=== PATIENT | female | born 1960 | race Caucasian/White ===

== ENCOUNTER 2023-11-12 15:56 | Inpatient (IN) ==
[2023-11-12 16:29] LABS: Basophils # (auto) 0.02 K/uL (0.00-0.20); Basophils % (auto) 0.3 %; Eosinophils # (auto) 0.13 K/uL (0.00-0.50); Eosinophils % (auto) 2.2 %; Hematocrit (blood only) 35.7 % (37.0-47.0); Hemoglobin 11.8 g/dl (12.0-16.0); Immature Granulocytes # (auto) 0.02 K/uL (0.01-0.20); Immature Granulocytes % (auto) 0.3 %; Lymphocytes # (auto) 1.93 K/uL (1.20-3.40); Lymphocytes % (auto) 33.3 %; Mean Corpuscular Hemoglobin 33.2 pg (25.0-34.0); Mean Corpuscular Hgb Conc 33.1 g/dL (32.0-36.0); Mean Corpuscular Volume 100.6 fL (80.0-100.0); Mean Platelet Volume 11.1 fL (9.4-12.4); Monocytes # (auto) 0.89 K/uL (0.11-0.59); Monocytes % (auto) 15.4 %; Neutrophils % (auto) 48.5 %; Platelet Count 122 K/uL (130-400); RDW Coefficient of Variation 13.3 % (11.5-14.5); RDW Standard Deviation 48.6 fL (36.4-46.3); Red Blood Count 3.55 M/uL (4.20-5.40); White Blood Count 5.79 K/ul (4.8-10.8)
[2023-11-12 16:45] LABS: Albumin Globulin Ratio 1.2 (0.9-2); Albumin Level 4.5 gm/dl (3.4-5.0); BUN Creatinine Ratio 22.4 (10-20); Bilirubin,Total 0.6 mg/dl (0.2-1.0); Calcium 9.4 mg/dl (8.6-10.3); Creatinine Clr Calc Pharmacy 31.9 ml/min; Est GFR (African American) 22.3 ml/min; Est GFR (Non-African American) 19.2 ml/min; Globulin 3.9 gm/dl (2.5-4.0); Total Protein 8.4 gm/dl (6.0-8.3)
[2023-11-12] MEDS: SODIUM CHLORIDE 0.9% 1,000 ML IV ONE (16:48)
[2023-11-12 16:59] LABS: Appearance Urine Clear (Clear); Bacteria Urine Automated Negative (Negative); Bilirubin Urine Negative (Negative); Blood Urine 3+ (Negative); Color Urine Yellow; Glucose Urine UA Negative (Negative); Ketones Urine Negative (Negative); Leukocyte Esterase Urine Negative (Negative); Nitrite Urine Negative (Negative); Protein Urine 2+ (Negative); RBC Urine Automated >30 /hpf (0-4); Urobilinogen Urine Negative (Negative); pH Urine 5.5 (4.5-7.5)
--- NOTE | 2023-11-12 17:02 | Emergency Department Note ---
Impression & Plan ELVI (acute kidney injury), Hematuria ED Provider Note NAME: ABDOULAYE PRICE AGE: 63 SEX: F : 1960 ARRIVES VIA: Walk-In INFORMANT: Patient, ED PROVIDER(S): Torres Verdugo DO CHIEF COMPLAINT: Elevated creatinine HPI: The patient is a 63-year-old female who has a history of ulcerative colitis who receives immunotherapy. She was sent to the emergency department because her labs prior to receiving her immunotherapy showed an elevated creatinine. She was sent to the emergency department for further evaluation. The patient denies having any nausea or vomiting. She denies having any chest pain. She has noticed some shortness of breath with exertion. ROS: See above HPI for pertinent positives & negatives. A total of 10 systems reviewed and were otherwise negative. PAST MEDICAL HISTORY: See Below PAST SURGICAL HISTORY: See Below FAMILY HISTORY: See Below SOCIAL HISTORY: See Below HOME MEDICATIONS: See Below ALLERGIES: See Below VITALS: See Below PHYSICAL EXAMINATION: GENERAL: Patient is awake alert in no acute distress patient is resting comfortably and showing no signs of anxiety EYES: The conjunctivae are clear. The pupils are round and reactive. EARS, NOSE, MOUTH AND THROAT: The nose is without any evidence of any deformity. NECK: The neck is nontender and supple. RESPIRATORY: Normal respiratory effort is noted there is no evidence of wheezing rhonchi or rales CARDIOVASCULAR: Regular rate and rhythm noted there no murmurs rubs or gallops normal S1 normal S2. GASTROINTESTINAL: The abdomen was mildly distended. There is no tenderness guarding rigidity MUSCULOSKELETAL/EXTREMITIES: There is no evidence of gross deformity full range of motion is noted in the hips and shoulders. SKIN: There is no obvious evidence of any rash. There are no petechiae, pallor or cyanosis noted. NEUROLOGIC: Patient is awake alert and oriented x3 strength is symmetric patellar reflexes are 2+ bilaterally MEDICAL DECISION MAKING: The patient is a 63-year-old female who presented to the emergency department for an evaluation of elevated creatinine. The patient followed up for her medication shot today. She had labs done prior to receiving her injection and was told that her creatinine was elevated. She was referred to the emergency department for "repeat labs". The patient was treated with IV fluids the emergency department. She was found to have an elevated blood pressure while in the emergency department. I am unsure if this is secondary to the elevation in her creatinine and some sort of acute kidney injury. I discussed her condition with the on-call [facility] hospitalist. They have agreed to evaluate the patient in the emergency department for further management and disposition Triage Nursing notes reviewed. Prior medical records reviewed Vital Signs: reviewed and remarkable for elevated blood pressure. Differential diagnosis: Infection, dehydration, metabolic abnormality, hypo/hyperglycemia, electrolyte disturbance, anemia, hypoxia, cardiac sources, intracerebral event, toxicologic, neurologic, as well as other pathologies. ER treatment provided: See below Diagnostics interpreted by me: ECG: EKG was obtained in the emergency department. My interpretation is normal sinus rhythm at [address] segment abnormalities were noted. There is no ectopy. No previous tracing was available Cardiac Monitoring: An order was placed for continuous cardiac monitoring. The monitor shows a rate of 89 bpm with sinus rhythm. Laboratory studies: As stated above and show below. Imaging studies: See below. Radiographic imaging was reviewed by myself Consultation(s): I discussed this case with Dr. Figueroa who is on-call for the [facility]ist group. Past Med/Surg History Medical History (Updated 11/12/23 @ 21:18 by Torres Verdugo DO) Arthritis "IBD ARTHRITIS" Ulcerative colitis Hypothyroidism Post traumatic stress disorder Anxiety History of COVID-19 05/26/22 VIA HOME TEST Sleep apnea CPAP Surgical History History of colonoscopy History of laparoscopy [place] teeth removed Family History Other No family history of adverse response to anesthesia Social History Smoking Status: Never smoker Second Hand Exposure: Yes ( A CHILD); Hx Alcohol Use: Yes Alcohol type: hard liquor Preferred Language: Latvian [employer] Required: No Beliefs That Will Affect Care: None Current Living Situation: Spouse Feels Safe at Home: Yes Assistive Devices: Contacts and CPAP Allergies Allergies Allergy/AdvReac Type Severity Reaction Status Date / Time poison gil extract Allergy Severe weeping Verified 11/12/23 19:54 sores ragweed pollen Allergy Mild ITCHY EYES Verified 11/12/23 19:54 Home Meds Home Medications Medication Instructions Recorded Confirmed ascorbic acid (vitamin C) 1,000 mg 1 g PO QAM 03/21/22 11/12/23 tablet (Vitamin C) cholecalciferol (vitamin D3) 50 50 mcg PO QAM 03/21/22 11/12/23 mcg (2,000 unit) capsule (Vitamin D3) cyanocobalamin (vitamin B-12) 1,000 mcg PO QAM 03/21/22 11/12/23 1,000 mcg tablet (Vitamin B-12) mirtazapine 15 mg tablet 15 mg PO HS 03/21/22 11/12/23 montelukast 10 mg tablet 10 mg PO HS 03/21/22 11/12/23 albuterol sulfate 90 mcg/actuation 2 puff inhalation Q6 PRN Shortness 11/12/23 11/12/23 aerosol inhaler Of Breath Or Wheezing alprazolam 0.5 mg disintegrating 0.5 mg PO DAILY PRN Anxiety 11/12/23 11/12/23 tablet baclofen 10 mg tablet 10 mg PO BID PRN Muscle Pain 11/12/23 11/12/23 citalopram 20 mg tablet 20 mg PO QAM 11/12/23 11/12/23 levothyroxine 137 mcg capsule 137 mcg PO DAILYBB 11/12/23 11/12/23 tramadol 50 mg tablet 50 mg PO Q6 PRN Pain 11/12/23 11/12/23 Previous Rx's Medication Instructions Recorded adalimumab 40 mg/0.4 mL See Rx Instructions subcut 05/23/21 subcutaneous pen kit (Humira(CF) .COMPLEX #2 ea Pen) vedolizumab 300 mg intravenous 300 mg IV Q8WK #1 ea 05/23/21 solution (Entyvio) Results & Data (ED) Vital Signs Vital Signs - 24 hr 11/12/23 15:58 11/12/23 16:01 11/12/23 16:52 Temperature 36.6 C Temperature Source Temporal Artery Scan Pulse Rate 101 H Pulse Rate [Apical] 88 Respiratory Rate 20 20 Respiratory Effort / Characteristics Non-Labored Respiratory Depth Normal Blood Pressure [Left Arm] Blood Pressure Mean [Left Arm] Pulse Oximetry 97 97 97 Oxygen Delivery Method Room Air Room Air Room Air Sepsis Recent Fever Within 48 Hours No Sepsis New/Unexplained Change in Mental Status No Sepsis Action Taken by Nursing No Action Required 11/12/23 17:17 11/12/23 19:48 Temperature Temperature Source Pulse Rate 89 Pulse Rate [Apical] 91 H Respiratory Rate 18 Respiratory Effort / Characteristics Non-Labored Respiratory Depth Normal Blood Pressure [Left Arm] 189/106 H Blood Pressure Mean [Left Arm] 133 Pulse Oximetry 96 Oxygen Delivery Method Room Air Sepsis Recent Fever Within 48 Hours Sepsis New/Unexplained Change in Mental Status Sepsis Action Taken by Assisted Medications Current Medication List: was personally reviewed by me Laboratory Data Attestation: I reviewed the patient's lab results. 11/12/23 16:04 11/12/23 16:04 Lab Results 11/12/23 11/12/23 Range/Units 16:04 17:05 WBC 5.79 (4.8-10.8) K/ul RBC 3.55 L (4.20-5.40) M/uL Hgb 11.8 L (12.0-16.0) g/dl Hct 35.7 L (37.0-47.0) % MCV 100.6 H (80.0-100.0) fL MCH 33.2 (25.0-34.0) pg MCHC 33.1 (32.0-36.0) g/dL RDW Std Deviation 48.6 H (36.4-46.3) fL RDW Coeff of Yobany 13.3 (11.5-14.5) % Plt Count 122 L (130-400) K/uL MPV 11.1 (9.4-12.4) fL Immature Gran % (Auto) 0.3 % Neut % (Auto) 48.5 % Lymph % (Auto) 33.3 % [place] % (Auto) 15.4 % Eos % (Auto) 2.2 % Baso % (Auto) 0.3 % Neut # (Auto) 2.80 (1.40-6.50) K/uL Lymph # (Auto) 1.93 (1.20-3.40) K/uL [place] # (Auto) 0.89 H (0.11-0.59) K/uL Eos # (Auto) 0.13 (0.00-0.50) K/uL Baso # (Auto) 0.02 (0.00-0.20) K/uL Immature Gran # (Auto) 0.02 (0.01-0.20) K/uL PT 11.6 (9.0-12.0) Seconds INR 1.1 (0.9-1.1) APTT 28 (21-31) Seconds PTT Ratio 1.0 Sodium 138 (136-145) mmol/L Potassium 4.0 (3.5-5.1) mmol/L Chloride 105 (98-107) mmol/L Carbon Dioxide 25 (21-32) mmol/L Anion Gap 8 (3-11) BUN 58 H (6-23) mg/dl Creatinine 2.59 H (0.6-1.2) mg/dl Est Cr Clr Drug Dosing 31.9 ml/min Est GFR ( Amer) 22.3 ml/min Est GFR (Non-Af Amer) 19.2 ml/min BUN/Creatinine Ratio 22.4 H (10-20) Glucose 93 (70-99(Fasting)) mg/dl Calcium 9.4 (8.6-10.3) mg/dl Total Bilirubin 0.6 (0.2-1.0) mg/dl AST 60 H (13-39) U/L ALT 53 H (7-52) U/L Alkaline Phosphatase 71 (34-104) U/L Troponin I High Sens 42.0 H 40.2 H (0-14) pg/ml Total Protein 8.4 H (6.0-8.3) gm/dl Albumin 4.5 (3.4-5.0) gm/dl Globulin 3.9 (2.5-4.0) gm/dl Albumin/Globulin Ratio 1.2 (0.9-2) Lipase 33 (11-82) U/L Folate 6.23 (>5.38) ng/ml Urine Color Yellow Urine Appearance Clear (Clear) Urine pH 5.5 (4.5-7.5) Ur Specific [place] 1.010 (1.000-1.030) Urine Protein 2+ H (Negative) Urine Glucose (UA) Negative (Negative) Urine Ketones Negative (Negative) Urine Blood 3+ H (Negative) Urine Nitrite Negative (Negative) Urine Bilirubin Negative (Negative) Urine Urobilinogen Negative (Negative) Ur Leukocyte Esterase Negative (Negative) Urine WBC (Auto) 1-5 (0-5) /hpf Urine RBC (Auto) >30 H (0-4) /hpf U Hyaline Cast (Auto) 1-5 (0-5) /lpf U Epithel Cells (Auto) 5-10 H (0-5) /lpf Urine Bacteria (Auto) Negative (Negative) Ur Random Creatinine 36.3 mg/dl U Random Total Protein 109.8 H (0-11.9) mg/dl Protein/Creatinin Ratio 3.0 H (0-0.2) Administered Medications Discontinued Medications Alprazolam (Alprazolam 0.5 Mg Tablet) 0.5 mg PO NOW STA Stop: 11/12/23 19:10 Last Admin: 11/12/23 19:17 Dose: 0.5 mg Documented By: KAREN Sodium Chloride (Nss) 1,000 mls @ 999 mls/hr IV .Q1H1M ONE Stop: 11/12/23 17:36 Last Infusion: 11/12/23 18:13 Dose: Infused Documented By: Admin: 11/12/23 16:48 Dose: 999 mls/hr Documented By: STERLING Ceftriaxone Sodium (Rocephin) 2,000 mg in 50 mls @ 100 mls/hr IV NOW STA Stop: 11/12/23 19:02 Last Infusion: 11/12/23 19:37 Dose: Infused Documented By: Admin: 11/12/23 18:42 Dose: 100 mls/hr Documented By: STERLING Imaging Data Attestation: I personally reviewed and interpreted this imaging study as follows: My Impression: 1 view chest x-ray was obtained in the emergency department. My interpretation is no free air or definite infiltrate, final report below CT of the abdomen and pelvis was obtained in the emergency department. My interpretation is no free air or signs of bowel obstruction, final report below Radiologist's Impression: Chest X-Ray 11/12/23 16:36 SINGLE VIEW CHEST CLINICAL HISTORY: Atypical chest pain. FINDINGS: An AP, portable, upright chest radiograph is obtained. No prior studies are available for comparison at the time of dictation. The cardiomediastinal silhouette is unremarkable. There is mild elevation of the right hemidiaphragm. The lungs and pleural spaces are clear noting mild bibasilar atelectasis. No pneumothorax is seen. The skeletal structures are osteopenic. The bony thorax is grossly intact. Arthritic change is noted in the shoulders. IMPRESSION: No active disease in the chest. ACT 112: Negative or not required by law. Electronically signed by: German Granado M.D. 11/12/2023 5:17 PM Abdomen/Pelvis CT 11/12/23 17:18 CT SCAN OF THE ABDOMEN AND PELVIS WITHOUT IV CONTRAST CLINICAL HISTORY: Left flank pain. COMPARISON STUDY: Abdominal CT dated 03/21/2022. TECHNIQUE: CT scan of the abdomen and pelvis is performed from the lung bases to the proximal femora. Images are reviewed in the axial, sagittal, and coronal planes. IV contrast was not administered for this examination. A dose lowering technique was utilized adhering to the principles of ALARA. CT DOSE: 1779.56 mGy.cm FINDINGS: Lung bases: The heart is normal in size and without pericardial effusion. The lung bases are clear noting dependent atelectasis. Liver: The unenhanced liver is enlarged, measuring 24 cm in length. The liver is heterogeneous and cirrhotic in morphology. There is hypertrophy of the left lobe and nodularity of the surface contour. There is no intrahepatic biliary ductal dilatation. Gallbladder: Unremarkable. Spleen: The spleen is enlarged measuring 14.8 cm in length. Pancreas: The unenhanced pancreas is moderately atrophic and grossly unremarkable. Adrenal glands: Unremarkable. Kidneys: The unenhanced kidneys demonstrate mild cortical atrophy and are without hydronephrosis. No renal calculi are identified and there is no ureteral stone. There is no evidence of contour deforming renal mass lesion. Abdominal vasculature: The abdominal aorta is normal in course and caliber noting moderate to advanced atherosclerotic calcification. Bowel: There is mild colonic fecal retention. No bowel obstruction is seen. The appendix is well-visualized and normal. Peritoneum: There is no intraperitoneal free air or abdominal ascites. There is a fat-containing umbilical hernia. Lymphadenopathy: None. Pelvic viscera: The bladder, uterus, and adnexa are normal as visualized. Skeletal structures: The skeletal structures are osteopenic. There is mild lumbosacral spondylosis. No lytic or blastic lesions are seen. 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 IMPRESSION: 1. No acute infectious or inflammatory findings are identified in the abdomen or pelvis. 2. The liver is enlarged, heterogeneous, and cirrhotic in morphology. 3. Splenomegaly. 4. 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 5. Additional findings as above. ACT 112: Negative or not required by law. Electronically signed by: German Granado M.D. 11/12/2023 5:51 PM Discharge Plan Visit Data Chief Complaint: Abnormal Labs/Diagnostic Testing Stated Complaint: ABNORMAL LABS, ACUTE KIDNEY INJURY ED Provider: Torres Verdugo Discharge Problem: ELVI (acute kidney injury), Hematuria Patient Disposition: Being Evaluated by Hospitalist Forms Stand Alone Forms: My [facility] Prescriptions Prescriptions: No Action Entyvio 300 mg recon soln 300 mg IV Q8WK Qty: 1 6RF Humira(CF) Pen 40 mg/0.4 mL pen injector kit See Rx Instructions subcut .COMPLEX Qty: 2 2RF Rx Instructions: inject one - 40 mg/0.4 mL pen every 2 weeks subcut ascorbic acid (vitamin C) [Vitamin C] 1,000 mg Tablet 1 g PO QAM cyanocobalamin (vitamin B-12) [Vitamin B-12] 1,000 mcg Tablet 1,000 mcg PO QAM cholecalciferol (vitamin D3) [Vitamin D3] 50 mcg (2,000 unit) Capsule 50 mcg PO QAM montelukast 10 mg tablet 10 mg PO HS mirtazapine 15 mg tablet 15 mg PO HS alprazolam 0.5 mg tablet,disintegrating 0.5 mg PO DAILY PRN (Reason: Anxiety) albuterol sulfate 90 mcg/actuation HFA aerosol inhaler 2 puff INHALATION Q6 PRN (Reason: Shortness Of Breath Or Wheezing) citalopram 20 mg tablet 20 mg PO QAM levothyroxine 137 mcg capsule 137 mcg PO DAILYBB tramadol 50 mg tablet 50 mg PO Q6 PRN (Reason: Pain) baclofen 10 mg Tablet 10 mg PO BID PRN (Reason: Muscle Pain) Referrals Referrals: Denia Calderon MD [Primary Care Provider] - Discharge Problem: Hematuria Qualifiers: Hematuria type: unspecified type Qualified Code(s): R31.9 - Hematuria, unspecified
[2023-11-12 17:09] LABS: INR 1.1 (0.9-1.1); Partial Thromboplastin Time 28 Seconds (21-31); Prothrombin Time 11.6 Seconds (9.0-12.0)
--- NOTE | 2023-11-12 17:19 | XRay Report ---
SINGLE VIEW CHEST CLINICAL HISTORY: Atypical chest pain. FINDINGS: An AP, portable, upright chest radiograph is obtained. No prior studies are available for c omparison at the time of dictation. The cardiomediastinal silhouette is unremarkable. There is mild e levation of the right hemidiaphragm. The lungs and pleural spaces are clear noting mild bibasilar ate lectasis. No pneumothorax is seen. The skeletal structures are osteopenic. The bony thorax is grossly intact. Arthritic change is noted in the shoulders. IMPRESSION: No active disease in the chest. ACT 112: Negative or not required by law. Electronically signed by: German Granado M.D. 11/12/2023 5:17 PM
--- NOTE | 2023-11-12 17:53 | CT Scan Report ---
CT SCAN OF THE ABDOMEN AND PELVIS WITHOUT IV CONTRAST CLINICAL HISTORY: Left flank pain. COMPARISON STUDY: Abdominal CT dated 03/21/2022. TECHNIQUE: CT scan of the abdomen and pelvis is performed from the lung bases to the proximal femora. Images are reviewed in the axial, sagittal, and coronal planes. IV contrast was not administered for this examination. A dose lowering technique was utilized adhering to the principles of ALARA. CT DOSE: 1779.56 mGy.cm FINDINGS: Lung bases: The heart is normal in size and without pericardial effusion. The lung bases are clear no ting dependent atelectasis. Liver: The unenhanced liver is enlarged, measuring 24 cm in length. The liver is heterogeneous and ci rrhotic in morphology. There is hypertrophy of the left lobe and nodularity of the surface contour. T here is no intrahepatic biliary ductal dilatation. Gallbladder: Unremarkable. Spleen: The spleen is enlarged measuring 14.8 cm in length. Pancreas: The unenhanced pancreas is moderately atrophic and grossly unremarkable. Adrenal glands: Unremarkable. Kidneys: The unenhanced kidneys demonstrate mild cortical atrophy and are without hydronephrosis. No renal calculi are identified and there is no ureteral stone. There is no evidence of contour deformin g renal mass lesion. Abdominal vasculature: The abdominal aorta is normal in course and caliber noting moderate to advance d atherosclerotic calcification. Bowel: There is mild colonic fecal retention. No bowel obstruction is seen. The appendix is well-vis ualized and normal. Peritoneum: There is no intraperitoneal free air or abdominal ascites. There is a fat-containing umbi lical hernia. Lymphadenopathy: None. Pelvic viscera: The bladder, uterus, and adnexa are normal as visualized. Skeletal structures: The skeletal structures are osteopenic. There is mild lumbosacral spondylosis. N o lytic or blastic lesions are seen. 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 IMPRESSION: 1. No acute infectious or inflammatory findings are identified in the abdomen or pelvis. 2. The liver is enlarged, heterogeneous, and cirrhotic in morphology. 3. Splenomegaly. 4. 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 5. Additional findings as above. ACT 112: Negative or not required by law. Electronically signed by: German Granado M.D. 11/12/2023 5:51 PM
--- NOTE | 2023-11-12 18:35 | History & Physical Report ---
Date of Service November 12, 2023 Assessment & Plan (1) ELVI (acute kidney injury): Plan: -Admit to med/tele -Currently Hypertensive with systolics in the 160's but otherwise stable -Presented to the ED today after being told by the infusion center that routine labs were abnormal -Cr is 2.58 today, baseline appears near 0.8 -No signs of obstruction on CT of the abd/pelvis, has not been taking NSAID's, does not have a UTI as her UA is without signs of infection and she is asymptomatic -She has been hypertensive since arrival, states she has severe white coat syndrome, home systolic BP normally runs in the 130's but unsure how often she is checking it at home -Protein:Cr ordered on admission is 3.0, this could be indicative of Nephrotic syndrome or another intra-renal issue, will consult Nephrology -S/P 1L NSS in the ED, we will give 1L NSS at 80 mL/hr overnight for light hydration -Avoid nephrotoxic agents -Monitor intake/output q6h -BL DANISHA's for DVT PPX for now -HH/renal dialysis diet with 2gm sodium restriction for now -AM CBC, CMP, mag, PT/INR (2) HTN (hypertension): Plan: -Has been hypertensive with systolics in the 160-180's since arrival -Is otherwise asymptomatic -Was very anxious at the start of my exam, has a hx of severe anxiety and white coat syndrome -Not currently on outpatient antihypertensives -We will give her a dose of her home xanax now and recheck her BP in both arms after -If still hypertensive will add prn hydralazine for now -Continue to monitor on tele -Will obtain TTE tomorrow (3) Cirrhosis: Plan: -Noted on CT of the abd/pelvis along with splenomegaly -Portal vein and CBD are WNL -INR is WNL -Mild AST and ALT elevations today, have been higher in the past -Likely due to progression of her fatty liver disease, although she was a daily alcohol user until last month and Humira can cause hepatotoxicity -Monitor daily LFT's and platelets -If LFT's are stable could likely FU with [facility] outpatient (4) Thrombocytopenia: Plan: -Platelets of 122 today -No signs of jena bleeding -Likely due to her Cirrhosis -Monitor daily CBC -Monitor for signs of bleeding (5) Elevated troponin: Plan: -Initial high sen trop elevated at 42-->40 on 2 hour repeat -Patient denies chest pain -No acute ST segment or T-wave changes -Likely falsely elevated due to ELVI -Continue to monitor on tele -Monitor TTE tomorrow (6) Microscopic hematuria: Plan: -3+ blood and >30 RBC's on UA today -No gross hematuria noted -No acute bladder abnormalities on CT of the abd/pelvis -No signs of UTI, was given a dose of Ceftriaxone in the ED -Follow Nephrology consult -May need Urology consult for cystoscopy (7) Avascular necrosis of bones of both hips: Plan: -Noted on CT of the abd/pelvis today -Had known arthritis of the BL hips on previous CT's -Pain has been slightly worse recently but denies significant ambulatory dysfunction or recent trauma -Patient is on prn tramadol and baclofen at home for pain >Will half the doses of both for now with her hepatic and renal dysfunction at this time but will not hold completely to avoid withdrawals (8) Anxiety: Plan: -Continue xanax, citalopram -Will hold HS Remeron at this time as it can be both hepatotoxic and nephrotoxic (9) Hypothyroidism: Plan: -Conitnue levothyroxine (10) Sleep apnea: Plan: -HS CPAP ordered Plan The patient was discussed with Dr. Figueroa at the time of the admission History of Present Illness Chief Complaint: Abnormal outpatient labs Primary Care Provider: Denia Calderon MD Laura is a 63 year old female with a PMH significant for Ulcerative Colitis (On Entyvio and Cosentyx), uncontrolled HTN, anxiety who was sent to the [facility] ED from the Infusion Center this afternoon after routine outpatient labs were noted to be abnormal. On arrival to the ED she was noted to be Hypertensive at 189/106, tachycardic at 101, but otherwise stable. Labs were significant for a hgb of 11.8 (down from 13 as of 04/24/23), platelets of 122 (down from 147 as of 04/24), Cr of 2.59 (baseline is near 0.8), BUN of 58, AST of 60, ALT of 53, initial high sen trop of 42, and UA with 2+ protein, 3+ blood, >30 RBC, and 5-10 epithelial cells. Chest xray was negative for acute findings. CT of the abd/pelvis wo IV con was read as "1. No acute infectious or inflammatory findings are identified in the abdomen or pelvis. 2. The liver is enlarged, heterogeneous, and cirrhotic in morphology. 3. Splenomegaly. 4. 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 5. Additional findings as above.". Prior to admission the patient was given 1L NSS and one dose of Ceftriaxone. At the time of the exam the patient was sitting in bed in no acute distress with her sitting bedside, history was obtained from both. She states that she receives Q8W Entyvio infusions and Q2W Humira infusions with her last Humira infusion being on 11/04. She had her infusion of Entyvio this am where her routine labs were drawn. When asked, she denies recent fever, chills, chest pain, SOB, cough, abd pain, nausea, vomiting, diarrhea, dysuria, hematuria, melena, LE swelling, and recent trauma. She confirms her previous diagnosis of fatty liver disease but did not know that it progressed to cirrhosis. When asked about HTN, she states that she is always hypertensive when her BP is checked at medical facilities but her systolic BP normally runs in the 130's when it's checked at home. She denies recent NSAID use or frequent Acetaminophen use. She has never used tobacco. When asked about alcohol use, she states that she was drinking 2, double shots of vodka nightly for "years". She recently quit drinking last month and denies any withdrawal symptoms. Regarding the avascular necrosis of the BL hips, she states that she has had arthritis in her hips for years. Her pain has been worse recently but she denies ambulatory dysfunction. She is a full code and wishes for her to make medical decisions for her if she cannot make them herself. Please refer to Dr. Figueroa' attestation for any changes to the treatment plan Allergies Allergy/AdvReac Type Severity Reaction Status Date / Time poison gil extract Allergy Severe weeping Verified 11/12/23 19:54 sores ragweed pollen Allergy Mild ITCHY EYES Verified 11/12/23 19:54 Home Medications Medication Instructions Recorded Confirmed Type adalimumab 40 mg/0.4 mL See Rx Instructions subcut 05/23/21 11/12/23 Rx subcutaneous pen kit (Humira(CF) .COMPLEX #2 ea Pen) vedolizumab 300 mg intravenous 300 mg IV Q8WK #1 ea 05/23/21 11/12/23 Rx solution (Entyvio) ascorbic acid (vitamin C) 1,000 mg 1 g PO QAM 03/21/22 11/12/23 History tablet (Vitamin C) cholecalciferol (vitamin D3) 50 50 mcg PO QAM 03/21/22 11/12/23 History mcg (2,000 unit) capsule (Vitamin D3) cyanocobalamin (vitamin B-12) 1,000 mcg PO QAM 03/21/22 11/12/23 History 1,000 mcg tablet (Vitamin B-12) mirtazapine 15 mg tablet 15 mg PO HS 03/21/22 11/12/23 History montelukast 10 mg tablet 10 mg PO HS 03/21/22 11/12/23 History albuterol sulfate 90 mcg/actuation 2 puff inhalation Q6 PRN Shortness 11/12/23 11/12/23 History aerosol inhaler Of Breath Or Wheezing alprazolam 0.5 mg disintegrating 0.5 mg PO DAILY PRN Anxiety 11/12/23 11/12/23 History tablet baclofen 10 mg tablet 10 mg PO BID PRN Muscle Pain 11/12/23 11/12/23 History citalopram 20 mg tablet 20 mg PO QAM 11/12/23 11/12/23 History levothyroxine 137 mcg capsule 137 mcg PO DAILYBB 11/12/23 11/12/23 History tramadol 50 mg tablet 50 mg PO Q6 PRN Pain 11/12/23 11/12/23 History Past Med/Surg History Medical History (Updated 11/12/23 @ 20:03 by Erickson Henriquez PA-C) Arthritis "IBD ARTHRITIS" Ulcerative colitis Hypothyroidism Post traumatic stress disorder Anxiety History of COVID-19 05/26/22 VIA HOME TEST Sleep apnea CPAP Surgical History History of colonoscopy History of laparoscopy [place] teeth removed Family History Other No family history of adverse response to anesthesia Social History Smoking Status: Never smoker Second Hand Exposure: Yes ( A CHILD); Hx Alcohol Use: Yes Alcohol type: hard liquor Preferred Language: Japanese [employer] Required: No Beliefs That Will Affect Care: None Current Living Situation: Spouse Feels Safe at Home: Yes Assistive Devices: Contacts and CPAP Physical Exam Physical Exam: Physical Exam: General: In no acute distress, stated age, morbidly obese, non-toxic appearing HEENT: Normocephalic, atraumatic, no scleral icterus, pupils around round, symmetrical, and reactive to light, moist mucus membranes, trachea midline, no thyromegaly Chest/Pulm: No respiratory distress, symmetrical chest expansion, clear breath sounds throughout Cardiac: RRR, no murmurs noted Abdomen: Negative for ascites and bruising, normoactive bowel sounds, soft, non-tender to palpation throughout Musculoskeletal: Symmetrical and without signs of acute trauma, upper and lower extremities with full ROM, no atrophy, spasticity, or flaccidity Extremities: Radial, dorsalis pedis, and posterior tibial pulses are intact and symmetrical, no edema noted in the BL LE's Skin: Warm, dry, no rashes , lesions, or scars noted Neuro: Alert and oriented to person, place, month, year, and president, no focal defects, no tremors noted Psych: Anxious but polite and cooperative during the exam Results & Data Results & Data Vital Signs (Past 12 Hours) Vital Signs Temp Pulse Pulse Resp BP Pulse Ox O2 Del Method 11/12/23 17:17 91 H 18 189/106 H 96 Room Air 11/12/23 16:52 97 Room Air 11/12/23 16:01 88 20 97 Room Air 11/12/23 15:58 36.6 C 101 H 20 97 Room Air Laboratory Results Abnormal lab results 11/12/23 11/12/23 Range/Units 16:04 17:05 RBC 3.55 L (4.20-5.40) M/uL Hgb 11.8 L (12.0-16.0) g/dl Hct 35.7 L (37.0-47.0) % MCV 100.6 H (80.0-100.0) fL RDW Std Deviation 48.6 H (36.4-46.3) fL Plt Count 122 L (130-400) K/uL [place] # (Auto) 0.89 H (0.11-0.59) K/uL BUN 58 H (6-23) mg/dl Creatinine 2.59 H (0.6-1.2) mg/dl BUN/Creatinine Ratio 22.4 H (10-20) AST 60 H (13-39) U/L ALT 53 H (7-52) U/L Troponin I High Sens 42.0 H 40.2 H (0-14) pg/ml Total Protein 8.4 H (6.0-8.3) gm/dl Urine Protein 2+ H (Negative) Urine Blood 3+ H (Negative) Urine RBC (Auto) >30 H (0-4) /hpf U Epithel Cells (Auto) 5-10 H (0-5) /lpf U Random Total Protein 109.8 H (0-11.9) mg/dl Protein/Creatinin Ratio 3.0 H (0-0.2) Diagnostic Findings Chest X-Ray 11/12/23 16:36 SINGLE VIEW CHEST CLINICAL HISTORY: Atypical chest pain. FINDINGS: An AP, portable, upright chest radiograph is obtained. No prior studies are available for comparison at the time of dictation. The cardiomediastinal silhouette is unremarkable. There is mild elevation of the right hemidiaphragm. The lungs and pleural spaces are clear noting mild bibasilar atelectasis. No pneumothorax is seen. The skeletal structures are osteopenic. The bony thorax is grossly intact. Arthritic change is noted in the shoulders. IMPRESSION: No active disease in the chest. ACT 112: Negative or not required by law. Electronically signed by: German Granado M.D. 11/12/2023 5:17 PM Abdomen/Pelvis CT 11/12/23 17:18 CT SCAN OF THE ABDOMEN AND PELVIS WITHOUT IV CONTRAST CLINICAL HISTORY: Left flank pain. COMPARISON STUDY: Abdominal CT dated 03/21/2022. TECHNIQUE: CT scan of the abdomen and pelvis is performed from the lung bases to the proximal femora. Images are reviewed in the axial, sagittal, and coronal planes. IV contrast was not administered for this examination. A dose lowering technique was utilized adhering to the principles of ALARA. CT DOSE: 1779.56 mGy.cm FINDINGS: Lung bases: The heart is normal in size and without pericardial effusion. The lung bases are clear noting dependent atelectasis. Liver: The unenhanced liver is enlarged, measuring 24 cm in length. The liver is heterogeneous and cirrhotic in morphology. There is hypertrophy of the left lobe and nodularity of the surface contour. There is no intrahepatic biliary ductal dilatation. Gallbladder: Unremarkable. Spleen: The spleen is enlarged measuring 14.8 cm in length. Pancreas: The unenhanced pancreas is moderately atrophic and grossly unremarkable. Adrenal glands: Unremarkable. Kidneys: The unenhanced kidneys demonstrate mild cortical atrophy and are without hydronephrosis. No renal calculi are identified and there is no ureteral stone. There is no evidence of contour deforming renal mass lesion. Abdominal vasculature: The abdominal aorta is normal in course and caliber noting moderate to advanced atherosclerotic calcification. Bowel: There is mild colonic fecal retention. No bowel obstruction is seen. The appendix is well-visualized and normal. Peritoneum: There is no intraperitoneal free air or abdominal ascites. There is a fat-containing umbilical hernia. Lymphadenopathy: None. Pelvic viscera: The bladder, uterus, and adnexa are normal as visualized. Skeletal structures: The skeletal structures are osteopenic. There is mild lumbosacral spondylosis. No lytic or blastic lesions are seen. There is avasc ular necrosis of the femoral heads, left greater than right. IMPRESSION: 1. No acute infectious or inflammatory findings are identified in the abdomen or pelvis. 2. The liver is enlarged, heterogeneous, and cirrhotic in morphology. 3. Splenomegaly. 4. 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 5. Additional findings as above. ACT 112: Negative or not required by law. Electronically signed by: German Granado M.D. 11/12/2023 5:51 PM ECG Additional Comments: Normal sinus rhythm Nonspecific ST and T wave abnormality Abnormal ECG No previous ECGs available Code Status & VTE Plan Code Status Full code VTE Prophylaxis Plan VTE Prophylaxis will be ordered: Yes Supervising Physician Co-Signing Physician Notes I have personally seen, evaluated and examined the patient. I have also personally discussed the management of the patient with the resident physician/DIEGO and I agree with the exam findings documented in the history and physical examination and the documented assessment and plan unless otherwise stated below. Brief Exam: In general is a pleasant 63-year-old female who is alert and oriented x 3 at time my exam she is accompanied by her at the time my examination. HEENT is normocephalic atraumatic. Heart is regular rate and rhythm with no murmur. Lungs: Are diminished but clear. Abdomen is obese soft and nontender remaining abdominal exam is somewhat equivocal given her body habitus. Extremities: Are intact with no significant edema Neurologically she is alert and oriented x 3. Assessment/plan: As described above. Please refer to orders for further planning. PG Care Time/CCT Total # of Minutes Spent Total Time Spent with Patient: Total time spent is greater than 50% in coordination of care (as documented) at patient's floor/unit and/or counseling patient: C[place] [address] INT INP/OBS CARE 3/75MIN Patient Type Established History Comprehensive Exam Comprehensive Medical Decision Making High Complexity Diagnoses ELVI (acute kidney injury) N17.9 HTN (hypertension) I10 Cirrhosis K74.60 Thrombocytopenia D69.6 Elevated troponin R79.89 Microscopic hematuria R31.29 Avascular necrosis of bones of both hips M87.051; M87.052 Anxiety F41.9 Hypothyroidism E03.9 Sleep apnea G47.30
[2023-11-12] MEDS: cefTRIAXone SODIUM 2,000 MG/50 ML BAG IV STA (18:42)
[2023-11-12] MEDS: ALPRAZolam 0.5 MG TABLET PO STA (19:17)
[2023-11-12 19:32] LABS: Total Protein Urine Random 109.8 mg/dl (0-11.9)
[2023-11-12 19:38] LABS: Creatinine Urine Random 36.3 mg/dl
[2023-11-12] MEDS: SODIUM CHLORIDE 0.9% 1,000 ML IV SCH (21:58)
[2023-11-12] MEDS ORDERED: BACLOFEN 10 MG TAB PO PRN (23:45)
[2023-11-12] MEDS ORDERED: METOPROLOL TARTRATE 1 MG/ML VIAL IV PRN (23:57)
[2023-11-13] MEDS: ALBUTEROL HFA 8 GM INHALER INH PRN
[2023-11-13] MEDS: METOPROLOL TARTRATE 1 MG/ML VIAL IV STA (00:07)
[2023-11-13 05:04] LABS: Albumin Globulin Ratio 1.1 (0.9-2); Albumin Level 3.9 gm/dl (3.4-5.0); BUN Creatinine Ratio 20.9 (10-20); Bilirubin,Total 0.5 mg/dl (0.2-1.0); Calcium 8.7 mg/dl (8.6-10.3); Creatinine Clr Calc Pharmacy 32.7 ml/min; Est GFR (African American) 22.9 ml/min; Est GFR (Non-African American) 19.8 ml/min; Globulin 3.5 gm/dl (2.5-4.0); Magnesium 1.9 mg/dl (1.7-2.4); Potassium 4.4 mmol/L (3.5-5.1); Total Protein 7.4 gm/dl (6.0-8.3)
[2023-11-13 05:24] LABS: INR 1.1 (0.9-1.1); Prothrombin Time 12.1 Seconds (9.0-12.0)
[2023-11-13] MEDS: LEVOTHYROXINE SODIUM 137 MCG TABLET PO SCH (06:37)
[2023-11-13 07:33] LABS: Basophils # (auto) 0.03 K/uL (0.00-0.20); Basophils % (auto) 0.5 %; Eosinophils # (auto) 0.06 K/uL (0.00-0.50); Hematocrit (blood only) 31.6 % (37.0-47.0); Hemoglobin 10.6 g/dl (12.0-16.0); Immature Granulocytes # (auto) 0.03 K/uL (0.01-0.20); Immature Granulocytes % (auto) 0.5 %; Lymphocytes # (auto) 1.07 K/uL (1.20-3.40); Mean Corpuscular Hemoglobin 33.2 pg (25.0-34.0); Mean Corpuscular Hgb Conc 33.5 g/dL (32.0-36.0); Mean Corpuscular Volume 99.1 fL (80.0-100.0); Mean Platelet Volume 11.2 fL (9.4-12.4); Monocytes # (auto) 0.83 K/uL (0.11-0.59); Monocytes % (auto) 13.9 %; Neutrophils # (auto) 3.94 K/uL (1.40-6.50); Neutrophils % (auto) 66.1 %; Platelet Count 101 K/uL (130-400); RDW Coefficient of Variation 13.3 % (11.5-14.5); Red Blood Count 3.19 M/uL (4.20-5.40); White Blood Count 5.96 K/ul (4.8-10.8)
[2023-11-13] MEDS: hydrALAZINE HCL 20 MG/ML VIAL IV PRN ×2 (08:24→11:05)
[2023-11-13] MEDS: CITALOPRAM 20 MG TAB PO SCH (08:25)
[2023-11-13] MEDS: ALPRAZolam 0.25 MG TABLET PO PRN (08:25)
--- NOTE | 2023-11-13 09:03 | Nephrology Consultation ---
Date of Consultation November 13, 2023 Assessment & Plan (1) ELVI (acute kidney injury): Non-oliguric. Volume status acceptable. Electrolytes normal. There is no emergent indication for renal replacement therapy. Baseline creatinine <1 mg/dL. Etiology of ELVI unclear. Clinical history is atypical for ATN. Patient is not clinically volume depleted. CT did not demonstrate obstruction. Urine studies and clinical history suggestive of acute GN. Thankfully, findings have not suggested RPGN. Serologic evaluation, including ESR, BRICE, ANCA, C3/C4, anti-BM, screening for viral hepatitis B and C, and PLA2r has been requested. I advised Laura that kidney biopsy may ultimately be required for definitive diagnosis. Urine protein excretion will be quantified with a 24 hour collection. PCR suggests possible nephrotic range proteinuria. Serum albumin normal. Please document strict I/Os. Repeat metabolic profile sent with additional laboratory studies. Medications are appropriate for kidney function. Baclofen stopped. (2) Microscopic hematuria: Non-smoker. No history of gross hematuria. CT without lesions. No casts reported on microscopy. Prospective monitoring will be provided. High suspicion for glomerular hematuria. (3) HTN (hypertension): Accelerated but Laura denies symptoms. Chronic history noted but not on medical therapy at home. Known history of significant white coat hypertension reported. Amlodipine was provided this morning. Defer RAASi pending additional monitoring of kidney function. Volume status is replete. IV saline discontinued. PRN labetalol and hydralazine ordered. I would favor labetalol. Additional 5 mg of Amlodipine can be provided if BP does not start to improve in the next hour. Renal duplex requested to r/o TOÑO and to assure there is no RVT. (4) Cirrhosis: Urine sodium pending. Presentation atypical for HRS --> non-oliguric and hypertensive. Cirrhotic based on imaging. Known history of HESTER. No liver biopsy. (5) Avascular necrosis of bones of both hips: History of Present Illness Reason for Consultation: ELVI, microscopic hematuria, HTN Requesting Physician: Sudhakar Garcia MD Attending Physician: Sudhakar Garcia MD History of Present Illness Laura Trevizo is a 63 year-old female with a history of hypothyroidism, ulcerative colitis, CHANTALE, morbid obesity, hypertension, AUGUSTO, and chronic liver disease attributed to HESTER. 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 Baseline creatinine is <1 mg/dL. Laboratory studies on presentation notable for a creatinine of 2.59 mg/dL. She denies any prior history of kidney injury or dysfunction. She has never been previously evaluated by a manager purchasing. Overall, Laura states that she has been feeling relatively well and was very surprised by the change in her blood work. She had no appreciated any fluid retention or edema. She denies any change in urine output. She had experienced an increased number of unformed bowel movements recently. She denies melena or hematochezia. She has not experienced skin rash or lesions. Polyarthritis involving the the small joints in her hands increased but without synovitis or effusions. Laura follows in the [facility] rheumatology clinic with Dr. Webster. Prior therapies in the past have included Humira and Cosentyx, as well as long periods of corticosteroid use. Laura was seen and evaluated in the ER with her at the bedside. She endorsed some anxiety overnight. She is feeling better this morning. She developed difficulty breathing that improved with BIPAP. This AM, she was weaned to a nasal canula. She did not endorse dyspnea during our conversation. She has not experienced any fevers or chills. Urine analysis was notable for microscopic hematuria and +3 protein. PCR 3.0. Urine microscopy with >30 RBC, no WBC, +hyaline casts. CT of the abdomen demonstrated the kidneys to be unobstructed. The liver is cirrhotic in appearance. AVN of the hips noted. She has a known history of chronic liver disease. This was attributed to HESTER. She has never had a liver biopsy. She has a drinking history which included 1-2 drinks nightly. She is a non-smoker. There is no significant history of NSAID use. Allergies Allergy/AdvReac Type Severity Reaction Status Date / Time poison gil extract Allergy Severe weeping Verified 11/12/23 19:54 sores ragweed pollen Allergy Mild ITCHY EYES Verified 11/12/23 19:54 Home Medications Medication Instructions Recorded Confirmed Type adalimumab 40 mg/0.4 mL See Rx Instructions subcut 05/23/21 11/12/23 Rx subcutaneous pen kit (Humira(CF) .COMPLEX #2 ea Pen) vedolizumab 300 mg intravenous 300 mg IV Q8WK #1 ea 05/23/21 11/12/23 Rx solution (Entyvio) ascorbic acid (vitamin C) 1,000 mg 1 g PO QAM 03/21/22 11/12/23 History tablet (Vitamin C) cholecalciferol (vitamin D3) 50 50 mcg PO QAM 03/21/22 11/12/23 History mcg (2,000 unit) capsule (Vitamin D3) cyanocobalamin (vitamin B-12) 1,000 mcg PO QAM 03/21/22 11/12/23 History 1,000 mcg tablet (Vitamin B-12) mirtazapine 15 mg tablet 15 mg PO HS 03/21/22 11/12/23 History montelukast 10 mg tablet 10 mg PO HS 03/21/22 11/12/23 History albuterol sulfate 90 mcg/actuation 2 puff inhalation Q6 PRN Shortness 11/12/23 11/12/23 History aerosol inhaler Of Breath Or Wheezing alprazolam 0.5 mg disintegrating 0.5 mg PO DAILY PRN Anxiety 11/12/23 11/12/23 History tablet baclofen 10 mg tablet 10 mg PO BID PRN Muscle Pain 11/12/23 11/12/23 History citalopram 20 mg tablet 20 mg PO QAM 11/12/23 11/12/23 History levothyroxine 137 mcg capsule 137 mcg PO DAILYBB 11/12/23 11/12/23 History tramadol 50 mg tablet 50 mg PO Q6 PRN Pain 11/12/23 11/12/23 History Patient History Medical History Arthritis "IBD ARTHRITIS" Ulcerative colitis Hypothyroidism Post traumatic stress disorder Anxiety History of COVID-19 05/26/22 VIA HOME TEST Sleep apnea CPAP Surgical History History of colonoscopy History of laparoscopy [place] teeth removed Family History Other No family history of adverse response to anesthesia Social History Smoking Status: Never smoker Second Hand Exposure: Yes ( A CHILD); Hx Alcohol Use: Yes Alcohol type: hard liquor Preferred Language: Spanish Communication Ability: Effective Direct Mail Clerk Required: No Beliefs That Will Affect Care: None Current Living Situation: Spouse Feels Safe at Home: Yes Assistive Devices: CPAP Review of Systems Review of Systems: All systems reviewed & are unremarkable except as noted in HPI & below Physical Exam Constitutional: well developed and + morbidly obese; no acute distress Eyes: + anicteric sclerae; no corneal abnormal ity ENMT: Mouth: no oral mucosal abnormality and oral mucous membranes not dry Neck: normal visual inspection, trachea midline and + thick neck Respiratory: normal respiratory effort Auscultation: lungs clear to auscultation bilaterally Cardiovascular: Rate/Rhythm: regular rate Heart Sounds: normal S1 and normal S2 Extremities: + edema Musculoskeletal: Extremities: no cyanosis and no clubbing osteoarthritic changes in the fingers, no synovitis or joint effusions. Skin: normal turgor; no rashes Neurologic: Motor/Sensory: no tremor and no asterixis Psychiatric: Orientation: alert and oriented x 3 Results & Data Vital Signs (Past 12 Hours) Vital Signs Pulse Pulse Resp BP BP Pulse Ox O2 Del Method 11/13/23 07:43 79 11/13/23 05:30 84 20 161/87 H 91 11/13/23 05:00 82 16 167/90 H 92 11/13/23 04:30 86 20 165/90 H 98 11/13/23 03:30 84 16 169/82 H 98 11/13/23 03:00 85 16 170/99 H 94 11/13/23 02:30 90 26 H 185/108 H 95 11/13/23 02:00 86 17 172/87 H 97 11/13/23 01:30 86 18 184/95 H 97 11/13/23 01:18 87 191/134 H 11/13/23 01:00 85 15 186/113 H 97 BiPAP 11/13/23 00:42 97 BiPAP 11/13/23 00:30 87 18 191/134 H 97 11/13/23 00:25 85 15 191/112 H 97 11/13/23 00:21 119 H 30 H 92 11/13/23 00:07 115 H 230/130 H 11/13/23 00:00 102 H 21 230/130 H 93 11/12/23 23:50 122 H 25 H 253/140 H 92 03/07/24 22:06 90 18 206/120 H 93 Room Air 11/12/23 22:00 85 25 H 206/120 H 92 O2 Flow Rate 11/13/23 07:43 11/13/23 05:30 11/13/23 05:00 11/13/23 04:30 11/13/23 03:30 11/13/23 03:00 11/13/23 02:30 11/13/23 02:00 11/13/23 01:30 11/13/23 01:18 11/13/23 01:00 11/13/23 00:42 11/13/23 00:30 11/13/23 00:25 11/13/23 00:21 4 11/13/23 00:07 11/13/23 00:00 11/12/23 23:50 11/12/23 22:06 11/12/23 22:00 Laboratory Results Laboratory Results - last 24 hr 11/12/23 11/12/23 11/13/23 16:04 17:05 03:58 WBC 5.79 5.96 RBC 3.55 L 3.19 L Hgb 11.8 L 10.6 L Hct 35.7 L 31.6 L MCV 100.6 H 99.1 MCH 33.2 33.2 MCHC 33.1 33.5 RDW Std Deviation 48.6 H 48.0 H RDW Coeff of Yobany 13.3 13.3 Plt Count 122 L 101 L MPV 11.1 11.2 Immature Gran % (Auto) 0.3 0.5 Neut % (Auto) 48.5 66.1 Lymph % (Auto) 33.3 18.0 Butts % (Auto) 15.4 13.9 Eos % (Auto) 2.2 1.0 Baso % (Auto) 0.3 0.5 Neut # (Auto) 2.80 3.94 Lymph # (Auto) 1.93 1.07 L Butts # (Auto) 0.89 H 0.83 H Eos # (Auto) 0.13 0.06 Baso # (Auto) 0.02 0.03 Immature Gran # (Auto) 0.02 0.03 PT 11.6 12.1 H INR 1.1 1.1 APTT 28 PTT Ratio 1.0 Sodium 138 140 Potassium 4.0 4.4 Chloride 105 109 H Carbon Dioxide 25 23 Anion Gap 8 8 BUN 58 H 53 H Creatinine 2.59 H 2.53 H Est Cr Clr Drug Dosing 31.9 32.7 Est GFR ( Amer) 22.3 22.9 Est GFR (Non-Af Amer) 19.2 19.8 BUN/Creatinine Ratio 22.4 H 20.9 H Glucose 93 126 H Calcium 9.4 8.7 Magnesium 1.9 Total Bilirubin 0.6 0.5 AST 60 H 46 H ALT 53 H 44 Alkaline Phosphatase 71 59 Troponin I High Sens 42.0 H 40.2 H Total Protein 8.4 H 7.4 Albumin 4.5 3.9 Globulin 3.9 3.5 Albumin/Globulin Ratio 1.2 1.1 Lipase 33 Folate 6.23 Urine Color Yellow Urine Appearance Clear Urine pH 5.5 Ur Specific [place] 1.010 Urine Protein 2+ H Urine Glucose (UA) Negative Urine Ketones Negative Urine Blood 3+ H Urine Nitrite Negative Urine Bilirubin Negative Urine Urobilinogen Negative Ur Leukocyte Esterase Negative Urine WBC (Auto) 1-5 Urine RBC (Auto) >30 H U Hyaline Cast (Auto) 1-5 U Epithel Cells (Auto) 5-10 H Urine Bacteria (Auto) Negative Ur Random Creatinine 36.3 U Random Total Protein 109.8 H Protein/Creatinin Ratio 3.[address] SCAN OF THE ABDOMEN AND PELVIS WITHOUT IV CONTRAST COMPARISON STUDY: Abdominal CT dated 03/21/2022. FINDINGS: Lung bases: The heart is normal in size and without pericardial effusion. The lung bases are clear noting dependent atelectasis. Liver: The unenhanced liver is enlarged, measuring 24 cm in length. The liver is heterogeneous and cirrhotic in morphology. There is hypertrophy of the left lobe and nodularity of the surface contour. There is no intrahepatic biliary ductal dilatation. Gallbladder: Unremarkable. Spleen: The spleen is enlarged measuring 14.8 cm in length. Pancreas: The unenhanced pancreas is moderately atrophic and grossly unre markable. Adrenal glands: Unremarkable. Kidneys: The unenhanced kidneys demonstrate mild cortical atrophy and are without hydronephrosis. No renal calculi are identified and there is no ureteral stone. There is no evidence of contour deforming renal mass lesion. Abdominal vasculature: The abdominal aorta is normal in course and caliber noting moderate to advanced atherosclerotic calcification. Bowel: There is mild colonic fecal retention. No bowel obstruction is seen. The appendix is well-visualized and normal. Peritoneum: There is no intraperitoneal free air or abdominal ascites. There is a fat-containing umbilical hernia. Lymphadenopathy: None. Pelvic viscera: The bladder, uterus, and adnexa are normal as visualized. Skeletal structures: The skeletal structures are osteopenic. There is mild lumbosacral spondylosis. No lytic or blastic lesions are seen. 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 IMPRESSION: 1. No acute infectious or inflammatory findings are identified in the abdomen or pelvis. 2. The liver is enlarged, heterogeneous, and cirrhotic in morphology. 3. Splenomegaly. 4. 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 SINGLE VIEW CHEST FINDINGS: An AP, portable, upright chest radiograph is obtained. No prior studies are available for comparison at the time of dictation. The cardiomediastinal silhouette is unremarkable. There is mild elevation of the right hemidiaphragm. The lungs and pleural spaces are clear noting mild bibasilar atelectasis. No pneumothorax is seen. The skeletal structures are osteopenic. The bony thorax is grossly intact. Arthritic change is noted in the shoulders. IMPRESSION: No active disease in the chest. PG Care Time/CCT Total # of Minutes Spent Total Time Spent with Patient: Total time spent is greater than 50% in coordination of care (as documented) at patient's floor/unit and/or counseling patient: Coding Level of Care Code 17129 IN/OBS CONSULT LVL 5,80M Diagnoses ELVI (acute kidney injury) N17.9 Microscopic hematuria R31.29 HTN (hypertension) I10 Cirrhosis K74.60 Avascular necrosis of bones of both hips M87.051; M87.052
[2023-11-13] MEDS: amLODIPine BESYLATE 5 MG TAB PO SCH ×2 (10:27→17:49)
--- NOTE | 2023-11-13 11:00 | Electrocardiogram Report ---
Test Reason : Blood Pressure : / mmHG Vent. Rate : 096 BPM Atrial Rate : 096 BPM P-R Int : 174 ms QRS Dur : 086 ms QT Int : 376 ms P-R-T Axes : 065 -11 080 degrees QTc Int : 475 ms Poor data quality, interpretation may be adversely affected Normal sinus rhythm Minor Nonspecific ST abnormality Anterolateral leads Abnormal ECG No previous ECGs available Confirmed by Serjio Ricketts ([id number]) on 11/13/2023 11:00:00 AM Referred By: Denia Calderon Confirmed By:Serjio Ricketts
[2023-11-13] MEDS: ALPRAZolam 0.5 MG TABLET PO PRN (12:54)
[2023-11-13] MEDS: ACETAMINOPHEN 325 MG TAB PO PRN (12:54)
--- NOTE | 2023-11-13 13:02 | Hospitalist Progress Note ---
Date of Service November 13, 2023 Assessment & Plan (1) ELVI (acute kidney injury): Plan: No obstruction seen on CT scan. Continue IV fluids. Monitor intake and output and serial labs. Random urine sodium and random urine creatinine are pending to calculate fractional sodium excretion. Nephrology consultation requested. (2) HTN (hypertension): Plan: Amlodipine added for blood pressure control. Cardiac echo report pending. (3) Cirrhosis: Plan: Noted on CT of the abd/pelvis along with splenomegaly . She appears to have HESTER. She is not a drinker. (4) Thrombocytopenia: Plan: Mild. No need for intervention at this time (5) Elevated troponin: Plan: Mild on admission. No acute EKG changes. No chest pain. Cardiac echo pending to evaluate for regional wall motion abnormalities. (6) Microscopic hematuria: Plan: No gross hematuria. Urine culture pending. No symptoms of UTI however. Good blood pressure control indicated. (7) Avascular necrosis of bones of both hips: Plan: Incidental finding on CT of the abd/pelvis. Outpatient follow-up (8) Anxiety: Plan: Continue xanax, citalopram. Remeron is on hold (9) Hypothyroidism: Plan: Stable. Conitnue levothyroxine Plan Hopeful discharge to home soon Admission and Anticipated Discharge Date Admission Date: November 12, 2023 Subjective Alert and oriented. No distress. She does have anxiety. Creatinine holding steady at 2.5. She remains on IV fluids. Amlodipine added for blood pressure control. Nephrology consultation pending. Abdomen CT scan negative for any evidence of obstruction. Cardiac echo report is pending Review of Systems 2 Review of Systems: Constitutional-no fever or chills ENT-no blurred vision, no double vision, no epistaxis, no sore throat Respiratory-no cough, no wheezing, no shortness of breath Cardiac-no palpitations, no chest pain, no syncope GI-no nausea, vomiting, diarrhea, melena, hematochezia -no urinary retention, no urinary incontinence, no dysuria, no hematuria Musculoskeletal-no joint pain, no muscle tenderness Skin-no bruising, no rashes, no pruritus Neuro-no isolated weakness, no paresthesia, no weakness Psych-no depression. She does have chronic anxiety Physical Exam 2 Physical Exam: General-alert and oriented x3, no fever, no chills HEENT-head atraumatic and normocephalic, pupils equal and reactive to light, extraocular muscles intact Neck-no lymphadenopathy or thyromegaly, trachea midline Chest-clear to auscultation. No rales, wheezing or rhonchi Cardiac-regular rate and rhythm, normal S1 and S2 Abdomen-normal bowel sounds, nontender, no hepatosplenomegaly Extremities-no cyanosis, clubbing, or edema Neuro-cranial nerves II through XII intact, motor and sensory function within normal limits, strength symmetrical, no focal deficits Psych-normal affect, normal mood. Anxious however Results & Data Results & Data Vital Signs (Past 12 Hours) Vital Signs Pulse Resp BP Pulse Ox O2 Del Method O2 Flow Rate 11/13/23 11:03 84 18 203/115 H 98 Nasal Cannula 4 11/13/23 09:00 91 H 18 94 11/13/23 08:30 88 18 94 11/13/23 08:30 181/132 H 11/13/23 08:00 94 H 15 96 11/13/23 08:00 201/109 H 11/13/23 07:43 79 11/13/23 07:30 175/88 H 11/13/23 07:30 84 16 98 11/13/23 07:00 81 15 98 11/13/23 07:00 180/92 H 11/13/23 06:43 95 H 22 98 11/13/23 06:43 204/104 H 11/13/23 06:00 82 17 99 11/13/23 06:00 175/99 H 11/13/23 05:30 84 20 161/87 H 91 11/13/23 05:00 82 16 167/90 H 92 11/13/23 04:30 86 20 165/90 H 98 11/13/23 03:30 84 16 169/82 H 98 11/13/23 03:00 85 16 170/99 H 94 11/13/23 02:30 90 26 H 185/108 H 95 11/13/23 02:00 86 17 172/87 H 97 11/13/23 01:30 86 18 184/95 H 97 11/13/23 01:18 87 191/134 H 11/13/23 01:00 85 15 186/113 H 97 BiPAP Laboratory Results 11/13/23 03:58 PG Care Time/CCT Total # of Minutes Spent Total Time Spent with Patient: Total time spent is greater than 50% in coordination of care (as documented) at patient's floor/unit and/or counseling patient: Coding Level of Care Code 46800 SUB INP/OBS CARE 3/50MIN Diagnoses ELVI (acute kidney injury) N17.9 HTN (hypertension) I10 Cirrhosis K74.60 Thrombocytopenia D69.6 Elevated troponin R79.89 Microscopic hematuria R31.29 Avascular necrosis of bones of both hips M87.051; M87.052 Anxiety F41.9 Hypothyroidism E03.9
[2023-11-13 13:03] LABS: Albumin Globulin Ratio 1.1 (0.9-2); Albumin Level 4.1 gm/dl (3.4-5.0); Bilirubin,Total 0.6 mg/dl (0.2-1.0); Creatinine Clr Calc Pharmacy 37.9 ml/min; Est GFR (African American) 27.4 ml/min; Est GFR (Non-African American) 23.7 ml/min; Globulin 3.7 gm/dl (2.5-4.0); Phosphorus 3.2 mg/dl (2.5-4.9); Potassium 4.3 mmol/L (3.5-5.1); Total Protein 7.8 gm/dl (6.0-8.3)
[2023-11-13 14:45] LABS: Creatinine Urine Random 61.3 mg/dl
--- NOTE | 2023-11-13 17:50 | Ultrasound Report ---
US duplex renal artery CLINICAL HISTORY: gio, accelerated hypertension TECHNIQUE: Real-time grayscale and color and spectral Doppler ultrasound imaging of the kidneys was p erformed. Comparison: None available at the time of this dictation. FINDINGS: Right kidney measures 12.9 cm. Left kidney measures 12.7 cm. RIGHT: The right kidney is normal in size, contour, cortical thickness, and echogenicity. No hydronephrosis is identified. No renal lesion is identified. Spectral analysis: Intrarenal resistive indices measure up to 0.63. Waveforms are normal in appearance.. Renal artery ve locities and waveforms are normal. Renal vein patent. LEFT: The left kidney is normal in size, contour, cortical thickness and echogenicity. No hydronephrosis i s identified. No renal lesion is identified. Spectral analysis: Intrarenal resistive indices measure up to 0.66. Waveforms are normal in appearance. Renal artery mary ellen ocities and waveforms are normal. Renal vein patent. Abdominal aorta: Patent. Peak systolic velocity 138 cm/s. Reference ranges: Normal main renal artery peak systolic velocity less than 180 cm/s. Ratio of renal artery PSV to aort ic PSV less than 3.5 equates to normal or less than 60% stenosis. Only one of the two criteria listed needs to be met for diagnosis. Arcuate resistive indices about 0.8 are elevated. IMPRESSION: No evidence of renal artery stenosis. ACT 112: Negative or not required by law. Electronically signed by: Alonso Mireles M.D. 11/13/2023 5:49 PM
[2023-11-13] MEDS: MONTELUKAST SODIUM 10 MG TABLET PO ONE (20:01)
[2023-11-14 06:09] LABS: Albumin Globulin Ratio 1.1 (0.9-2); Albumin Level 3.7 gm/dl (3.4-5.0); BUN Creatinine Ratio 19.2 (10-20); Bilirubin,Total 0.7 mg/dl (0.2-1.0); Calcium 8.7 mg/dl (8.6-10.3); Creatinine Clr Calc Pharmacy 34.3 ml/min; Est GFR (African American) 24.4 ml/min; Est GFR (Non-African American) 21.1 ml/min; Globulin 3.5 gm/dl (2.5-4.0); Magnesium 1.9 mg/dl (1.7-2.4); Potassium 3.9 mmol/L (3.5-5.1); Total Protein 7.2 gm/dl (6.0-8.3)
[2023-11-14 06:16] LABS: INR 1.1 (0.9-1.1); Prothrombin Time 12.4 Seconds (9.0-12.0)
[2023-11-14 06:28] LABS: Basophils # (auto) 0.02 K/uL (0.00-0.20); Basophils % (auto) 0.4 %; Eosinophils # (auto) 0.12 K/uL (0.00-0.50); Eosinophils % (auto) 2.2 %; Hematocrit (blood only) 30.8 % (37.0-47.0); Hemoglobin 10.1 g/dl (12.0-16.0); Immature Granulocytes # (auto) 0.02 K/uL (0.01-0.20); Immature Granulocytes % (auto) 0.4 %; Lymphocytes # (auto) 1.08 K/uL (1.20-3.40); Lymphocytes % (auto) 19.9 %; Mean Corpuscular Hemoglobin 32.8 pg (25.0-34.0); Mean Corpuscular Hgb Conc 32.8 g/dL (32.0-36.0); Mean Platelet Volume 11.1 fL (9.4-12.4); Monocytes # (auto) 0.92 K/uL (0.11-0.59); Monocytes % (auto) 16.9 %; Neutrophils # (auto) 3.27 K/uL (1.40-6.50); Neutrophils % (auto) 60.2 %; Platelet Count 96 K/uL (130-400); Platelet Estimate Decreased (Normal); Polychromasia 1+; RDW Coefficient of Variation 13.5 % (11.5-14.5); RDW Standard Deviation 49.7 fL (36.4-46.3); Red Blood Count 3.08 M/uL (4.20-5.40); White Blood Count 5.43 K/ul (4.8-10.8)
--- NOTE | 2023-11-14 08:47 | Nephrology Progress Note ---
Date of Service November 14, 2023 Assessment & Plan (1) ELVI (acute kidney injury): Plan: * Time frame for kidney injury is unknown. Last documented Cr value prior to hospitalization was 1.0 04/29 * Clinically suspect ELVI. 11/13/23 renal US revealed R 12.9 cm, L 12.7 cm w/ normal cortical thickness bilaterally. There was no cyst/stone/mass reported. Doppler was negative for TOÑO * Urine microscopy reveals hematuria, no casts. UPCR 3.0 * Clinical presentation concerning for Humira induced autoimmune disease (ANCA, lupus like disease) or AIN related to Entyvio - Clinicopathologic Spectrum of Renal Lesions Following [id number] Inhibitor Threapy Kidney 360 p. 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 She desires medical therapy. If renal function worsens (Cr > 2.8), then consider transfer to tertiary care facility for VIR directed kidney biopsy (2) Microscopic hematuria: Plan: * Non-smoker. No history of gross hematuria. CT without lesions. No casts reported on microscopy. Suspect glomerular source. Hold cystoscopy for now (3) HTN (hypertension): Plan: * Renal duplex negative for TOÑO * Continue Amlodipine * Primary service has added Carvedilol * Avoid PATRICIA/ARB due to ELVI (4) Cirrhosis: Plan: * Urine sodium 81 * Presentation atypical for HRS --> non-oliguric and hypertensive. * Cirrhotic based on imaging. Known history of HESTER. No liver biopsy. (5) Avascular necrosis of bones of both hips: Admission and Anticipated Discharge Date Admission Date: November 12, 2023 Subjective Mrs. Trevizo was evaluated in her hospital room this morning. Her was present at bedside. Patient reports last outpatient lab 04/29 with Cr 1.0. She denies NSAID use or exposure to known nephrotoxic agents. She has been on q 2 week Humira and q 2 month Entyvio for the last 5 years. She expressed concern that Humira is becoming less effective. She has been experiencing increased joint pain. Currently Mrs. Trevizo denies fever, alopecia, oral ulceration, malar rash, angina, dyspnea, GI blood loss, gross hematuria or uremic symptoms. Review of Systems Constitutional: no fever Eyes: no problem reported Ear, Nose, Mouth, Throat: no problem reported Respiratory: no cough, no dyspnea and no hemoptysis Cardiovascular: no chest pain and no edema Gastrointestinal: no abdominal pain, no nausea, no vomiting and no diarrhea/loose stools Genitourinary: + flank pain; no dysuria and no hematuri a Musculoskeletal: + back pain and + joint pain; no myalgia and no body aches Integumentary: no rash and no lesions Neurologic: + headache(s) Physical Exam Constitutional: not in distress Eyes: PERRL, conjunctivae normal, anicteric sclerae ENMT: external ear and nose normal, oropharynx normal Neck: trachea midline, no thyromegaly Respiratory: normal respiratory effort, lungs clear to auscultation Cardiovascular: RRR, no murmur, no edema Gastrointestinal (Abdomen): normal bowel sounds, soft, nontender, no hepatosplenomegaly Skin: no rashes, warm and dry Neurologic: Speech / Cognition: normal speech and normal cognition Psychiatric: Orientation: alert and oriented x 3 Affect: euthymic affect Results & Data Vital Signs (Past 12 Hours) Vital Signs Temp Pulse Pulse Resp BP BP Pulse Ox 11/14/23 08:00 36.6 C 102 H 20 171/82 H 92 11/14/23 07:33 94 H 11/14/23 04:50 175/83 H 11/14/23 04:21 36.7 C 97 H 18 197/101 H 96 11/14/23 03:35 11/14/23 03:18 22 11/13/23 23:14 23 94 11/13/23 23:02 37.7 C H 98 H 20 155/76 H 94 11/13/23 21:57 104 H O2 Del Method O2 Flow Rate 11/14/23 08:00 Room Air 11/14/23 07:33 11/14/23 04:50 11/14/23 04:21 Nasal Cannula, CPAP 2 11/14/23 03:35 Nasal Cannula 2 11/14/23 03:18 4 11/13/23 23:14 4 11/13/23 23:02 CPAP 2 11/13/23 21:57 Laboratory Results Laboratory Results - last 24 hr 11/13/23 11/13/23 11/14/23 12:15 14:12 05:37 WBC 5.43 RBC 3.08 L Hgb 10.1 L Hct 30.8 L MCV 100.0 MCH 32.8 MCHC 32.8 RDW Std Deviation 49.7 H RDW Coeff of Yobany 13.5 Plt Count 96 L MPV 11.1 Immature Gran % (Auto) 0.4 Neut % (Auto) 60.2 Lymph % (Auto) 19.9 [place] % (Auto) 16.9 Eos % (Auto) 2.2 Baso % (Auto) 0.4 Neut # (Auto) 3.27 Lymph # (Auto) 1.08 L [place] # (Auto) 0.92 H Eos # (Auto) 0.12 Baso # (Auto) 0.02 Immature Gran # (Auto) 0.02 Platelet Estimate Decreased L Polychromasia 1+ ESR 63 H PT 12.4 H INR 1.1 Sodium 140 139 Potassium 4.3 3.9 Chloride 109 H 108 H Carbon Dioxide 24 23 Anion Gap 7 8 BUN 48 H 46 H Creatinine 2.18 H D 2.40 H Est Cr Clr Drug Dosing 37.9 34.3 Est GFR ( Amer) 27.4 24.4 Est GFR (Non-Af Amer) 23.7 21.1 BUN/Creatinine Ratio 22.0 H 19.2 Glucose 109 H 128 H Calcium 9.0 8.7 Phosphorus 3.2 Magnesium 1.9 Total Bilirubin 0.6 0.7 AST 41 H 30 ALT 43 34 Alkaline Phosphatase 64 63 Total Creatine Kinase 166 Total Protein 7.8 7.2 Total Protein (PEP) Pending Albumin 4.1 3.7 Albumin (PEP) Pending Globulin 3.7 3.5 Albumin/Globulin Ratio 1.1 1.1 [id number] Pending [id number] Pending Pcsa-4-Sasjvhky Pending Varj-7-Oiedhfzu Pending Gamma Globulins Pending Monoclonal Peak 3 Pending Ser Monoclonl Protein Pending Ser Monoclonal Prot 2 Pending PEP Interpretation Pending Ur Random Creatinine 61.3 Ur Random Sodium 81 Serum Immunofixation Pending BRICE Screen Pending Anti-Proteinase 3 Pending Anti-Myeloperoxidase Pending ANCA Pending Glomerular Base Memb Ab Pending Complement C3 Pending Complement C4 Pending Tot Complement (CH50) Pending Hep Bs Antigen Pending Hep Bs Ag Confirmation Pending Hep Bs Antibody, Quant Pending Hep B Core IgM Ab Pending Hepatitis C Ab (EIA) Pending Phospholip A2 Rec IFA Pending Phospholip A2 Rec ADEN Pending PG Care Time/CCT Total # of Minutes Spent Total Time Spent with Patient: Total time spent is greater than 50% in coordination of care (as documented) at patient's floor/unit and/or counseling patient: Coding Level of Care Code 01660 SUB INP/OBS CARE 3/50MIN Diagnoses ELVI (acute kidney injury) N17.9 Microscopic hematuria R31.29 HTN (hypertension) I10 Cirrhosis K74.60 Avascular necrosis of bones of both hips M87.051; M87.052
[2023-11-14] MEDS: carvediloL 3.125 MG TAB PO SCH (09:26)
[2023-11-14] MEDS: PANTOprazole 40 MG TAB PO SCH (11:38)
[2023-11-14] MEDS: methylPREDNISolone 500 MG in DEXTROSE 5% 250 ML IV SCH (11:41)
[2023-11-14] MEDS: SULFA/TRIMETH 400/80MG TAB PO SCH (12:30)
--- NOTE | 2023-11-14 12:37 | Hospitalist Progress Note ---
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 Creatinine has not changed much despite adequate fluid administration. Fractional sodium excretion 2.3. Sed rate is elevated at 63. She is now on parenteral steroid therapy per nephrology. No obstruction seen on CT scan. Monitor intake and output and serial labs. Appreciate nephrology consultation and recommendations. She may yet require renal biopsy which can be done at a later date as an outpatient (2) HTN (hypertension): Plan: Coreg has been added to amlodipine for heart rate and blood pressure control. (3) Cirrhosis: Plan: Noted on CT of the abd/pelvis along with splenomegaly . She appears to have HESTER. She is not a drinker. (4) Thrombocytopenia: Plan: Mild. No need for intervention at this time (5) Elevated troponin: Plan: Mild on admission. No acute EKG changes. No chest pain. (6) Microscopic hematuria: Plan: No gross hematuria. No apparent infectious process. 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 Outpatient follow-up (8) Anxiety: Plan: Continue xanax, citalopram. Remeron has been restarted (9) Hypothyroidism: Plan: Stable. Conitnue levothyroxine Plan Hopeful discharge to home soon Admission and Anticipated Discharge Date Admission Date: November 12, 2023 Subjective Alert and oriented. Case discussed with nephrology. She is now on glucocorticoid therapy. Multiple labs remain pending regarding possible autoimmune renal issues. Creatinine stable at 2.4. IV fluids have been discontinued. Coreg added to amlodipine for better heart rate and blood pressure control. Fractional sodium excretion is 2.3. She may yet need a renal biopsy which can be done as an outpatient at a later date Review of Systems 2 Review of Systems: Constitutional-no fever or chills ENT-no blurred vision, no double vision, no epistaxis, no sore throat Respiratory-no cough, no wheezing, no shortness of breath Cardiac-no palpitations, no chest pain, no syncope GI-no nausea, vomiting, diarrhea, melena, hematochezia -no urinary retention, no urinary incontinence, no dysuria, no hematuria Musculoskeletal-no joint pain, no muscle tenderness Skin-no bruising, no rashes, no pruritus Neuro-no isolated weakness, no paresthesia, no weakness Psych-no depression. She does have chronic anxiety Physical Exam 2 Physical Exam: General-alert and oriented x3, no fever, no chills HEENT-head atraumatic and normocephalic, pupils equal and reactive to light, extraocular muscles intact Neck-no lymphadenopathy or thyromegaly, trachea midline Chest-clear to auscultation. No rales, wheezing or rhonchi Cardiac-regular rate and rhythm, normal S1 and S2 Abdomen-normal bowel sounds, nontender, no hepatosplenomegaly Extremities-no cyanosis, clubbing, or edema Neuro-cranial nerves II through XII intact, motor and sensory function within normal limits, strength symmetrical, no focal deficits Psych-normal affect, normal mood. Anxious however Results & Data Results & Data Vital Signs (Past 12 Hours) Vital Signs Temp Pulse Pulse Resp BP BP Pulse Ox 11/14/23 10:38 92 H 180/101 H 177/103 H 94 11/14/23 08:00 36.6 C 102 H 20 171/82 H 92 11/14/23 07:33 94 H 11/14/23 04:50 175/83 H 11/14/23 04:21 36.7 C 97 H 18 197/101 H 96 11/14/23 03:35 11/14/23 03:18 22 O2 Del Method O2 Flow Rate 11/14/23 10:38 Room Air 11/14/23 08:00 Room Air 11/14/23 07:33 11/14/23 04:50 11/14/23 04:21 Nasal Cannula, CPAP 2 11/14/23 03:35 Nasal Cannula 2 11/14/23 03:18 4 Laboratory Results 11/14/23 05:37 11/14/23 05:37 PG Care Time/CCT Total # of Minutes Spent Total Time Spent with Patient: Total time spent is greater than 50% in coordination of care (as documented) at patient's floor/unit and/or counseling patient: Coding Level of Care Code 07640 SUB INP/OBS CARE 3/50MIN Diagnoses ELVI (acute kidney injury) N17.9 HTN (hypertension) I10 Cirrhosis K74.60 Thrombocytopenia D69.6 Elevated troponin R79.89 Microscopic hematuria R31.29 Avascular necrosis of bones of both hips M87.051; M87.052 Anxiety F41.9 Hypothyroidism E03.9
[2023-11-14 15:38] LABS: Total Protein 24 Hour Urine 3114.3 mg/24 Hr (0-149.1); Urine Total Protein 148.3 mg/dl
[2023-11-14] MEDS: traMADol HCL 50 MG TABLET PO PRN (20:45)
[2023-11-14] MEDS: MIRTAZAPINE TAB 15 MG TAB PO SCH (20:47)
[2023-11-14] MEDS: MONTELUKAST SODIUM 10 MG TABLET PO SCH (20:47)
[2023-11-15 06:26] LABS: Basophils # (auto) 0.01 K/uL (0.00-0.20); Basophils % (auto) 0.2 %; Eosinophils # (auto) 0.01 K/uL (0.00-0.50); Eosinophils % (auto) 0.2 %; Hematocrit (blood only) 30.4 % (37.0-47.0); Hemoglobin 10.3 g/dl (12.0-16.0); Immature Granulocytes # (auto) 0.03 K/uL (0.01-0.20); Immature Granulocytes % (auto) 0.6 %; Lymphocytes % (auto) 16.6 %; Mean Corpuscular Hemoglobin 33.6 pg (25.0-34.0); Mean Corpuscular Hgb Conc 33.9 g/dL (32.0-36.0); Mean Platelet Volume 11.4 fL (9.4-12.4); Monocytes # (auto) 0.21 K/uL (0.11-0.59); Monocytes % (auto) 4.4 %; Neutrophils # (auto) 3.75 K/uL (1.40-6.50); Platelet Count 99 K/uL (130-400); RDW Coefficient of Variation 13.2 % (11.5-14.5); RDW Standard Deviation 47.4 fL (36.4-46.3); Red Blood Count 3.07 M/uL (4.20-5.40); White Blood Count 4.81 K/ul (4.8-10.8)
[2023-11-15 06:28] LABS: Albumin Globulin Ratio 1.1 (0.9-2); BUN Creatinine Ratio 19.3 (10-20); Bilirubin,Total 0.5 mg/dl (0.2-1.0); Calcium 8.9 mg/dl (8.6-10.3); Creatinine Clr Calc Pharmacy 29.1 ml/min; Est GFR (African American) 20.3 ml/min; Est GFR (Non-African American) 17.5 ml/min; Globulin 3.5 gm/dl (2.5-4.0); Potassium 4.2 mmol/L (3.5-5.1); Total Protein 7.5 gm/dl (6.0-8.3)
[2023-11-15 06:36] LABS: Total Protein Urine Random 125.7 mg/dl (0-11.9)
[2023-11-15 06:42] LABS: Creatinine Urine Random 132.9 mg/dl; Protein Creatinine Ratio Urine 0.9 (0-0.2)
[2023-11-15 06:47] LABS: Appearance Urine Cloudy (Clear); Bilirubin Urine Negative (Negative); Blood Urine 3+ (Negative); Color Urine Yellow; Glucose Urine UA Negative (Negative); Ketones Urine Negative (Negative); Leukocyte Esterase Urine Negative (Negative); Nitrite Urine Negative (Negative); Protein Urine 2+ (Negative); Specific Gravity Urine 1.016 (1.000-1.030); Urobilinogen Urine Negative (Negative)
[2023-11-15 06:48] LABS: Bacteria Urine Automated 1+ (Negative)
--- NOTE | 2023-11-15 09:08 | Nephrology Progress Note ---
Date of Service November 15, 2023 Assessment & Plan (1) ELVI (acute kidney injury): Plan: * Time frame for kidney injury is unknown. Last documented Cr value prior to hospitalization was 1.0 04/29 * Clinically suspect ELVI. 11/13/23 renal US revealed R 12.9 cm, L 12.7 cm w/ normal cortical thickness bilaterally. There was no cyst/stone/mass reported. Doppler was negative for TOÑO * 11/12/23 urine microscopy revealed > 30 rbc/hpf, no casts. UPCR 3.0. 11/13/23 urine microscopy now show 10-30 rbc/hpf, UPCR 0.9? * Clinical presentation concerning for Humira induced autoimmune disease (ANCA, lupus like disease) or AIN related to Entyvio - Clinicopathologic Spectrum of Renal Lesions Following [id number]-mxbht Inhibitor Threapy Kidney 360 p. 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 Will then convert to oral Prednisone * Continue PPI and Bactrim therapy * Await results of ESR, BRICE, ANCA, C3/C4, anti-BM, screening for viral hepatitis B and C, and PLA2r, 24 hour urine protein * Discussed indications/benefits/risks/alternatives to nikolai kidney biopsy w/ patient and . Mrs. Trevizo desires trial of steroid therapy. If renal function worsens (sustained Cr > 2.8), then consider transfer to tertiary care facility for VIR directed kidney biopsy (2) Microscopic hematuria: Plan: * Non-smoker. No history of gross hematuria. CT without lesions. No casts reported on microscopy. Suspect glomerular source. Hold cystoscopy for now (3) HTN (hypertension): Plan: * Renal duplex negative for TOÑO * Continue Amlodipine, Carvedilol * Avoid PATRICIA/ARB due to ELVI (4) Cirrhosis: Plan: * 11/14/23 urine sodium 81 * Presentation atypical for HRS --> non-oliguric and hypertensive. * Cirrhotic based on imaging. Known history of HESTER. No liver biopsy. Admission and Anticipated Discharge Date Admission Date: November 12, 2023 Subjective Mrs. Trevizo was evaluated in her hospital room this morning. Her was present at bedside. Mrs. Trevizo reports that she is tolerating steroid therapy without side effect. Her NOROTN has resolved Review of Systems Constitutional: no fever Eyes: no problem reported Ear, Nose, Mouth, Throat: no problem reported Respiratory: no cough, no dyspnea and no hemoptysis Cardiovascular: no chest pain and no edema Gastrointestinal: no abdominal pain, no nausea, no vomiting and no diarrhea/loose stools Genitourinary: + flank pain; no dysuria and no hematuri a Musculoskeletal: + back pain and + joint pain; no myalgia and no body aches Integumentary: no rash and no lesions Neurologic: no headache(s) Physical Exam Constitutional: not in distress Eyes: PERRL, conjunctivae normal, anicteric sclerae ENMT: external ear and nose normal, oropharynx normal Neck: trachea midline, no thyromegaly Respiratory: normal respiratory effort, lungs clear to auscultation Cardiovascular: RRR, no murmur, no edema Gastrointestinal (Abdomen): normal bowel sounds, soft, nontender, no hepatosplenomegaly Skin: no rashes, warm and dry Neurologic: Speech / Cognition: normal speech and normal cognition Psychiatric: Orientation: alert and oriented x 3 Affect: euthymic affect Results & Data Vital Signs (Past 12 Hours) Vital Signs Temp Pulse Pulse Resp BP BP Pulse Ox 11/15/23 07:56 36.3 C L 88 18 143/72 H 98 11/15/23 07:05 103 H 11/15/23 04:31 94 H 16 94 11/15/23 03:28 83 18 142/66 H 97 11/14/23 22:47 93 H 18 165/78 H 94 11/14/23 22:32 92 H 30 H 92 11/14/23 22:28 91 H 11/14/23 21:57 101 H 25 H 96 11/14/23 21:32 O2 Del Method O2 Flow Rate 11/15/23 07:56 BiPAP 3 11/15/23 07:05 11/15/23 04:31 2 11/15/23 03:28 BiPAP 3 11/14/23 22:47 BiPAP 11/14/23 22:32 2 11/14/23 22:28 11/14/23 21:57 2 11/14/23 21:32 Room Air Laboratory Results Laboratory Results - last 24 hr 11/14/23 11/15/23 11/15/23 14:40 05:37 05:50 WBC 4.81 RBC 3.07 L Hgb 10.3 L Hct 30.4 L MCV 99.0 MCH 33.6 MCHC 33.9 RDW Std Deviation 47.4 H RDW Coeff of Yobany 13.2 Plt Count 99 L MPV 11.4 Immature Gran % (Auto) 0.6 Neut % (Auto) 78.0 Lymph % (Auto) 16.6 [place] % (Auto) 4.4 Eos % (Auto) 0.2 Baso % (Auto) 0.2 Neut # (Auto) 3.75 Lymph # (Auto) 0.80 L [place] # (Auto) 0.21 Eos # (Auto) 0.01 Baso # (Auto) 0.01 Immature Gran # (Auto) 0.03 Sodium 136 Potassium 4.2 Chloride 105 Carbon Dioxide 21 Anion Gap 10 BUN 54 H Creatinine 2.80 H D Est Cr Clr Drug Dosing 29.1 Est GFR ( Amer) 20.3 Est GFR (Non-Af Amer) 17.5 BUN/Creatinine Ratio 19.3 Glucose 167 H Calcium 8.9 Total Bilirubin 0.5 AST 25 ALT 34 Alkaline Phosphatase 63 Total Protein 7.5 Albumin 4.0 Globulin 3.5 Albumin/Globulin Ratio 1.1 Urine Color Yellow Urine Appearance Cloudy A Urine pH 5.0 Ur Specific [place] 1.016 Urine Protein 2+ H Urine Glucose (UA) Negative Urine Ketones Negative Urine Blood 3+ H Urine Nitrite Negative Urine Bilirubin Negative Urine Urobilinogen Negative Ur Leukocyte Esterase Negative Urine WBC (Auto) 1-5 Urine RBC (Auto) 10-30 H U Hyaline Cast (Auto) 1-5 U Epithel Cells (Auto) 5-10 H Urine Bacteria (Auto) 1+ H Urine Yeast Not Reportable Ur Random Creatinine 132.9 U Random Total Protein 125.7 H Urine Total Volume 2100 Ur Total Protein 24 Hr 3114.3 H Protein/Creatinin Ratio 0.9 H Urine Total Protein 148.3 PG Care Time/CCT Total # of Minutes Spent Total Time Spent with Patient: Total time spent is greater than 50% in coordination of care (as documented) at patient's floor/unit and/or counseling patient: Coding Level of Care Code 72099 SUB INP/OBS CARE 3/50MIN Diagnoses ELVI (acute kidney injury) N17.9 Microscopic hematuria R31.29 HTN (hypertension) I10 Cirrhosis K74.60
--- NOTE | 2023-11-15 10:43 | Hospitalist Progress Note ---
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 Creatinine did not respond to fluid challenge. Fractional sodium excretion 2.3. Sed rate is elevated at 63. She is now on parenteral steroid therapy per nephrology, day 2. No obstruction seen on CT scan. Monitor intake and output and serial labs. Appreciate nephrology consultation and recommendations. She may yet require renal biopsy which can be done at a later date as an outpatient (2) HTN (hypertension): Plan: Coreg has been added to amlodipine for heart rate and blood pressure control. Improved (3) Cirrhosis: Plan: Noted on CT of the abd/pelvis along with splenomegaly . She appears to have HESTER. She is not a drinker. (4) Thrombocytopenia: Plan: Mild. No need for intervention at this time (5) Elevated troponin: Plan: Mild on admission. No acute EKG changes. No chest pain. (6) Microscopic hematuria: Plan: No gross hematuria. No apparent infectious process. 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 Outpatient follow-up (8) Anxiety: Plan: Continue xanax, citalopram. Remeron has been restarted (9) Hypothyroidism: Plan: Stable. Conitnue levothyroxine Plan Hopeful discharge to home soon on oral prednisone Admission and Anticipated Discharge Date Admission Date: November 12, 2023 Subjective Alert and oriented. No distress. Nephrology entry noted. Blood pressure has improved to 143/72 and heart rate now 88, normal sinus rhythm. Renal arterial duplex is unremarkable. Her kidney failure appears to be immune mediated due to Humira. She is now on parenteral steroid therapy which will eventually be converted to oral prednisone at discharge. Creatinine 2.8 today, November 14. Yesterday, 2.4. Will follow. Review of Systems 2 Review of Systems: Constitutional-no fever or chills ENT-no blurred vision, no double vision, no epistaxis, no sore throat Respiratory-no cough, no wheezing, no shortness of breath Cardiac-no palpitations, no chest pain, no syncope GI-no nausea, vomiting, diarrhea, melena, hematochezia -no urinary retention, no urinary incontinence, no dysuria, no hematuria Musculoskeletal-no joint pain, no muscle tenderness Skin-no bruising, no rashes, no pruritus Neuro-no isolated weakness, no paresthesia, no weakness Psych-no depression. She does have chronic anxiety Physical Exam 2 Physical Exam: General-alert and oriented x3, no fever, no chills HEENT-head atraumatic and normocephalic, pupils equal and reactive to light, extraocular muscles intact Neck-no lymphadenopathy or thyromegaly, trachea midline Chest-clear to auscultation. No rales, wheezing or rhonchi Cardiac-regular rate and rhythm, normal S1 and S2 Abdomen-normal bowel sounds, nontender, no hepatosplenomegaly Extremities-no cyanosis, clubbing, or edema Neuro-cranial nerves II through XII intact, motor and sensory function within normal limits, strength symmetrical, no focal deficits Psych-normal affect, normal mood. Anxious however Results & Data Results & Data Vital Signs (Past 12 Hours) Vital Signs Temp Pulse Pulse Resp BP BP Pulse Ox 11/15/23 07:56 36.3 C L 88 18 143/72 H 98 11/15/23 07:05 103 H 11/15/23 04:31 94 H 16 94 11/15/23 03:28 83 18 142/66 H 97 11/14/23 22:47 93 H 18 165/78 H 94 11/14/23 22:32 92 H 30 H 92 11/14/23 22:28 91 H 11/14/23 21:57 101 H 25 H 96 O2 Del Method O2 Flow Rate 11/15/23 07:56 BiPAP 3 11/15/23 07:05 11/15/23 04:31 2 11/15/23 03:28 BiPAP 3 11/14/23 22:47 BiPAP 11/14/23 22:32 2 11/14/23 22:28 11/14/23 21:57 2 Laboratory Results 11/15/23 05:37 11/15/23 05:37 PG Care Time/CCT Total # of Minutes Spent Total Time Spent with Patient: Total time spent is greater than 50% in coordination of care (as documented) at patient's floor/unit and/or counseling patient: Coding Level of Care Code 22310 SUB INP/OBS CARE 3/50MIN Diagnoses ELVI (acute kidney injury) N17.9 HTN (hypertension) I10 Cirrhosis K74.60 Thrombocytopenia D69.6 Elevated troponin R79.89 Microscopic hematuria R31.29 Avascular necrosis of bones of both hips M87.051; M87.052 Anxiety F41.9 Hypothyroidism E03.9
[2023-11-16 07:21] LABS: Appearance Urine Clear (Clear); Bacteria Urine Automated Negative (Negative); Bilirubin Urine Negative (Negative); Blood Urine 2+ (Negative); Color Urine Yellow; Glucose Urine UA Negative (Negative); Ketones Urine Negative (Negative); Leukocyte Esterase Urine Negative (Negative); Nitrite Urine Negative (Negative); Protein Urine 1+ (Negative); Specific Gravity Urine 1.011 (1.000-1.030); Urobilinogen Urine Negative (Negative)
[2023-11-16 07:39] LABS: Protein Creatinine Ratio Urine 0.4 (0-0.2); Total Protein Urine Random 35.4 mg/dl (0-11.9)
--- NOTE | 2023-11-16 08:56 | Nephrology Progress Note ---
Date of Service November 16, 2023 Assessment & Plan (1) ELVI (acute kidney injury): Plan: * Time frame for kidney injury is unknown. Last documented Cr value prior to hospitalization was 1.0 04/29 * Clinically suspect ELVI. 11/13/23 renal US revealed R 12.9 cm, L 12.7 cm w/ normal cortical thickness bilaterally. There was no cyst/stone/mass reported. Doppler was negative for TOÑO * 11/12/23 urine microscopy revealed > 30 rbc/hpf, no casts. UPCR 3.0. 11/16/23 urine microscopy now show 10-30 rbc/hpf, UPCR 0.4 * Clinical presentation concerning for Humira induced autoimmune disease (ANCA, lupus like disease) or AIN related to Entyvio - Clinicopathologic Spectrum of Renal Lesions Following [id number] Inhibitor Threapy Kidney 360 p. 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 Mrs. Trevizo desires trial of steroid therapy. Patient is now day #3 of steroid therapy. If kidney function fails to stabilize after 5 days, then consider transfer to tertiary care facility for VIR directed kidney biopsy (2) Microscopic hematuria: Plan: * Non-smoker. No history of gross hematuria. CT without lesions. No casts reported on microscopy. Suspect glomerular source. Hold cystoscopy for now (3) HTN (hypertension): Plan: * Renal duplex negative for TOÑO * Continue Amlodipine, Carvedilol * Avoid PATRICIA/ARB due to ELVI (4) Cirrhosis: Plan: * 11/14/23 urine sodium 81 * Presentation atypical for HRS --> non-oliguric and hypertensive. * Cirrhotic based on imaging. Known history of HESTER. No liver biopsy. Admission and Anticipated Discharge Date Admission Date: November 12, 2023 Subjective Mrs. Trevizo was evaluated in her hospital room this morning. Her was present at bedside. Mrs. Trevizo reports that she is tolerating steroid therapy without side effect. Her NORTON has resolved, her RA has improved Review of Systems Constitutional: no fever Eyes: no problem reported Ear, Nose, Mouth, Throat: no problem reported Respiratory: no cough, no dyspnea and no hemoptysis Cardiovascular: no chest pain and no edema Gastrointestinal: no abdominal pain, no nausea, no vomiting and no diarrhea/loose stools Genitourinary: + flank pain; no dysuria and no hematuri a Musculoskeletal: + back pain and + joint pain; no myalgia and no body aches Integumentary: no rash and no lesions Neurologic: no headache(s) Physical Exam Constitutional: not in distress Eyes: PERRL, conjunctivae normal, anicteric sclerae ENMT: external ear and nose normal, oropharynx normal Neck: trachea midline, no thyromegaly Respiratory: normal respiratory effort, lungs clear to auscultation Cardiovascular: RRR, no murmur, no edema Gastrointestinal (Abdomen): normal bowel sounds, soft, nontender, no hepatosplenomegaly Skin: no rashes, warm and dry Neurologic: Speech / Cognition: normal speech and normal cognition Psychiatric: Orientation: alert and oriented x 3 Affect: euthymic affect Results & Data Vital Signs (Past 12 Hours) Vital Signs Temp Pulse Pulse Resp BP Pulse Ox O2 Del Method 11/16/23 07:37 Room Air 11/16/23 07:20 36.4 C L 106 H 18 180/61 H 94 Room Air 11/16/23 07:14 77 11/16/23 04:00 36.4 C L 82 18 127/69 97 CPAP 11/16/23 03:03 15 96 11/16/23 00:00 36.6 C 85 20 132/68 96 CPAP 11/15/23 23:25 87 11/15/23 22:58 90 25 H 94 Laboratory Results Laboratory Results - last 24 hr 11/16/23 11/16/23 06:38 08:11 Sodium 135 L Potassium 4.3 Chloride 104 Carbon Dioxide 20 L Anion Gap 11 BUN 80 H D Creatinine 3.35 H D Est Cr Clr Drug Dosing 24.3 Est GFR ( Amer) 16.3 Est GFR (Non-Af Amer) 14.1 BUN/Creatinine Ratio 23.9 H Glucose 162 H Calcium 9.0 Total Bilirubin 0.4 AST 18 ALT 31 Alkaline Phosphatase 62 Total Protein 7.8 Albumin 4.2 Globulin 3.6 Albumin/Globulin Ratio 1.2 Urine Color Yellow Urine Appearance Clear Urine pH 5.0 Ur Specific [place] 1.011 Urine Protein 1+ H Urine Glucose (UA) Negative Urine Ketones Negative Urine Blood 2+ H Urine Nitrite Negative Urine Bilirubin Negative Urine Urobilinogen Negative Ur Leukocyte Esterase Negative Urine WBC (Auto) 1-5 Urine RBC (Auto) 10-30 H U Hyaline Cast (Auto) 1-5 U Epithel Cells (Auto) 10-20 H Urine Bacteria (Auto) Negative Ur Random Creatinine 84.0 U Random Total Protein 35.4 H Protein/Creatinin Ratio 0.4 H PG Care Time/CCT Total # of Minutes Spent Total Time Spent with Patient: Total time spent is greater than 50% in coordination of care (as documented) at patient's floor/unit and/or counseling patient: Coding Level of Care Code 57638 SUB INP/OBS CARE 3/50MIN Diagnoses ELVI (acute kidney injury) N17.9 Microscopic hematuria R31.29 HTN (hypertension) I10 Cirrhosis K74.60
[2023-11-16 09:05] LABS: Albumin Globulin Ratio 1.2 (0.9-2); Albumin Level 4.2 gm/dl (3.4-5.0); BUN Creatinine Ratio 23.9 (10-20); Bilirubin,Total 0.4 mg/dl (0.2-1.0); Creatinine Clr Calc Pharmacy 24.3 ml/min; Est GFR (African American) 16.3 ml/min; Est GFR (Non-African American) 14.1 ml/min; Globulin 3.6 gm/dl (2.5-4.0); Potassium 4.3 mmol/L (3.5-5.1); Total Protein 7.8 gm/dl (6.0-8.3)
--- NOTE | 2023-11-16 15:22 | Hospitalist Progress Note ---
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 Creatinine did not respond to fluid challenge. Fractional sodium excretion 2.3. Sed rate is elevated at 63. She is now on parenteral steroid therapy per nephrology, day 3. No obstruction seen on CT scan. Monitor intake and output and serial labs. Appreciate nephrology consultation and recommendations. She may yet require renal biopsy which can be done at a later date as an outpatient (2) HTN (hypertension): Plan: Coreg has been added to amlodipine for heart rate and blood pressure control. Improved (3) Cirrhosis: Plan: Noted on CT of the abd/pelvis along with splenomegaly . She appears to have HESTER. No signs of fluid overload . (4) Thrombocytopenia: Plan: Mild. No need for intervention at this time (5) Elevated troponin: Plan: Mild on admission. No acute EKG changes. No chest pain. (6) Microscopic hematuria: Plan: No gross hematuria. No apparent infectious process. 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 Outpatient follow-up (8) Anxiety: Plan: Continue xanax, citalopram. Remeron has been restarted (9) Hypothyroidism: Plan: Stable. Conitnue levothyroxine Plan Hopeful discharge to home soon on oral prednisone Admission and Anticipated Discharge Date Admission Date: November 12, 2023 Subjective Mrs. Trevizo was evaluated in her hospital room this morning. Reports feeling well, has some diarrhea due to steroids use Review of Systems Review of Systems: Constitutional-no fever or chills ENT-no blurred vision, no double vision, no epistaxis, no sore throat Respiratory-no cough, no wheezing, no shortness of breath Cardiac-no palpitations, no chest pain, no syncope GI-no nausea, vomiting, diarrhea, melena, hematochezia -no urinary retention, no urinary incontinence, no dysuria, no hematuria Musculoskeletal-no joint pain, no muscle tenderness Skin-no bruising, no rashes, no pruritus Neuro-no isolated weakness, no paresthesia, no weakness Psych-no depression. She does have chronic anxiety Physical Exam Physical Exam: Brief Exam: In general is a pleasant 63-year-old female who is alert and oriented x 3 at time my exam she is accompanied by her at the time my examination. HEENT is normocephalic atraumatic. Heart is regular rate and rhythm with no murmur. Lungs: Are diminished but clear. Abdomen is obese soft and nontender , nondistended Extremities: Are intact with no significant edema Neurologically she is alert and oriented x 3. Results & Data Results & Data Vital Signs (Past 12 Hours) Vital Signs Temp Pulse Pulse Resp BP BP Pulse Ox 11/16/23 14:56 89 11/16/23 11:25 36.7 C 76 18 160/88 H 99 11/16/23 07:37 11/16/23 07:20 36.4 C L 106 H 18 180/61 H 94 11/16/23 07:14 77 11/16/23 04:00 36.4 C L 82 18 127/69 97 O2 Del Method 11/16/23 14:56 11/16/23 11:25 Room Air 11/16/23 07:37 Room Air 11/16/23 07:20 Room Air 11/16/23 07:14 11/16/23 04:00 CPAP Laboratory Results Abnormal lab results 11/16/23 11/16/23 Range/Units 06:38 08:11 Sodium 135 L (136-145) mmol/L Carbon Dioxide 20 L (21-32) mmol/L BUN 80 H D (6-23) mg/dl Creatinine 3.35 H D (0.6-1.2) mg/dl BUN/Creatinine Ratio 23.9 H (10-20) Glucose 162 H (70-99(Fasting)) mg/dl Urine Protein 1+ H (Negative) Urine Blood 2+ H (Negative) Urine RBC (Auto) 10-30 H (0-4) /hpf U Epithel Cells (Auto) 10-20 H (0-5) /lpf U Random Total Protein 35.4 H (0-11.9) mg/dl Protein/Creatinin Ratio 0.4 H (0-0.2) PG Care Time/CCT Total # of Minutes Spent Total Time Spent with Patient: Total time spent is greater than 50% in coordination of care (as documented) at patient's floor/unit and/or counseling patient: Coding Level of Care Code 79112 SUB INP/OBS CARE 2/35MIN Diagnoses ELVI (acute kidney injury) N17.9 HTN (hypertension) I10 Cirrhosis K74.60 Thrombocytopenia D69.6 Elevated troponin R79.89 Microscopic hematuria R31.29 Avascular necrosis of bones of both hips M87.051; M87.052 Anxiety F41.9 Hypothyroidism E03.9
[2023-11-17 07:59] LABS: Hematocrit (blood only) 30.4 % (37.0-47.0); Hemoglobin 10.3 g/dl (12.0-16.0); Immature Granulocytes # (auto) 0.06 K/uL (0.01-0.20); Lymphocytes # (auto) 0.57 K/uL (1.20-3.40); Lymphocytes % (auto) 9.3 %; Mean Corpuscular Hemoglobin 33.3 pg (25.0-34.0); Mean Corpuscular Hgb Conc 33.9 g/dL (32.0-36.0); Mean Corpuscular Volume 98.4 fL (80.0-100.0); Monocytes # (auto) 0.45 K/uL (0.11-0.59); Monocytes % (auto) 7.4 %; Neutrophils # (auto) 5.04 K/uL (1.40-6.50); Neutrophils % (auto) 82.3 %; Platelet Count 144 K/uL (130-400); RDW Coefficient of Variation 13.1 % (11.5-14.5); RDW Standard Deviation 47.1 fL (36.4-46.3); Red Blood Count 3.09 M/uL (4.20-5.40); White Blood Count 6.12 K/ul (4.8-10.8)
[2023-11-17 08:09] LABS: Calcium 8.5 mg/dl (8.6-10.3); Est GFR (African American) 18.4 ml/min; Est GFR (Non-African American) 15.9 ml/min; Potassium 4.5 mmol/L (3.5-5.1)
[2023-11-17] MEDS: predniSONE 20 MG TAB PO SCH (08:15)
--- NOTE | 2023-11-17 08:53 | Nephrology Progress Note ---
Date of Service November 17, 2023 Assessment & Plan (1) ELVI (acute kidney injury): Plan: * Time frame for kidney injury is unknown. Last documented Cr value prior to hospitalization was 1.0 04/29 * Clinically suspect ELVI. 11/13/23 renal US revealed R 12.9 cm, L 12.7 cm w/ normal cortical thickness bilaterally. There was no cyst/stone/mass reported. Doppler was negative for TOÑO * 11/12/23 urine microscopy revealed > 30 rbc/hpf, no casts. UPCR 3.0. 11/16/23 urine microscopy now show 10-30 rbc/hpf, UPCR 0.4. Will repeat 24 hour urine collection for quantitation of urinary protein * Clinical presentation concerning for Humira induced autoimmune disease (ANCA, lupus like disease) or AIN related to Entyvio - Clinicopathologic Spectrum of Renal Lesions Following [id number] Inhibitor Threapy Kidney 360 p. 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 Cr is now trending down. Patient appears to be clinically responding to steroid therapy. Hold renal biopsy. Monitor PRP, UO. Consider discharge to home with Prednisone therapy and close Nephrology follow up once Cr 2.5 or less (2) Microscopic hematuria: Plan: * Non-smoker. No history of gross hematuria. CT without lesions. No casts reported on microscopy. Suspect glomerular source. Hold cystoscopy for now (3) HTN (hypertension): Plan: * Renal duplex negative for TOÑO * Continue Amlodipine, Carvedilol * Avoid PATRICIA/ARB due to ELVI (4) Cirrhosis: Plan: * 11/14/23 urine sodium 81 * Presentation atypical for HRS --> non-oliguric and hypertensive. * Cirrhotic based on imaging. Known history of HESTER. No liver biopsy. Admission and Anticipated Discharge Date Admission Date: November 12, 2023 Subjective Mrs. Trevizo was evaluated in her hospital room this morning. Her was present at bedside. Mrs. Trevizo denies uremic symptoms. She is maintaining good UO. She voices no new medical concerns Review of Systems Constitutional: no fever Eyes: no problem reported Ear, Nose, Mouth, Throat: no problem reported Respiratory: no cough, no dyspnea and no hemoptysis Cardiovascular: no chest pain and no edema Gastrointestinal: no abdominal pain, no nausea, no vomiting and no diarrhea/loose stools Genitourinary: no dysuria and no hematuria Musculoskeletal: + back pain and + joint pain; no myalgia and no body aches Integumentary: no rash and no lesions Neurologic: no headache(s) Physical Exam Constitutional: not in distress Eyes: PERRL, conjunctivae normal, anicteric sclerae ENMT: external ear and nose normal, oropharynx normal Neck: trachea midline, no thyromegaly Respiratory: normal respiratory effort, lungs clear to auscultation Cardiovascular: RRR, no murmur, no edema Gastrointestinal (Abdomen): normal bowel sounds, soft, nontender, no hepatosplenomegaly Skin: no rashes, warm and dry Neurologic: Speech / Cognition: normal speech and normal cognition Psychiatric: Orientation: alert and oriented x 3 Affect: euthymic affect Results & Data Vital Signs (Past 12 Hours) Vital Signs Temp Pulse Pulse Resp BP BP Pulse Ox 11/17/23 07:57 11/17/23 07:53 77 11/17/23 07:26 36.7 C 92 H 16 184/76 H 95 11/17/23 04:00 36.7 C 79 18 129/71 96 11/17/23 02:46 89 20 93 11/17/23 00:24 98 H 11/17/23 00:00 36.9 C 78 18 133/72 97 11/16/23 22:20 79 19 93 O2 Del Method 11/17/23 07:57 Room Air 11/17/23 07:53 11/17/23 07:26 Room Air 11/17/23 04:00 CPAP 11/17/23 02:46 11/17/23 00:24 11/17/23 00:00 Nasal Cannula 11/16/23 22:20 Laboratory Results Laboratory Results - last 24 hr 11/16/23 11/17/23 08:11 07:13 WBC 6.12 RBC 3.09 L Hgb 10.3 L Hct 30.4 L MCV 98.4 MCH 33.3 MCHC 33.9 RDW Std Deviation 47.1 H RDW Coeff of Yobany 13.1 Plt Count 144 MPV 12.0 Immature Gran % (Auto) 1.0 Neut % (Auto) 82.3 Lymph % (Auto) 9.3 [place] % (Auto) 7.4 Eos % (Auto) 0.0 Baso % (Auto) 0.0 Neut # (Auto) 5.04 Lymph # (Auto) 0.57 L [place] # (Auto) 0.45 Eos # (Auto) 0.00 Baso # (Auto) 0.00 Immature Gran # (Auto) 0.06 ESR 54 H Sodium 135 L 136 Potassium 4.3 4.5 Chloride 104 104 Carbon Dioxide 20 L 21 Anion Gap 11 11 BUN 80 H D 91 H Creatinine 3.35 H D 3.03 H D Est Cr Clr Drug Dosing 24.3 27.0 Est GFR ( Amer) 16.3 18.4 Est GFR (Non-Af Amer) 14.1 15.9 BUN/Creatinine Ratio 23.9 H 30.0 H Glucose 162 H 169 H Calcium 9.0 8.5 L Total Bilirubin 0.4 AST 18 ALT 31 Alkaline Phosphatase 62 Total Protein 7.8 Albumin 4.2 Globulin 3.6 Albumin/Globulin Ratio 1.2 PG Care Time/CCT Total # of Minutes Spent Total Time Spent with Patient: Total time spent is greater than 50% in coordination of care (as documented) at patient's floor/unit and/or counseling patient: Coding Level of Care Code 28938 SUB INP/OBS CARE 3/50MIN Diagnoses ELVI (acute kidney injury) N17.9 Microscopic hematuria R31.29 HTN (hypertension) I10 Cirrhosis K74.60
[2023-11-17 10:55] LABS: Appearance Urine Clear (Clear); Bacteria Urine Automated Negative (Negative); Bilirubin Urine Negative (Negative); Blood Urine 3+ (Negative); Color Urine Yellow; Glucose Urine UA Negative (Negative); Ketones Urine Negative (Negative); Leukocyte Esterase Urine Negative (Negative); Nitrite Urine Negative (Negative); Protein Urine 1+ (Negative); Specific Gravity Urine 1.013 (1.000-1.030); Urobilinogen Urine Negative (Negative)
[2023-11-17 11:08] LABS: Total Protein Urine Random 43.4 mg/dl (0-11.9)
[2023-11-17 11:13] LABS: Creatinine Urine Random 62.2 mg/dl; Protein Creatinine Ratio Urine 0.7 (0-0.2)
[2023-11-17 12:02] LABS: Albumin 3.8 g/dL (3.8-4.8); Alpha 1 Globulin 0.2 g/dL (0.2-0.3); Alpha 2 Globulin 0.7 g/dL (0.5-0.9); Beta-1-Globulin 0.5 g/dL (0.4-0.6); Beta-2-Globulin 0.5 g/dL (0.2-0.5); Gamma Globulin 1.2 g/dL (0.8-1.7); Monoclonal Protein Band 1 DNR g/dL (NONE DETECTED); Monoclonal Protein Band 2 DNR g/dL (NONE DETECTED); Monoclonal Protein Band 3 DNR g/dL (NONE DETECTED)
[2023-11-17 14:54] LABS: Total Protein 24 Hour Urine 925.6 mg/24 Hr (0-149.1); Urine Total Protein 35.6 mg/dl
[2023-11-17] MEDS: carvediloL 6.25 MG TAB PO SCH (16:00)
--- NOTE | 2023-11-17 17:14 | Hospitalist Progress Note ---
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 Creatinine did not respond to fluid challenge. Fractional sodium excretion 2.3. Sed rate is elevated at 63. She is now on parenteral steroid therapy per nephrology, day 3. No obstruction seen on CT scan. Monitor intake and output and serial labs. Appreciate nephrology consultation and recommendations. She may yet require renal biopsy which can be done at a later date as an outpatient 11/16 creatinine stays above 3 , IV steroids will be transitioned to prednisone monitor BMP (2) HTN (hypertension): Plan: Coreg has been added to amlodipine for heart rate and blood pressure control. Blood pressure and HR remain elevated, will increase Coreg 6.25 mg BID (3) Cirrhosis: Plan: Noted on CT of the abd/pelvis along with splenomegaly . She appears to have HESTER. No signs of fluid overload . (4) Thrombocytopenia: Plan: Mild. No need for intervention at this time (5) Elevated troponin: Plan: Mild on admission. No acute EKG changes. No chest pain. (6) Microscopic hematuria: Plan: No gross hematuria. No apparent infectious process. 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 Outpatient follow-up (8) Anxiety: Plan: Continue xanax, citalopram. Remeron has been restarted (9) Hypothyroidism: Plan: Stable. Conitnue levothyroxine Plan discharge home tomorrow if creatinine is stable Admission and Anticipated Discharge Date Admission Date: November 12, 2023 Subjective Patient was seen and examined, no new complaints , she reports good appetite, urinates well, denies diarrhea Review of Systems Review of Systems: Constitutional-no fever or chills ENT-no blurred vision, no double vision, no epistaxis, no sore throat Respiratory-no cough, no wheezing, no shortness of breath Cardiac-no palpitations, no chest pain, no syncope GI-no nausea, vomiting, diarrhea, melena, hematochezia -no urinary retention, no urinary incontinence, no dysuria, no hematuria Musculoskeletal-no joint pain, no muscle tenderness Skin-no bruising, no rashes, no pruritus Neuro-no isolated weakness, no paresthesia, no weakness Psych-no depression. She does have chronic anxiety Physical Exam Physical Exam: Brief Exam: In general is a pleasant 63-year-old female who is alert and oriented x 3 at time my exam she is accompanied by her at the time my examination. HEENT is normocephalic atraumatic. Heart is regular rate and rhythm with no murmur. Lungs: Are diminished but clear. Abdomen is obese soft and nontender , nondistended Extremities: Are intact with no significant edema Neurologically she is alert and oriented x 3. Results & Data Results & Data Vital Signs (Past 12 Hours) Vital Signs Temp Pulse Pulse Resp BP Pulse Ox O2 Del Method 11/17/23 16:25 36.4 C 107 H 20 168/90 H 94 Room Air 11/17/23 15:37 81 11/17/23 10:46 36.4 C L 83 14 153/84 H 97 Nasal Cannula 11/17/23 07:57 Room Air 11/17/23 07:53 77 11/17/23 07:26 36.7 C 92 H 16 184/76 H 95 Room Air O2 Flow Rate 11/17/23 16:25 11/17/23 15:37 11/17/23 10:46 3 11/17/23 07:57 11/17/23 07:53 11/17/23 07:26 PG Care Time/CCT Total # of Minutes Spent Total Time Spent with Patient: Total time spent is greater than 50% in coordination of care (as documented) at patient's floor/unit and/or counseling patient: Coding Level of Care Code 80261 SUB INP/OBS CARE 2/35MIN Diagnoses ELVI (acute kidney injury) N17.9 HTN (hypertension) I10 Cirrhosis K74.60 Thrombocytopenia D69.6 Elevated troponin R79.89 Microscopic hematuria R31.29 Avascular necrosis of bones of both hips M87.051; M87.052 Anxiety F41.9 Hypothyroidism E03.9
[2023-11-17] MEDS: HYOSCYAMINE SULFATE 0.125 MG TAB PO PRN (18:09)
[2023-11-18 06:50] LABS: Hematocrit (blood only) 30.8 % (37.0-47.0); Hemoglobin 10.3 g/dl (12.0-16.0); Immature Granulocytes # (auto) 0.04 K/uL (0.01-0.20); Immature Granulocytes % (auto) 0.8 %; Lymphocytes # (auto) 0.53 K/uL (1.20-3.40); Lymphocytes % (auto) 11.1 %; Mean Corpuscular Hemoglobin 33.1 pg (25.0-34.0); Mean Corpuscular Hgb Conc 33.4 g/dL (32.0-36.0); Mean Platelet Volume 11.3 fL (9.4-12.4); Monocytes # (auto) 0.57 K/uL (0.11-0.59); Monocytes % (auto) 11.9 %; Neutrophils # (auto) 3.64 K/uL (1.40-6.50); Neutrophils % (auto) 76.2 %; Platelet Count 143 K/uL (130-400); RDW Coefficient of Variation 12.9 % (11.5-14.5); RDW Standard Deviation 46.5 fL (36.4-46.3); Red Blood Count 3.11 M/uL (4.20-5.40); White Blood Count 4.78 K/ul (4.8-10.8)
[2023-11-18 07:06] LABS: BUN Creatinine Ratio 31.8 (10-20); Calcium 8.3 mg/dl (8.6-10.3); Creatinine Clr Calc Pharmacy 30.6 ml/min; Est GFR (African American) 20.8 ml/min; Potassium 4.4 mmol/L (3.5-5.1)
--- NOTE | 2023-11-18 08:57 | Nephrology Progress Note ---
Date of Service November 18, 2023 Assessment & Plan (1) ELVI (acute kidney injury): Plan: * Time frame for kidney injury is unknown. Last documented Cr value prior to hospitalization was 1.0 04/29 * Clinically suspect ELVI. 11/13/23 renal US revealed R 12.9 cm, L 12.7 cm w/ normal cortical thickness bilaterally. There was no cyst/stone/mass reported. Doppler was negative for TOÑO * 11/12/23 urine microscopy revealed > 30 rbc/hpf, no casts. UPCR 3.0. 11/17/23 urine microscopy now shows 5-10 rbc/hpf. 11/17/23 24 hour urine 925 mg * Clinical presentation concerning for Humira induced autoimmune disease (ANCA, lupus like disease) or AIN related to Entyvio * Continue to hold Humira and Entyvio * Completed 3 days of 500 mg IV Solumedrol (steroid start date 11/14/23) * Continue Prednisone 20 mg po TID * Continue PPI and Bactrim therapy * 11/14/23 SIEP - normal, no monoclonal protein * ESR improved from 63-->48 * BRICE, ANCA, C3/C4, anti-BM, screening for viral hepatitis B and C, and PLA2r - pending * EGFR 18-20 cc/min. Advised patient to remain on steroid therapy and follow low K diet * Patient is responding to steroid therapy. Hold renal biopsy. She wishes to return home with close outpatient Nephrology follow up. I have placed order in outpatient EMR for CBC, PRP tomorrow and CBC, PRP, ESR, urinalysis w/ UPCR in 1 week. I have asked my office staff to call patient and schedule outpatient follow up in my office in 1-2 weeks (2) Microscopic hematuria: Plan: * Non-smoker. No history of gross hematuria. CT without lesions. No casts reported on microscopy. Suspect glomerular source. Hold cystoscopy for now (3) HTN (hypertension): Plan: * Renal duplex negative for TOÑO * Continue Amlodipine, Carvedilol * Avoid PATRICIA/ARB due to ELVI (4) Cirrhosis: Plan: * 11/14/23 urine sodium 81 * Presentation atypical for HRS --> non-oliguric and hypertensive. * Cirrhotic based on imaging. Known history of HESTER. No liver biopsy. Admission and Anticipated Discharge Date Admission Date: November 12, 2023 Subjective Mrs. Trevizo was evaluated in her hospital room this morning. Her was present at bedside. Mrs. Trevizo denies uremic symptoms. She is maintaining good UO. She hopes to be discharged to home today on oral steroid therapy and outpatient follow up Review of Systems Constitutional: no fever Eyes: no problem reported Ear, Nose, Mouth, Throat: no problem reported Respiratory: no cough, no dyspnea and no hemoptysis Cardiovascular: no chest pain and no edema Gastrointestinal: no abdominal pain, no nausea, no vomiting and no diarrhea/loose stools Genitourinary: no dysuria and no hematuria Musculoskeletal: + back pain and + joint pain; no myalgia and no body aches Integumentary: no rash and no lesions Neurologic: no headache(s) Physical Exam Constitutional: not in distress Eyes: PERRL, conjunctivae normal, anicteric sclerae ENMT: external ear and nose normal, oropharynx normal Neck: trachea midline, no thyromegaly Respiratory: normal respiratory effort, lungs clear to auscultation Cardiovascular: RRR, no murmur, no edema Gastrointestinal (Abdomen): normal bowel sounds, soft, nontender, no hepatosplenomegaly Skin: no rashes, warm and dry Neurologic: Speech / Cognition: normal speech and normal cognition Psychiatric: Orientation: alert and oriented x 3 Affect: euthymic affect Results & Data Vital Signs (Past 12 Hours) Vital Signs Temp Pulse Pulse Resp BP BP Pulse Ox 11/18/23 07:41 11/18/23 07:41 36.4 C 85 16 167/101 H 95 11/18/23 07:00 72 11/18/23 04:25 36.3 C L 77 18 158/85 H 96 11/18/23 02:56 71 21 93 11/17/23 23:09 72 11/17/23 23:02 36.3 C L 72 20 136/77 95 11/17/23 22:41 77 21 93 O2 Del Method 11/18/23 07:41 Room Air 11/18/23 07:41 Room Air 11/18/23 07:00 11/18/23 04:25 Room Air 11/18/23 02:56 11/17/23 23:09 11/17/23 23:02 Room Air 11/17/23 22:41 Laboratory Results Laboratory Results - last 24 hr 11/14/23 11/17/2311/16/24 05:37 13:00 Unknown WBC RBC Hgb Hct MCV MCH MCHC RDW Std Deviation RDW Coeff of Yobany Plt Count MPV Immature Gran % (Auto) Neut % (Auto) Lymph % (Auto) Hutchinson % (Auto) Eos % (Auto) Baso % (Auto) Neut # (Auto) Lymph # (Auto) Hutchinson # (Auto) Eos # (Auto) Baso # (Auto) Immature Gran # (Auto) ESR Sodium Potassium Chloride Carbon Dioxide Anion Gap BUN Creatinine Est Cr Clr Drug Dosing Est GFR ( Amer) Est GFR (Non-Af Amer) BUN/Creatinine Ratio Glucose Calcium Total Protein (PEP) 7.0 Albumin (PEP) 3.8 Huzjd-3-Duvphousr 0.2 Hrssp-5-Jyixxhvlz 0.7 Occv-8-Ydkylfma 0.5 Ccav-0-Wbfozcmb 0.5 Gamma Globulins 1.2 Monoclonal Peak 3 DNR Ser Monoclonl Protein DNR Ser Monoclonal Prot 2 DNR PEP Interpretation SEE NOTE Urine Color Yellow Urine Appearance Clear Urine pH 5.0 Ur Specific [place] 1.013 Urine Protein 1+ H Urine Glucose (UA) Negative Urine Ketones Negative Urine Blood 3+ H Urine Nitrite Negative Urine Bilirubin Negative Urine Urobilinogen Negative Ur Leukocyte Esterase Negative Urine WBC (Auto) 1-5 Urine RBC (Auto) 5-10 H U Hyaline Cast (Auto) 1-5 U Epithel Cells (Auto) 10-20 H Urine Bacteria (Auto) Negative Urine Yeast Present A Ur Random Creatinine 62.2 U Random Total Protein 43.4 H Urine Total Volume 2600 Ur Total Protein 24 Hr 925.6 H Protein/Creatinin Ratio 0.7 H Urine Total Protein 35.6 Serum Immunofixation SEE NOTE 11/18/23 06:19 WBC 4.78 L RBC 3.11 L Hgb 10.3 L Hct 30.8 L MCV 99.0 MCH 33.1 MCHC 33.4 RDW Std Deviation 46.5 H RDW Coeff of Yobany 12.9 Plt Count 143 MPV 11.3 Immature Gran % (Auto) 0.8 Neut % (Auto) 76.2 Lymph % (Auto) 11.1 Hutchinson % (Auto) 11.9 Eos % (Auto) 0.0 Baso % (Auto) 0.0 Neut # (Auto) 3.64 Lymph # (Auto) 0.53 L Hutchinson # (Auto) 0.57 Eos # (Auto) 0.00 Baso # (Auto) 0.00 Immature Gran # (Auto) 0.04 ESR 48 H Sodium 136 Potassium 4.4 Chloride 105 Carbon Dioxide 21 Anion Gap 10 BUN 87 H Creatinine 2.74 H Est Cr Clr Drug Dosing 30.6 Est GFR ( Amer) 20.8 Est GFR (Non-Af Amer) 18.0 BUN/Creatinine Ratio 31.8 H Glucose 169 H Calcium 8.3 L Total Protein (PEP) Albumin (PEP) Kamgx-2-Cvwpncduo Dwjap-7-Dtzqjzilh Jumz-6-Qikypdgd Hagi-6-Ihwsrvqw Gamma Globulins Monoclonal Peak 3 Ser Monoclonl Protein Ser Monoclonal Prot 2 PEP Interpretation Urine Color Urine Appearance Urine pH Ur Specific [place] Urine Protein Urine Glucose (UA) Urine Ketones Urine Blood Urine Nitrite Urine Bilirubin Urine Urobilinogen Ur Leukocyte Esterase Urine WBC (Auto) Urine RBC (Auto) U Hyaline Cast (Auto) U Epithel Cells (Auto) Urine Bacteria (Auto) Urine Yeast Ur Random Creatinine U Random Total Protein Urine Total Volume Ur Total Protein 24 Hr Protein/Creatinin Ratio Urine Total Protein Serum Immunofixation Diagnostic Findings 11/14/23 SIEP - normal. No M-spike Adalimumab half-life elimination: Terminal: ~2 weeks (range: 10 to 20 days) PG Care Time/CCT Total # of Minutes Spent Total Time Spent with Patient: Total time spent is greater than 50% in coordination of care (as documented) at patient's floor/unit and/or counseling patient: Coding Level of Care Code 88561 SUB INP/OBS CARE 3/50MIN Diagnoses ELVI (acute kidney injury) N17.9 Microscopic hematuria R31.29 HTN (hypertension) I10 Cirrhosis K74.60
--- NOTE | 2023-11-18 10:50 | Discharge Summary ---
Date of Service November 18, 2023 Admission HPI Per Admitting Provider Laura is a 63 year old female with a PMH significant for Ulcerative Colitis (On Entyvio and Cosentyx), uncontrolled HTN, anxiety who was sent to the [facility] ED from the Infusion [facility] this afternoon after routine outpatient labs were noted to be abnormal. On arrival to the ED she was noted to be Hypertensive at 189/106, tachycardic at 101, but otherwise stable. Labs were significant for a hgb of 11.8 (down from 13 as of 04/24/23), platelets of 122 (down from 147 as of 04/24), Cr of 2.59 (baseline is near 0.8), BUN of 58, AST of 60, ALT of 53, initial high sen trop of 42, and UA with 2+ protein, 3+ blood, >30 RBC, and 5-10 epithelial cells. Chest xray was negative for acute findings. CT of the abd/pelvis wo IV con was read as "1. No acute infectious or inflammatory findings are identified in the abdomen or pelvis. 2. The liver is enlarged, heterogeneous, and cirrhotic in morphology. 3. Splenomegaly. 4. 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 5. Additional findings as above.". Prior to admission the patient was given 1L NSS and one dose of Ceftriaxone. At the time of the exam the patient was sitting in bed in no acute distress with her sitting bedside, history was obtained from both. She states that she receives Q8W Entyvio infusions and Q2W Humira infusions with her last Humira infusion being on 11/04. She had her infusion of Entyvio this am where her routine labs were drawn. When asked, she denies recent fever, chills, chest pain, SOB, cough, abd pain, nausea, vomiting, diarrhea, dysuria, hematuria, melena, LE swelling, and recent trauma. She confirms her previous diagnosis of fatty liver disease but did not know that it progressed to cirrhosis. When asked about HTN, she states that she is always hypertensive when her BP is checked at medical facilities but her systolic BP normally runs in the 130's when it's checked at home. She denies recent NSAID use or frequent Acetaminophen use. She has never used tobacco. When asked about alcohol use, she states that she was d rinking 2, double shots of vodka nightly for "years". She recently quit drinking last month and denies any withdrawal symptoms. Regarding the avascular necrosis of the BL hips, she states that she has had arthritis in her hips for years. Her pain has been worse recently but she denies ambulatory dysfunction. She is a full code and wishes for her to make medical decisions for her if she cannot make them herself. Please refer to Dr. Figueroa' attestation for any changes to the treatment plan Principal Diagnosis acute kidney injury Discharge Exam Brief Exam: In general is a pleasant 63-year-old female who is alert and oriented x 3 at time my exam she is accompanied by her at the time my examination. HEENT is normocephalic atraumatic. Heart is regular rate and rhythm with no murmur. Lungs: Are diminished but clear. Abdomen is obese soft and nontender , nondistended Extremities: Are intact with no significant edema Neurologically she is alert and oriented x 3. 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 Creatinine did not respond to fluid challenge. Fractional sodium excretion 2.3. Sed rate is elevated at 63. She is now on parenteral steroid therapy per nephrology, day 3. No obstruction seen on CT scan. Monitor intake and output and serial labs. Appreciate nephrology consultation and recommendations. She may yet require renal biopsy which can be done at a later date as an outpatient 11/16 creatinine stays above 3 , IV steroids will be transitioned to prednisone 20 mg tid monitor BMP 11/17 creatinine is trending down 2.74, as per nephrology is ready for discharge started on Bactrim for infection control (2) HTN (hypertension): Coreg has been added to amlodipine for heart rate and blood pressure control. Blood pressure and HR remain elevated, will increase Coreg 6.25 mg BID (3) Cirrhosis: Noted on CT of the abd/pelvis along with splenomegaly . She appears to have HESTER. No signs of fluid overload . (4) Thrombocytopenia: Mild. No need for intervention at this time (5) Elevated troponin: Mild on admission. No acute EKG changes. No chest pain. (6) Microscopic hematuria: No gross hematuria. No apparent infectious process. 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 Outpatient follow-up (8) Anxiety: Continue xanax, citalopram. Remeron has been restarted (9) Hypothyroidism: Stable. Conitnue levothyroxine Plan discharge home tomorrow if creatinine is stable Total Time Total Time Spent Total Time Spent (In Minutes): 35 minutes Discharge Plan Discharge Items Patient Disposition: Home - Self-Care Reason For Visit: ELVI, CIRRHOSIS, THOMBOCYTOPENIA, HEMATURIA Discharge Diagnosis: acute kidney injury Activity: Resume your previous activity Lifting: Gradually increase as tolerated Non-emergency contact: Primary Care Provider, High Worker and Primer Supervisor Call non-emergency contact if: you have any medication questions and you have a fever Follow-up/Referrals: Denia Calderon MD [Primary Care Provider] - Diet: Heart Healthy Addtl Attending Provider Instructions: blood work next week Addtl Postal Delivery Officer Provider Instructions: follow up with behavioral health worker in 10-14 days Pending Studies at Discharge: No Stand-Alone Forms: [employer], Smoking Cessation Medications and DC Order Prescriptions: New carvedilol 6.25 mg Tablet 6.25 mg PO BIDM Qty: 60 0RF amlodipine [Norvasc] 5 mg Tablet 5 mg PO BID17 Qty: 60 0RF pantoprazole 40 mg Tablet,Delayed Release (Dr/Ec) 40 mg PO QAM Qty: 20 0RF hyoscyamine sulfate [Levsin] 0.125 mg Tablet 0.125 mg PO Q4H 10 Days Qty: 10 0RF sulfamethoxazole-trimethoprim [Bactrim] 400-80 mg Tablet 1 tab PO DAILY Qty: 3 0RF prednisone 20 mg Tablet 20 mg PO TID Qty: 90 0RF Continued cyanocobalamin (vitamin B-12) [Vitamin B-12] 1,000 mcg Tablet 1,000 mcg PO QAM cholecalciferol (vitamin D3) [Vitamin D3] 50 mcg (2,000 unit) Capsule 50 mcg PO QAM montelukast 10 mg tablet 10 mg PO HS mirtazapine 15 mg tablet 15 mg PO HS alprazolam 0.5 mg tablet,disintegrating 0.5 mg PO DAILY PRN (Reason: Anxiety) albuterol sulfate 90 mcg/actuation HFA aerosol inhaler 2 puff INHALATION Q6 PRN (Reason: Shortness Of Breath Or Wheezing) citalopram 20 mg tablet 20 mg PO QAM levothyroxine 137 mcg capsule 137 mcg PO DAILYBB tramadol 50 mg tablet 50 mg PO Q6 PRN (Reason: Pain) baclofen 10 mg Tablet 10 mg PO BID PRN (Reason: Muscle Pain) Discontinued Entyvio 300 mg recon soln 300 mg IV Q8WK Qty: 1 6RF Humira(CF) Pen 40 mg/0.4 mL pen injector kit See Rx Instructions subcut .COMPLEX Qty: 2 2RF Rx Instructions: inject one - 40 mg/0.4 mL pen every 2 weeks subcut ascorbic acid (vitamin C) [Vitamin C] 1,000 mg Tablet 1 g PO QAM Discharge Orders: Discharge Order (Routine); Ordered 11/18/23 Ordered By: Arabella Lock Admission Data Admit Date/Time: 11/12/23 19:15 Attending Provider: Arabella Lock Admit Provider: Bryan Figueroa Primary Care Provider: Denia Calderon Other Providers: Erickson Clemons; Bryan Figueroa Coding Level of Care Code 69883 INP/OBS DISCH >30 MIN Diagnoses ELVI (acute kidney injury) N17.9 HTN (hypertension) I10 Cirrhosis K74.60 Thrombocytopenia D69.6 Elevated troponin R79.89 Microscopic hematuria R31.29 Avascular necrosis of bones of both hips M87.051; M87.052 Anxiety F41.9 Hypothyroidism E03.9
[2023-11-23 20:57] LABS: ANCA Screen Negative (Negative); Anti Nuclear Antibody Screen POSITIVE (NEGATIVE); Anti-Glom Basement Antibody <1.0 AI (<1.0); Complement C3 156 mg/dL (83-193); Complement Total(CH50) >60 U/mL (31-60); HBSAG NON-REACTIVE (NON-REACTIVE); Hepatitis B Core Antibody IgM NON-REACTIVE (NON-REACTIVE); Hepatitis B Surface Ab, Quant <5 mIU/mL (> OR = 10); Myeloperoxidase Ab <1.0 AI (<1.0); Proteinase-3 AB <1.0 AI (<1.0)
[2023-11-24 12:16] LABS: ANA Pattern Nuclear, Homogeneous; ANA Titer 1:40 titer
== END 2023-11-18 11:25 | disposition home or self-care (01) | DRG 683 ==
LOC: ED 15:56 → EDINP 19:15 → SUATTDRO 19:15 → 2N 23:45

== ENCOUNTER 2024-09-13 12:56 | Inpatient (IN) ==
[2024-09-13 14:02] LABS: Basophils # (auto) 0.03 K/uL (0.00-0.20); Basophils % (auto) 0.4 %; Eosinophils # (auto) 0.07 K/uL (0.00-0.50); Eosinophils % (auto) 0.9 %; Hematocrit (blood only) 30.6 % (37.0-47.0); Hemoglobin 10.1 g/dl (12.0-16.0); Immature Granulocytes # (auto) 0.07 K/uL (0.01-0.20); Immature Granulocytes % (auto) 0.9 %; Lymphocytes # (auto) 0.98 K/uL (1.20-3.40); Lymphocytes % (auto) 12.8 %; Mean Corpuscular Hemoglobin 33.9 pg (25.0-34.0); Mean Corpuscular Volume 102.7 fL (80.0-100.0); Mean Platelet Volume 11.2 fL (9.4-12.4); Monocytes # (auto) 1.05 K/uL (0.11-0.59); Monocytes % (auto) 13.7 %; Neutrophils # (auto) 5.46 K/uL (1.40-6.50); Neutrophils % (auto) 71.3 %; Nucleated RBC # (auto) 0.02 K/uL (0.00-0.12); Nucleated RBC % (auto) 0.3 %; Platelet Count 138 K/uL (130-400); RDW Coefficient of Variation 13.9 % (11.5-14.5); RDW Standard Deviation 52.4 fL (36.4-46.3); Red Blood Count 2.98 M/uL (4.20-5.40); White Blood Count 7.66 K/ul (4.8-10.8)
[2024-09-13] MEDS: MoRPHine SULFATE 10 MG/ML CARP/VIAL IV STA (14:08)
[2024-09-13] MEDS: ONDANSETRON INJ 2 MG/ML 2 ML VIAL IV STA (14:10)
--- NOTE | 2024-09-13 14:20 | Emergency Department Note ---
ED Provider Note History of Present Illness Chief Complaint: Pain (Generalized) Time Seen by Provider: 09/13/24 13:10 Source: patient Mode of arrival: ambulatory Limitations: no limitations This patient is a 64-year-old female who presents to the emergency department for evaluation of generalized pain. Patient states that she has a history of ulcerative colitis, rheumatoid disorder and kidney injury. She states that she is on chronic prednisone which she believes is prescribed for the ulcerative colitis. She has tried 3 times over the past year to start weaning the prednisone but every time she does she begins getting pain. She states that a week ago, they cut her dosage from 30 mg daily to 20 mg and since then, she has had progressively worsening pain in her back and feet. She states that the feet feel cold and tingly and she is unable to stand on them. She reports some swelling in her lower extremities. She denies any abdominal pain, vomiting, shortness of breath, fevers or chills. She lives at home with her and he has had a hard time helping her get around. Home Medications Medication Instructions Recorded Confirmed Type cholecalciferol (vitamin D3) 50 50 mcg PO QAM 03/21/22 09/13/24 History mcg (2,000 unit) capsule (Vitamin D3) cyanocobalamin (vitamin B-12) 1,000 mcg PO QAM 03/21/22 09/13/24 History 1,000 mcg tablet (Vitamin B-12) mirtazapine 15 mg tablet 15 mg PO HS 03/21/22 09/13/24 History montelukast 10 mg tablet 10 mg PO HS 03/21/22 09/13/24 History albuterol sulfate 90 mcg/actuation 2 puff inhalation Q6 PRN Shortness 11/12/23 09/13/24 History aerosol inhaler Of Breath Or Wheezing alprazolam 0.5 mg disintegrating 0.5 mg PO DAILY PRN Anxiety 11/12/23 09/13/24 History tablet baclofen 10 mg tablet 10 mg PO BID PRN Muscle Pain 11/12/23 09/13/24 History citalopram 20 mg tablet 20 mg PO QAM 11/12/23 09/13/24 History tramadol 50 mg tablet 50 mg PO Q6 PRN Pain 11/12/23 09/13/24 History furosemide 20 mg tablet 40 mg (2 x 20 mg) PO .COMPLEX #180 05/20/24 09/13/24 Rx tabs upadacitinib 45 mg tablet,extended 15 mg PO DAILY 07/28/24 09/13/24 History release 24 hr (Rinvoq) carvedilol 12.5 mg tablet 12.5 mg PO UD 09/13/24 09/13/24 History carvedilol 6.25 mg tablet 6.25 mg PO UD 09/13/24 09/13/24 History folic acid 1 mg tablet 1 mg PO QAM 09/13/24 09/13/24 History leflunomide 10 mg tablet 10 mg PO QAM 09/13/24 09/13/24 History levothyroxine 125 mcg tablet 125 mcg QAM 09/13/24 09/13/24 History pantoprazole 40 mg tablet,delayed 40 mg PO QAM 09/13/24 09/13/24 History release prednisone 10 mg tablet 30 mg PO DAILY 09/13/24 09/13/24 History rosuvastatin 5 mg tablet 5 mg PO DAILY 09/13/24 09/13/24 History Allergies Allergy/AdvReac Type Severity Reaction Status Date / Time poison gil extract Allergy Severe weeping Verified 05/20/24 11:23 sores ragweed pollen Allergy Mild ITCHY EYES Verified 05/20/24 11:23 Past Med/Surg History Problem List (Updated 09/13/24 @ 22:47 by Mavis Daniels PA-C) Ambulatory dysfunction (Acute) Generalized pain (Acute) Ambulatory dysfunction Inflammatory arthritis Vitamin D deficiency Chronic kidney disease with active medical management without dialysis, stage 3 (moderate) Hypomagnesemia BRICE positive Hematuria (Acute) Elevated troponin Avascular necrosis of bones of both hips HTN (hypertension) Microscopic hematuria Thrombocytopenia Cirrhosis ELVI (acute kidney injury) (Acute) Anxiety Sleep apnea CPAP Hypothyroidism Joint pain Ulcerative pancolitis Medical History Arthritis "IBD ARTHRITIS" Ulcerative colitis Post traumatic stress disorder History of COVID-19 05/26/22 VIA HOME TEST Surgical History History of colonoscopy History of laparoscopy [place] teeth removed Family History Other No family history of adverse response to anesthesia Social History Smoking Status: Unknown if ever smoked Second Hand Exposure: Yes ( A CHILD); Do You Dip or Chew Tobacco: No; Hx Alcohol Use: Yes Alcohol type: hard liquor Hx Substance Use: No Preferred Language: British Communication Ability: Effective Visual Impairment: No Limitations Hearing Ability: Normal Set Staff Fitter Required: No Beliefs That Will Affect Care: None marital status: Current Living Situation: Spouse current occupational status: retired Feels Safe at Home: Yes Diet: ideal protein, low salt and other Diet Comment: no phosphorus, limited dairy, lean proteins Seatbelt Use: always Assistive Devices: CPAP Physical Exam Vital Signs Vital Signs - 24 hr 09/13/24 13:21 09/13/24 13:35 09/13/24 14:07 Temperature 36.6 C Temperature Source Oral Pulse Rate 87 87 Pulse Rate [Apical] 90 Pulse Rhythm [Apical] Pulse Strength [Apical] Respiratory Rate 14 19 Respiratory Effort / Characteristics Non-Labored Spontaneous Non-Labored Spontaneous Respiratory Depth Normal Normal Respiratory Pattern Regular Regular Blood Pressure 219/107 H Blood Pressure [Left Arm] 213/107 H Blood Pressure Mean 144 Blood Pressure Mean [Left Arm] 142 Blood Pressure Position [Left Arm] Semi-fowlers Pulse Oximetry 98 94 Oxygen Delivery Method Room Air Room Air Oxygen Flow Rate Sepsis Recent Fever Within 48 Hours No Sepsis New/Unexplained Change in Mental Status No Sepsis Action Taken by Nursing No Action Required 09/13/24 16:00 09/13/24 16:29 Temperature Temperature Source Pulse Rate 96 H Pulse Rate [Apical] 95 H Pulse Rhythm [Apical] Regular Pulse Strength [Apical] Normal Respiratory Rate 18 Respiratory Effort / Characteristics Non-Labored Spontaneous Respiratory Depth Normal Respiratory Pattern Regular Blood Pressure Blood Pressure [Left Arm] 169/94 H Blood Pressure Mean Blood Pressure Mean [Left Arm] 119 Blood Pressure Position [Left Arm] Sitting Pulse Oximetry 93 Oxygen Delivery Method Nasal Cannula Oxygen Flow Rate 2 Sepsis Recent Fever Within 48 Hours Sepsis New/Unexplained Change in Mental Status Sepsis Action Taken by Nursing VITALS: Vitals are noted on the nurse's note and reviewed by myself. GENERAL: This is a 64-year-old female, chronically unwell appearing. SKIN: The skin was without rashes. EYES: Pupils equal round and reactive to light and accommodation. MOUTH: Mucous membranes moist. HEART: Regular rate and rhythm without murmurs gallops or rubs. LUNGS: Clear to auscultation bilaterally without wheezes, rales or rhonchi. ABDOMEN: Positive bowel sounds x 4. Soft, nontender to palpation. EXTREMITIES: No erythema of the feet. Cap refill within 2 seconds. Mild pitting edema noted bilaterally. NEURO: Patient was alert and oriented to person place and time. Course Administered Medications Acetaminophen (Acetaminophen 325 Mg Tab) 650 mg PO Q6H RENU Stop: 10/13/24 20:59 Last Admin: 09/13/24 21:57 Dose: 650 mg Documented By: CHINEDU Baclofen (Baclofen 10 Mg Tab) 10 mg PO BID PRN PRN Reason: Muscle Pain Stop: 10/13/24 20:57 Last Admin: 09/13/24 21:58 Dose: 10 mg Documented By: CHINEDU Carvedilol (Carvedilol 6.25 Mg Tab) 6.25 mg PO BIDM [facility] Stop: 10/13/24 20:57 Last Admin: 09/13/24 21:57 Dose: 6.25 mg Documented By: CHINEDU Enoxaparin Sodium (Enoxaparin Inj 40 Mg/0.4 Ml Syr) 40 mg SQ Q12H RENU Stop: 10/13/24 20:59 Last Admin: 09/13/24 20:11 Dose: 40 mg Documented By: LARON Melatonin (Melatonin 3 Mg Tab) 3 mg PO HS PRN PRN Reason: Insomnia Stop: 10/13/24 20:57 Last Admin: 09/13/24 21:58 Dose: 3 mg Documented By: CHINEDU Mirtazapine (Mirtazapine Tab 15 Mg Tab) 15 mg PO HS RENU Stop: 10/13/24 20:59 Last Admin: 09/13/24 21:58 Dose: 15 mg Documented By: CHINEDU Montelukast Sodium (Montelukast Sodium 10 Mg Tablet) 10 mg PO HS RENU Stop: 10/13/24 20:59 Last Admin: 09/13/24 21:58 Dose: 10 mg Documented By: CHINEDU Morphine Sulfate (Morphine Sulfate 10 Mg/Ml Carp/Vial) 6 mg IV Q4H PRN PRN Reason: Mod-Sev Pain (Scale 4-10) Stop: 09/27/24 19:26 Last Admin: 09/13/24 20:11 Dose: 6 mg Documented By: LARON Discontinued Medications Methylprednisolone (Methylprednisolone 125 Mg/2 Ml Vial) 60 mg IV NOW STA Stop: 09/13/24 19:25 Last Admin: 09/13/24 19:41 Dose: 60 mg Documented By: FLY Metoprolol Tartrate (Metoprolol Tartrate 1 Mg/Ml Vial) 5 mg IV NOW STA Stop: 09/13/24 15:47 Last Admin: 09/13/24 17:15 Dose: Not Given Documented By: MISAEL Morphine Sulfate (Morphine Sulfate 10 Mg/Ml Carp/Vial) 6 mg IV NOW STA Stop: 09/13/24 13:45 Last Admin: 09/13/24 14:08 Dose: 6 mg Documented By: ASHLEY Ondansetron HCl (Ondansetron Inj 2 Mg/Ml 2 Ml Vial) 4 mg IV NOW STA Stop: 09/13/24 13:45 Last Admin: 09/13/24 14:10 Dose: 4 mg Documented By: ASHLEY Medical Decision Making Differential Diagnosis Differential diagnosis includes infection, adverse reaction to medication, electrolyte imbalance, vitamin deficiency, neuropathy, among others. Laboratory Data Attestation: I reviewed the patient's lab results. 09/13/24 13:17 09/13/24 13:17 Lab Results 09/13/24 Range/Units 13:17 WBC 7.66 (4.8-10.8) K/ul RBC 2.98 L (4.20-5.40) M/uL Hgb 10.1 L (12.0-16.0) g/dl Hct 30.6 L (37.0-47.0) % MCV 102.7 H (80.0-100.0) fL MCH 33.9 (25.0-34.0) pg MCHC 33.0 (32.0-36.0) g/dL RDW Std Deviation 52.4 H (36.4-46.3) fL RDW Coeff of Yobany 13.9 (11.5-14.5) % Plt Count 138 (130-400) K/uL MPV 11.2 (9.4-12.4) fL Immature Gran % (Auto) 0.9 % Neut % (Auto) 71.3 % Lymph % (Auto) 12.8 % Kinney % (Auto) 13.7 % Eos % (Auto) 0.9 % Baso % (Auto) 0.4 % Neut # (Auto) 5.46 (1.40-6.50) K/uL Lymph # (Auto) 0.98 L (1.20-3.40) K/uL Kinney # (Auto) 1.05 H (0.11-0.59) K/uL Eos # (Auto) 0.07 (0.00-0.50) K/uL Baso # (Auto) 0.03 (0.00-0.20) K/uL Immature Gran # (Auto) 0.07 (0.01-0.20) K/uL Absolute Nucleated RBC 0.02 (0.00-0.12) K/uL Nucleated RBC % (auto) 0.3 % Sodium 139 (136-145) mmol/L Potassium 3.9 (3.5-5.1) mmol/L Chloride 99 (98-107) mmol/L Carbon Dioxide 28 (21-32) mmol/L Anion Gap 12 H (3-11) BUN 37 H (6-23) mg/dl Creatinine 1.45 H (0.6-1.2) mg/dl Est Cr Clr Drug Dosing 52.7 ml/min eGFR 40.78 BUN/Creatinine Ratio 25.5 H (10-20) Glucose 155 H (70-99(Fasting)) mg/dl Uric Acid 10.9 H (2.6-7.2) mg/dl Calcium 10.1 (8.6-10.3) mg/dl Magnesium 2.1 (1.7-2.4) mg/dl Total Bilirubin 0.7 (0.2-1.0) mg/dl AST 44 H (13-39) U/L ALT 72 H (7-52) U/L Alkaline Phosphatase 119 H (34-104) U/L Total Creatine Kinase 35 (26-192) U/L Total Protein 8.3 (6.0-8.3) gm/dl Albumin 4.4 (3.4-5.0) gm/dl Globulin 3.9 (2.5-4.0) gm/dl Albumin/Globulin Ratio 1.1 (0.9-2) Imaging Data Attestation: I personally reviewed and interpreted this imaging study as follows: Radiologist's Impression: Chest X-Ray 09/13/24 13:45 XR chest 1V portable HISTORY: 64 years-old Female illness COMPARISON: 11/12/2023 TECHNIQUE: AP view of the chest FINDINGS: Cardiac silhouette is enlarged. Mild right hemidiaphragmatic elevation. No pneumothorax, pleural effusion or airspace consolidation. No overt pulmonary edema. Bones appear grossly intact. IMPRESSION: Cardiomegaly without acute process. ACT 112: Negative or not required by law. The above report was generated using voice recognition software. It may contain grammatical, syntax or spelling errors. Electronically signed by: Don Martinez M.D. 09/13/2024 2:48 PM MDM Narrative This patient is a 64-year-old female who presents to the emergency department for evaluation of severe bilateral foot pain as well as some generalized body pain. Patient believes this is due to weaning her prednisone. Labs are overall unremarkable. There is no leukocytosis. Patient has a stable anemia with hemoglobin of 10.1. Creatinine is 1.45 which is patient's baseline. Patient was provided something for pain. At this point, she is unable to walk due to the severe pain in her feet. She lives at home with her and he has had a hard time helping her to get around. I think she will require admission for possible placement to a rehabilitation facility. Patient is agreeable with the plan and agrees as well. Case was discussed with the [facility] hospitalist service. Impression Generalized pain, Ambulatory dysfunction Discharge Plan Visit Data Chief Complaint: Pain (Generalized) ED Provider: Caryn Whtie ED Midlevel Provider: Mavis Daniels Discharge Problem: Generalized pain, Ambulatory dysfunction Patient Disposition: Admitted As Inpatient Discharge Instructions Interventions: ED Discharge Assessment Last Done: 09/13/24 20:37
[2024-09-13 14:32] LABS: Albumin Globulin Ratio 1.1 (0.9-2); Albumin Level 4.4 gm/dl (3.4-5.0); Bilirubin,Total 0.7 mg/dl (0.2-1.0); Creatinine Clr Calc Pharmacy 52.7 ml/min; Globulin 3.9 gm/dl (2.5-4.0); Magnesium 2.1 mg/dl (1.7-2.4); Potassium 3.9 mmol/L (3.5-5.1); Total Protein 8.3 gm/dl (6.0-8.3)
[2024-09-13 14:33] LABS: Calcium 10.1 mg/dl (8.6-10.3)
[2024-09-13 14:39] LABS: BUN Creatinine Ratio 25.5 (10-20)
--- NOTE | 2024-09-13 14:50 | XRay Report ---
XR chest 1V portable HISTORY: 64 years-old Female illness COMPARISON: 11/12/2023 TECHNIQUE: AP view of the chest FINDINGS: Cardiac silhouette is enlarged. Mild right hemidiaphragmatic elevation. No pneumothorax, pleural effu jolanta or airspace consolidation. No overt pulmonary edema. Bones appear grossly intact. IMPRESSION: Cardiomegaly without acute process. ACT 112: Negative or not required by law. The above report was generated using voice recognition software. It may contain grammatical, syntax o r spelling errors. Electronically signed by: Don Martinez M.D. 09/13/2024 2:48 PM
--- NOTE | 2024-09-13 16:21 | Electrocardiogram Report ---
Test Reason : Blood Pressure : */* mmHG Vent. Rate : 90 BPM Atrial Rate : 90 BPM P-R Int : 158 ms QRS Dur : 94 ms QT Int : 360 ms P-R-T Axes : 34 -19 61 degrees QTcB Int : 440 ms Normal sinus rhythm Moderate voltage criteria for LVH, may be normal variant ( R in aVL , Jeffry product ) Poor R wave progression, consider anterior [place] vs. lead placement vs. LVH Abnormal ECG When compared with ECG of 12-Nov-2023 16:48, Nonspecific ST abnormality Anterolateral leads no longer present Confirmed by Serjio Ricketts ([id number]) on 09/13/2024 4:20:58 PM Referred By: REFERRED SELF Confirmed By: Serjio Ricketts
[2024-09-13] MEDS: METOPROLOL TARTRATE 1 MG/ML VIAL IV STA (17:15)
[2024-09-13] MEDS: methylPREDNISolone 125 MG/2 ML VIAL IV STA (19:41)
[2024-09-13 19:47] LABS: Uric Acid 10.9 mg/dl (2.6-7.2)
[2024-09-13] MEDS: ENOXAPARIN INJ 40 MG/0.4 ML SYR SQ SCH (20:11)
[2024-09-13] MEDS: MoRPHine SULFATE 10 MG/ML CARP/VIAL IV PRN (20:11)
--- NOTE | 2024-09-13 20:37 | History & Physical Report ---
Date of Service September 13, 2024 Assessment & Plan (1) Inflammatory arthritis: (2) Ambulatory dysfunction: (3) Chronic kidney disease with active medical management without dialysis, stage 3 (moderate): (4) Cirrhosis: (5) Ulcerative pancolitis: Plan Medically complex 64 y/o woman with history of UC, inflammatory arthritis and CKD-3 with ELVI a year ago admitted with severe diffuse joint pain and stiffness, especially feet and ankles, inability to ambulate Acute on chronic inflammatory arthritis, causing severe pain and ambulatory dysfunction with inability to walk due to ankle/foot pain Acute sciatica / right lumbar pain with radicular pain - probably flaring because of need to be in bed/chair and not walking Steroid dependence with inability to wean steroids without significant flare of arthritis Appears to be IBD-related inflammatory arthritis and flare is stereotypical for her, however, steroid sparing agent is needed. Did ok on the Rinvoq loading dose of 45 mg Consider polyarticular gout as alternative diagnosis - I checked her uric acid and it is elevated at 10.5 -methylprednisolone 60 mg IV daily until joint symptoms improve then taper -eventually start allopurinol. consider colchicine but may exacerbate diarrhea -morphine 6 mg IV prn and tramadol PRN, scheduled APAP -xrays of feet -continue leflunomide -may ultimately need increase in Rinvoq dose or alternative biologic agent -discuss plan of care with Dr. Webster and Chiquis Alvarenga with [facility]. ED d iscussed with Dr. Laughlin Ulcerative colitis currently controlled on rinvoq followed by [facility] - Chiquis Alvarenga CKD stage III, creatinine to baseline. 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 Laughlin. -avoid NSAIDS MASH related cirrhosis, AST/ALT elevated but stable hypertensionimproved after pain control in the ED, continue carvedilol hypothyroidcontinue levothyroxine edemacontinue furosemide morbid obesity BMI of 40would benefit from GLP1 agonist, would help her joint pain, AUGUSTO, and also her Jorge related cirrhosis OSAcontinue CPAP History of Present Illness Chief Complaint: Joint pain and stiffness, especially bilateral feet, unable to ambulate Primary Care Provider: Denia Calderon MD 64-year-old woman with complex history of ulcerative colitis, associated inflammatory arthritis, and kidney injury about a year ago 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 That required stopping her Biologics which had previously been effective on her UC and arthritis. She was started on Rinvoq this summer, initially on loading dose of 45 mg daily and steroids were able to be tapered as low as 5 mg prednisone at that time. At 5 mg she had flare of arthritis symptoms and dose had to be increased. Since then she has had several rounds of trying to taper steroids, with recurrent joint pain symptoms each time. Recently on very slow taper since May. Reduced from 30 mg to 20 mg a week ago and leflunomide 10 mg was started. Within three days of decreasing prednisone she had significant increase in joint pain, especially both feet and ankles, to the point now that she is unable to ambulate and her has basically had to carry her around the house. She is having severe pain in both feet and ankles and they feel cold to her, though her reports they have been warm to touch. She has had L>R ankle joint swelling and has pain in metatarsal heads. No 1st MTP pain per se. She has element of pain and stiffness all over. Hands and elbows relatively spared and has been able to wallace. She has neck, tspine and lspine pain and stiffness. She's having right low back pain with radiation to right buttock. Her bowel symptoms are close to baseline with several loose stools per day, no blood, has had few episodes of bowel incontinence mainly caused by reduced mobility. Symptoms are worse in the morning, but currently severe all day long. She says she does have a history of a gout flare in the past that was treated with colchicine, though not recent. no eye pain or redness, has noticed some blurred vision while reading recently Allergies Allergy/AdvReac Type Severity Reaction Status Date / Time poison gil extract Allergy Severe weeping Verified 05/20/24 11:23 sores ragweed pollen Allergy Mild ITCHY EYES Verified 05/20/24 11:23 Home Medications Medication Instructions Recorded Confirmed Type cholecalciferol (vitamin D3) 50 50 mcg PO QAM 03/21/22 09/13/24 History mcg (2,000 unit) capsule (Vitamin D3) cyanocobalamin (vitamin B-12) 1,000 mcg PO QAM 03/21/22 09/13/24 History 1,000 mcg tablet (Vitamin B-12) mirtazapine 15 mg tablet 15 mg PO 03/21/22 09/13/24 History montelukast 10 mg tablet 10 mg PO HS 03/21/22 09/13/24 History albuterol sulfate 90 mcg/actuation 2 puff inhalation Q6 PRN Shortness 11/12/23 09/13/24 History aerosol inhaler Of Breath Or Wheezing alprazolam 0.5 mg disintegrating 0.5 mg PO DAILY PRN Anxiety 11/12/23 09/13/24 History tablet baclofen 10 mg tablet 10 mg PO BID PRN Muscle Pain 11/12/23 09/13/24 History citalopram 20 mg tablet 20 mg PO QAM 11/12/23 09/13/24 History tramadol 50 mg tablet 50 mg PO Q6 PRN Pain 11/12/23 09/13/24 History furosemide 20 mg tablet 40 mg (2 x 20 mg) PO .COMPLEX #180 05/20/24 09/13/24 Rx tabs levothyroxine 137 mcg capsule 125 mcg PO DAILYBB 07/28/24 09/13/24 History upadacitinib 45 mg tablet,extended 15 mg PO DAILY 07/28/24 09/13/24 History release 24 hr (Rinvoq) carvedilol 12.5 mg tablet 12.5 mg PO UD 09/13/24 09/13/24 History carvedilol 6.25 mg tablet 6.25 mg PO UD 09/13/24 09/13/24 History folic acid 1 mg tablet 1 mg PO QAM 09/13/24 09/13/24 History leflunomide 10 mg tablet 10 mg PO QAM 09/13/24 09/13/24 History pantoprazole 40 mg tablet,delayed 40 mg PO QA 09/13/24 09/13/24 History release prednisone 10 mg tablet 30 mg PO DAILY 09/13/24 09/13/24 History rosuvastatin 5 mg tablet 5 mg PO DAILY 09/13/24 09/13/24 History Past Med/Surg History Problem List Ambulatory dysfunction Inflammatory arthritis Vitamin D deficiency Chronic kidney disease with active medical management without dialysis, stage 3 (moderate) Hypomagnesemia BRICE positive Hematuria (Acute) Elevated troponin Avascular necrosis of bones of both hips HTN (hypertension) Microscopic hematuria Thrombocytopenia Cirrhosis ELVI (acute kidney injury) (Acute) Anxiety Sleep apnea CPAP Hypothyroidism Joint pain Ulcerative pancolitis Medical History Arthritis "IBD ARTHRITIS" Ulcerative colitis Post traumatic stress disorder History of COVID-19 05/26/22 VIA HOME TEST Surgical History History of colonoscopy History of laparoscopy [place] teeth removed Family History Other No family history of adverse response to anesthesia Social History Smoking Status: Unknown if ever smoked Second Hand Exposure: Yes ( A CHILD); Do You Dip or Chew Tobacco: No; Hx Alcohol Use: Yes Alcohol type: hard liquor Hx Substance Use: No Preferred Language: Ethiopian Communication Ability: Effective Visual Impairment: No Limitations Hearing Ability: Normal Filter Bed Placer Required: No Beliefs That Will Affect Care: None marital status: Current Living Situation: Spouse current occupational status: retired Feels Safe at Home: Yes Diet: ideal protein, low salt and other Diet Comment: no phosphorus, limited dairy, lean proteins Seatbelt Use: always Assistive Devices: CPAP Review of Systems Review of Systems: All systems reviewed & are unremarkable except as noted in HPI & below Physical Exam Physical Exam: PHYSICAL EXAMINATION Last 24h vital signs reviewed, see documentation in flowsheet General: appears stiff/tense and uncomfortable, sitting semireclined in ED [facility] HEENT: cushingoid appearance with garland facies and supraclavicular fat pads, pupils round and equal, sclerae anicteric, no conjunctival injection, moist mucus membranes Lungs: Normal respiratory effort. Clear to auscultation bilaterally. No RRW Heart: Regular rate and rhythm, no murmurs. No JVD Abdomen: Soft, nontender, nondistended. Bowel sounds present. Extremities: Warm, dry, well-perfused. mild edema of ankles and minimal feet. left ankle with some joint swelling/effusion no erythema or tenderness, right ankle appears normal, decreased range of motion at ankles and toes, knees appear normal, L-spine nontender, shoulders and elbows with some stiffness but no warmth or swelling, hands appear normal normal MCPs she has some plantar warts on her fingers bilaterally and tip of left thumb Neuro: Alert and oriented x 4, face symmetric, moves 4 extremities well Psych: Normal affect and behavior Results & Data Results & Data Vital Signs (Past 12 Hours) Vital Signs Temp Pulse Pulse Resp BP BP Pulse Ox 09/13/24 16:29 96 H 09/13/24 16:00 95 H 18 169/94 H 93 09/13/24 14:07 90 19 213/107 H 94 09/13/24 13:35 87 09/13/24 13:21 97.9 F 87 14 219/107 H 98 O2 Del Method O2 Flow Rate 09/13/24 16:29 09/13/24 16:00 Nasal Cannula 2 09/13/24 14:07 Room Air 09/13/24 13:35 09/13/24 13:21 Room Air Laboratory Results 09/13/24 Range/Units 13:17 WBC 7.66 (4.8-10.8) K/ul RBC 2.98 L (4.20-5.40) M/uL Hgb 10.1 L (12.0-16.0) g/dl Hct 30.6 L (37.0-47.0) % MCV 102.7 H (80.0-100.0) fL MCH 33.9 (25.0-34.0) pg MCHC 33.0 (32.0-36.0) g/dL RDW Std Deviation 52.4 H (36.4-46.3) fL RDW Coeff of Yobany 13.9 (11.5-14.5) % Plt Count 138 (130-400) K/uL MPV 11.2 (9.4-12.4) fL Immature Gran % (Auto) 0.9 % Neut % (Auto) 71.3 % Lymph % (Auto) 12.8 % [place] % (Auto) 13.7 % Eos % (Auto) 0.9 % Baso % (Auto) 0.4 % Neut # (Auto) 5.46 (1.40-6.50) K/uL Lymph # (Auto) 0.98 L (1.20-3.40) K/uL [place] # (Auto) 1.05 H (0.11-0.59) K/uL Eos # (Auto) 0.07 (0.00-0.50) K/uL Baso # (Auto) 0.03 (0.00-0.20) K/uL Immature Gran # (Auto) 0.07 (0.01-0.20) K/uL Absolute Nucleated RBC 0.02 (0.00-0.12) K/uL Nucleated RBC % (auto) 0.3 % Sodium 139 (136-145) mmol/L Potassium 3.9 (3.5-5.1) mmol/L Chloride 99 (98-107) mmol/L Carbon Dioxide 28 (21-32) mmol/L Anion Gap 12 H (3-11) BUN 37 H (6-23) mg/dl Creatinine 1.45 H (0.6-1.2) mg/dl Est Cr Clr Drug Dosing 52.7 ml/min eGFR 40.78 BUN/Creatinine Ratio 25.5 H (10-20) Glucose 155 H (70-99(Fasting)) mg/dl Uric Acid 10.9 H (2.6-7.2) mg/dl Calcium 10.1 (8.6-10.3) mg/dl Magnesium 2.1 (1.7-2.4) mg/dl Total Bilirubin 0.7 (0.2-1.0) mg/dl AST 44 H (13-39) U/L ALT 72 H (7-52) U/L Alkaline Phosphatase 119 H (34-104) U/L Total Creatine Kinase 35 (26-192) U/L C-Reactive Protein Pending Total Protein 8.3 (6.0-8.3) gm/dl Albumin 4.4 (3.4-5.0) gm/dl Globulin 3.9 (2.5-4.0) gm/dl Albumin/Globulin Ratio 1.1 (0.9-2) Diagnostic Findings chest x-ray was clear I personally reviewed the x-ray film and agree with the interpretation by the radiologist I personally reviewed the EKG tracing shows poor R wave progression but no acute ST changes Medications Administered morphine 6 mg IV by ED Code Status & VTE Plan VTE Prophylaxis Plan VTE Prophylaxis will be ordered: Yes PG Care Time/CCT Total # of Minutes Spent Total Time Spent with Patient: Total time spent is greater than 50% in coordination of care (as documented) at patient's floor/unit and/or counseling patient: Coding Level of Care Code 83566 INT INP/OBS CARE Diagnoses Inflammatory arthritis M19.90 Ambulatory dysfunction R26.2 Chronic kidney disease with active medical management without dialysis, stage 3 (moderate) N18.30 Cirrhosis K74.60 Ulcerative pancolitis K51.00
[2024-09-13] MEDS ORDERED: ALUMINUM/MAGNESIUM SUSP 30 ML UDC PO PRN (20:58)
[2024-09-13] MEDS ORDERED: ONDANSETRON INJ 2 MG/ML 2 ML VIAL IV PRN (20:58)
[2024-09-13] MEDS ORDERED: ALBUTEROL HFA 8 GM INHALER INH PRN (20:58)
[2024-09-13] MEDS ORDERED: MAGNESIUM HYDROXIDE SUSP 30 ML UDC PO PRN (20:58)
[2024-09-13] MEDS ORDERED: POLYETHYLENE (MIRALAX) 17 GM PACK PO PRN (20:58)
[2024-09-13] MEDS: ACETAMINOPHEN 325 MG TAB PO SCH (21:57)
[2024-09-13] MEDS: carvediloL 6.25 MG TAB PO SCH (21:57)
[2024-09-13] MEDS: MIRTAZAPINE TAB 15 MG TAB PO SCH (21:58)
[2024-09-13] MEDS: MONTELUKAST SODIUM 10 MG TABLET PO SCH (21:58)
[2024-09-13] MEDS: MELATONIN 3 MG TAB PO PRN (21:58)
[2024-09-13] MEDS: BACLOFEN 10 MG TAB PO PRN (21:58)
--- OUTSIDE RECORDS SUMMARY | 2024-09-13 22:03 | External Medical Summary | Summary of Care ---
Author Name Unknown Organization [facility] Address [address] [place] [address] Phone [phone] Care Team Providers Care Paint Line Operator Name Role Phone Denia Calderon MD Primary Care Provid er Reason for Visit * Reason Comments Rheum Follow Up Recheck RA Encounter Details Date Type Department Care Team (Late st Contact Info) Description 08/30/2024 8:40 AM EST Office Visit Rheumatology [place] [phone] [employer] [place] [address] Isidro Mccoy MD [facility] [place] [address] Enteropathic arthritis*; Ulcerative pancolitis with complication (HCC); Encounter for long-term (current) use of medications Allergies No known active allergiesdocumented as of this encounter (statuses as of 08/30/2024) Medications Citalopram Hydrobromide 20 MG Oral Tablet (CeleXA) Take 1 Tablet by mouth in the morning. 07/03/20 Active Cyanocobalamin 1000 MCG Oral Tablet (Cyanocobalamin) Take 1 Tablet by mouth in the morning. 07/03/20 Active Levothyroxine Sodium 137 MCG Oral Capsule (Tirosint) Take 1 Capsule by mouth in the morning. 07/03/20 Active Montelukast Sodium 10 MG Oral Tablet (Singulair) Take 1 Tablet by mouth in the morning. 10/27/20 21 Active Mirtazapine 15 MG Oral Tablet (Remeron) Take 1 Tablet by mouth in the morning. 07/03/20 21 Active Vitamin D (Ergocalciferol) 1.25 MG (15907 UT) Oral Capsule Take 1 Capsule by mouth once a week. Active ALPRAZolam 0.5 MG Oral Tablet (xaNAX) 03/19/20 22 Active Hyoscyamine Sulfate 0.125 MG Oral Tablet (Levsin) Take 1 Tablet by mouth every 4 hours as needed for Cramping. Active Carvedilol 6.25 MG Oral Tablet (Coreg) Take 1 Tablet by mouth 2 times a day with morning and evening meals. Active Classics Rolling Walker Use as directed. Walker with wheels 1 Each 04/07/20 24 Active Acetaminophen 325 MG Oral Capsule Take 2 Tablets by mouth. As needed 06/25/20 23 Active Furosemide 20 MG Oral Tablet (Lasix) 2 Tablets. 1 daily 04/11/20 24 Active traMADol HCl 50 MG Oral Tablet (Ultram) Take 1 Tablet by mouth every 6 hours as needed for Pain, Severe. 30 Tablet 08/11/20 24 Active predniSONE 10 MG Oral Tablet (Deltasone) Take 30 mg daily 90 Tablet 2 08/26/20 24 Active Rinvoq 15 MG Oral Tablet Extended Release 24 Hour (Upadacitinib ER) Take by mouth daily. 30 Tablet 12 08/30/20 24 Active Leflunomide 10 MG Oral Tablet (Arava)Indicatio ns:Enteropathic arthritis,Ulcera tive pancolitis with complication (HCC),Encounter for long-term (current) use of medications Take 1 Tablet by mouth in the morning. 30 Tablet 5 08/30/20 24 Active Folic Acid 1 MG Oral TabletIndication s:Enteropathic arthritis,Ulcera tive pancolitis with complication (HCC),Encounter for long-term (current) use of medications Take 1 Tablet by mouth in the morning. 30 Tablet 5 08/30/20 24 Active Baclofen 10 MG Oral Tablet (Lioresal) Take by mouth 1 Tablet in the morning AND 1 Tablet at noon AND 1 Tablet before bedtime. 90 Tablet 1 05/15/20 22 024 Discontinued predniSONE 20 MG Oral Tablet (Deltasone) Take 1 Tablet by mouth in the morning. 024 Discontinued Pantoprazole Sodium 40 MG Oral Tablet Delayed Release (Protonix) Take 1 Tablet by mouth in the morning. 024 Discontinued Rinvoq 45 MG Oral Tablet Extended Release 24 Hour 1 daily 12/18/19 024 Discontinued(Me dication/Dose Changed) Sulfamethoxazole -Trimethoprim 400-80 MG Oral Tablet (Bactrim) 1 daily 12/01/19 024 Discontinued documented as of this encounter (statuses as of 08/30/2024) Active Problems Problem Noted Date Diagnosed Date Encounter for long-term (current) use of medicat ions 03/24/2022 Anxiety and depression 10/12/2021 PTSD (post-traumatic stress disorder) 10/12/2021 Enteropathic arthritis 10/12/2021 Ulcerative pancolitis with complication 10/12/19 Acquired hypothyroidism 10/12/2021 Rinku's thyroiditis 10/12/2021 Sleep apnea with use of cont inuous positive airway pressure (CPAP) 10/12/2021 Fatty liver 10/12/2021 Pure hypercholesterolemia 10/12/2021 documented as of this encounter (statuses as of 08/30/2024) Immunizations Name Administration Dates Next Due COVID-19, mRNA, LNP-s, PF, B ooster, 100mcg/0.5mg (Moderna) 01/25/2022,07/08/2021 Covid-19 Ad26, Single Dose (Vishnu/J&J) 021 Pneumococcal Conjugate Vacc, 13 Valent (Prevnar) 09/25/2021,07/27/2014 Seasonal Influenza, QUAD, wi th Preserv, 6 mons & Above, 0.5 mL, IM 07/03/2021 Zoster Vaccine Recombinant (Shingrix) 09/16/2021 ,07/03/2021 documented as of this encounter Social History Tobacco Use Types Packs/Day Years Used Date Smoking Tobacco: Never Smokeless Tobacco: Never Tobacco Cessation:Counseling Given: Not Answered Alcohol Use Standard Drinks/Week Comments Yes 0 (1 standard drink = 0.6 oz pur e alcohol) occ Comments No Sex and Gender Information Value Date Recorded Sex Assigned at Female 03/21/2022 9:09 PM EDT Legal Sex Female 2:03 PM EDT Gender Identity Female 03/21/2022 9:09 PM EDT Sexual Orientation Straight 03/21/2022 9: 09 PM EDT Occupation Industry Job Start Date Job End Date retired Not on file Not on file Not on file documented as of this encounter Last Filed Vital Signs Vital Sign Reading Time Taken Comments Blood Pressure 160/80 08/30/2024 8:44 AM EST Pulse - - Temperature 36 C (96.8 F) 08/30/2024 8:44 AM EST Respiratory Rate - - Oxygen Saturation - - Inhaled Oxygen Concentration - - Weight 127 kg (280 lb) 08/30/2024 8:44 AM EST Height - - Body Mass Index 43.21 11/24/2023 1:16 PM EDT documented in this encounter Progress Notes * Isidro Mccoy MD - 08/30/2024 8:47 AM EST Subjective: Patient seen today for further follow up evaluation of UC, enteropathic arthritis. Since the last visit she had a flare up while in [place] last week. She reports pain and swelling to her lower spine, upper thoracic spine. She is on rinvoq 15mg daily. She notes pain, swelling in her feet. Pain in her hips. Reports balance issues. Increased pred back to 30mg daily over the weekend from 10mg. She has been on higher doses of steroids for many months now. She does not have diabetes. She reportsthat her UC seems to be doing okay overall. She is due for some blood work. She has also noted increase warts on her hands bilaterally. He really progress over the last several months. Musculoskeletal ROS: . Abnormal: joint pain and joint swelling, neck pain . Pain scale (0-10): 5 Other ROS: . Constitutional: weight gain . Head normal . Eyes: normal . Ears, nose, throat, mouth: Garland face . Cardiovascular: normal . Respiratory: normal . Gastrointestinal: See above . Genitourinary: normal . Skin: See above All other ROS reviewed and negative Social History: Social History Tobacco Use Smoking status: Never Smokeless tobacco: Never Substance Use Topics Alcohol use: Yes Comment: occ Vaping/E-Cigarette Use Vaping/E-Cigarette Substances Vaping/E-Cigarette Devices Current Outpatient Medications Medication Sig Dispense Refill Citalopram Hydrobromide 20 MG Oral Tablet (CeleXA) Take 1 Tablet by mouth in the morning. Cyanocobalamin 1000 MCG Oral Tablet (Cyanocobalamin) Take 1 Tablet by mouth in the morning. Levothyroxine Sodium 137 MCG Oral Capsule (Tirosint) Take 1 Capsule by mouth in the morning. Montelukast Sodium 10 MG Oral Tablet (Singulair) Take 1 Tablet by mouth in the morning. Mirtazapine 15 MG Oral Tablet (Remeron) Take 1 Tablet by mouth in the morning. Vitamin D (Ergocalciferol) 1.25 MG (05923 UT) Oral Capsule Take 1 Capsule by mouth once a week. ALPRAZolam 0.5 MG Oral Tablet (xaNAX) Hyoscyamine Sulfate 0.125 MG Oral Tablet (Levsin) Take 1 Tablet by mouth every 4 hours as needed for Cramping. Carvedilol 6.25 MG Oral Tablet (Coreg) Take 1 Tablet by mouth 2 times a day with morning and evening meals. Classics Rolling Walker Use as directed. Walker with wheels 1 Each 0 Rinvoq 45 MG Oral Tablet Extended Release 24 Hour 1 daily Acetaminophen 325 MG Oral Capsule Take 2 Tablets by mouth. As needed Furosemide 20 MG Oral Tablet (Lasix) 2 Tablets. 1 daily traMADol HCl 50 MG Oral Tablet (Ultram) Take 1 Tablet by mouth every 6 hours as needed for Pain, Severe. 30 Tablet 0 predniSONE 10 MG Oral Tablet (Deltasone) Take 30 mg daily 90 Tablet 2 No current facility-administered medications for this visit. Physical Exam: BP 160/80 | Temp 36 C (96.8 F) (Infrared ) | Wt 127 kg (280 lb) | BMI 43.21 kg/m | BSA 2.46 m General: alert, no distress, well nourished, and obese HENT: normocephalic, external ears normal, no mucosal erythema, no mucosal edema, moist mucosa, no oral ulcers, garland face Eye Exam: PERRL, EOMI, conjunctiva are pink and non-injected, sclera clear Neck: supple, no adenopathy, thyroid normal size, non-tender, without nodularity Lymph: no palpable lymphadenopathy Heart: regular rate & rhythm and no gallops Lungs: clear to auscultation , no rales, wheezes or rhonchi Abdomen: abdomen soft, non-tender, obese, and normal bowel sounds Musculoskeletal Exam: . Synovitis: None noted . Tenderness: None Musculoskeletal Index: . Joint count tender (0-28): 0 . Joint count swollen (0-28): 0 . Physician global assessment of activity (0-100): 20 Assessment: (M07.60) Enteropathic arthritis (primary encounter diagnosis) (K51.019) Ulcerative pancolitis with complication (HCC) (Z79.899) Encounter for long-term (current) use of medications She is having increasing joint complaints with tapering prednisone. Given all the sequelae she is dealing with from chronic prednisone would need to get her dose down in eventually off. Will add leflunomide to her Rinvoq and follow. Plan: 1. Continue Rinvoq as per GI 2. Will send a message to GI 3. Start leflunomide 10 mg daily 4. Will get updated blood work in 1 month 5. Return to clinic as scheduled in October Isidro Mccoy MD Department of Rheumatology documented in this encounter Nursing Notes * Abby Bartlett LPN - 08/30/2024 8:42 AM EST Chief Complaint Patient presents with Rheum Follow Up Recheck RA documented in this encounter Plan of Treatment Upcoming Encounters Date Type Department Care Team (Late st Contact Info) Description 10/21/2024 10:40 AM EST Office Visit Rheumatology [place] [phone] [facility] [place] [address] Isidro Mccoy MD [facility] [place] [address] Scheduled Orders Name Type Priority Associated Diagnoses Orde r Schedule CBC WITH WBC DIFFERENTIAL Lab Routine Enteropathic arthritis Ulcerative pancolitis with complication (HCC) Encounter for long-term (current) use of medications Ordered: 08/30/2024 COMPREHENSIVE METABOLIC PANEL Lab Routine Enteropathic arthritis Ulcerative pancolitis with complication (HCC) Encounter for long-term (current) use of medications Ordered: 08/30/2024 ERYTHROCYTE SEDIMENTATION RATE (ESR) Lab Routine Enteropathic arthritis Ulcerative pancolitis with complication (HCC) Encounter for long-term (current) use of medications Ordered: 08/30/2024 Health Maintenance Due Date Last Done Comments Depression Monitoring 1974 HIV Screening 1977 Hepatitis C Screening 01/18/1980 TSH 01/18/1980 DTap/Tdap Vaccines (1 - Tdap) 1981 Pap Smear 1983 Cervical Cancer Screening 01/18/1992 HPV/Co-Test 01/18/1992 Mammogram 2002 Cologuard 2007 Fecal Occult Blood Test 2007 Sigmoidoscopy 2007 COVID-19 Vaccine (2 - Jansse n risk series) 02/22/2022 01/25/2022, 07/08/2021, 11/11/2020 Influenza Vaccine (FLU shot) (#1) 2024 07/03/2021, 07/03/2021 Diabetes Screening 09/17/2024 09/17/2021 Lipid Panel 09/17/2026 09/17/2021 Colonoscopy 03/02/2029 03/02/2019 Colorectal Cancer Screening 03/02/2029 Zoster Vaccines Completed 09/16/2021, 07/03/2021 Pneumococcal Vaccine: Pediatrics (0 to 5 Years) and At-Risk Patients (6 to 64 Years) Aged Out 09/25/2021, 07/27/2014 No longer eligible based on patient's age to complete this topic HPV (Gardasil) Vaccine Aged Out No lo nger eligible based on patient's age to complete this topic Hepatitis B Vaccine Aged Out No longe r eligible based on patient's age to complete this topic MENINGOCOCCAL (MENACTRA/MENVEO) Aged Out No longer eligible b ased on patient's age to complete this topic documented as of this encounter Medical Devices Not on filedocumented as of this encounter Visit Diagnoses Diagnosis Enteropathic arthritis- Primary Arthropathy associated with gastrointestinal conditions other than infections Ulcerative pancolitis with complication (HCC) Encounter for long-term (current) use of medications Encounter for long-term (current) use of other medications documented in this encounter Care Teams Paint Line Operator Relationship Specialty Start Date End Date Denia Calderon MD [address] [place] [address] PCP - General Family Medicine 11/12/23 documented as of this encounter"
--- OUTSIDE RECORDS SUMMARY | 2024-09-13 22:03 | External Medical Summary | Summary of Care ---
Author Name Unknown Organization [facility] Address [address] [place] [address] Phone [phone] Care Team Providers Care Concrete Panel Installer Name Role Phone Denia Calderon MD Primary Care Provid er Reason for Visit * Reason Comments New Med Request Encounter Details Date Type Department Care Team (Late st Contact Info) Description 08/31/2024 Refill Rheumatology [place] [address] [place] [address] Isidro Mccoy MD [facility] [employer] [place] [address] Enteropathic arthritis; Ulcerative pancolitis with complication (HCC); Encounter for long-term (current) use of medications Allergies No known active allergiesdocumented as of this encounter (statuses as of 09/01/2024) Medications Citalopram Hydrobromide 20 MG Oral Tablet (CeleXA) Take 1 Tablet by mouth in the morning. 1 Active Cyanocobalamin 1000 MCG Oral Tablet (Cyanocobalamin) Take 1 Tablet by mouth in the morning. 1 Active Levothyroxine Sodium 137 MCG Oral Capsule (Tirosint) Take 1 Capsule by mouth in the morning. 1 Active Montelukast Sodium 10 MG Oral Tablet (Singulair) Take 1 Tablet by mouth in the morning. 1 Active Mirtazapine 15 MG Oral Tablet (Remeron) Take 1 Tablet by mouth in the morning. 1 Active Vitamin D (Ergocalciferol) 1.25 MG (05862 UT) Oral Capsule Take 1 Capsule by mouth once a week. Active ALPRAZolam 0.5 MG Oral Tablet (xaNAX) 2 Active Hyoscyamine Sulfate 0.125 MG Oral Tablet (Levsin) Take 1 Tablet by mouth every 4 hours as needed for Cramping. Active Carvedilol 6.25 MG Oral Tablet (Coreg) Take 1 Tablet by mouth 2 times a day with morning and evening meals. Active Classics Rolling Walker Use as directed. Walker with wheels 1 Each 4 Active Acetaminophen 325 MG Oral Capsule Take 2 Tablets by mouth. As needed 3 Active Furosemide 20 MG Oral Tablet (Lasix) 2 Tablets. 1 daily 4 Active traMADol HCl 50 MG Oral Tablet (Ultram) Take 1 Tablet by mouth every 6 hours as needed for Pain, Severe. 30 Tablet 4 Active predniSONE 10 MG Oral Tablet (Deltasone) Take 30 mg daily 90 Tablet 2 4 Active Rinvoq 15 MG Oral Tablet Extended Release 24 Hour (Upadacitinib ER) Take by mouth daily. 30 Tablet 12 4 Active Leflunomide 10 MG Oral Tablet (Arava)Indication s:Enteropathic arthritis,Ulcerat shona pancolitis with complication (HCC),Encounter for long-term (current) use of medications Take 1 Tablet by mouth in the morning. 30 Tablet 5 4 Active Folic Acid 1 MG Oral TabletIndications :Enteropathic arthritis,Ulcerat shona pancolitis with complication (HCC),Encounter for long-term (current) use of medications Take 1 Tablet by mouth in the morning. 30 Tablet 5 4 Active documented as of this encounter (statuses as of 09/01/2024) Active Problems Problem Noted Date Diagnosed Date [...] as of this encounter (statuses as of 09/01/2024) Immunizations Name Administration Dates Next Due COVID-19, [...] Date Smoking Tobacco: Never Smokeless Tobacco: Never Alcohol Use Standard Drinks/Week Comments Yes 0 [...] on file documented as of this encounter Miscellaneous Notes * Telephone Encounter - Keiry Tobias two - 09/01/2024 5:02 AM ESTRefused Prescriptions: Disp Refills Leflunomide 10 MG Oral Tablet (Arava) 0 Refused By: KEIRY TOBIAS for Refusal: Too soon Folic Acid 1 MG Oral Tablet 0 Refused By: KEIRY TOBIASfor Refusal: Too soon documented in this encounter Plan of Treatment Upcoming Encounters Date Type Department Care Team (Late st Contact Info) Description 10/21/2024 10:40 AM EST Office Visit Rheumatology [place] [id number] [employer] [address] [place] [address] Isidro Mccoy MD [facility] [employer] [place] [address] Health Maintenance Due Date Last Done Comments Depression Monitoring 1974 HIV Screening 1977 Hepatitis C Screening 01/18/1980 TSH 01/18/1980 DTap/Tdap Vaccines (1 - Tdap) 1981 Pap Smear 1983 Cervical Cancer Screening 01/18/1992 HPV/Co-Test 01/18/1992 Mammogram 2002 Cologuard 2007 Fecal Occult Blood Test 2007 Sigmoidoscopy 2007 Pneumococcal Vaccine: Pediatrics (0 to 5 Years) and At-Risk Patients (6 to 64 Years) (2 of 2 - PPSV23) 11/20/2021 09/25/2021, 07/27/2014 COVID-19 Vaccine (2 - Jansse n risk series) 02/22/2022 01/25/2022, 07/08/2021, 11/11/2020 Influenza Vaccine (FLU shot) (#1) 2024 07/03/2021, 07/03/2021 Diabetes Screening 09/17/2024 09/17/2021 Lipid Panel 09/17/2026 09/17/2021 Colonoscopy 03/02/2029 03/02/2019 Colorectal Cancer Screening 03/02/2029 Zoster Vaccines Completed 09/16/2021, 07/03/2021 HPV (Gardasil) Vaccine Aged Out No lo [...] of this encounter Visit Diagnoses Diagnosis Enteropathic arthritis Arthropathy associated with gastrointestinal conditions other than infections Ulcerative pancolitis with complication (HCC) Encounter for long-term (current) use of medications Encounter for long-term (current) use of other medications documented in this encounter Care Teams Concrete Panel Installer Relationship Specialty Start Date End Date Denia Calderon MD [address] [place] [address] PCP - General Family Medicine 11/12/23 documented as of this encounter
--- OUTSIDE RECORDS SUMMARY | 2024-09-13 22:03 | External Medical Summary | Summary of Care ---
Author Name Unknown Organization [facility] Address [address] [place] [address] Phone [phone] Care Team Providers Care [employer] Computer Science Teacher Name Role Phone Denia Calderon MD Primary Care Provid er Reason for Visit * Reason Comments Rheum Follow Up Recheck RA Encounter Details Date Type Department Care Team (Late st Contact Info) Description 08/30/2024 8:40 AM EST Office Visit Rheumatology [place] [address] [place] [address] Isidro Mccoy MD [facility] [place] [address] Enteropathic arthritis*; Ulcerative pancolitis with complication (HCC); [...] 21 Active Vitamin D (Ergocalciferol) 1.25 MG (89253 UT) Oral Capsule Take 1 Capsule by [...] she had a flare up while in [facility] last week. She reports pain and swelling [...] the morning. Vitamin D (Ergocalciferol) 1.25 MG (48790 UT) Oral Capsule Take 1 Capsule by [...] 10/21/2024 10:40 AM EST Office Visit Rheumatology [place] [address] [place] [place] [address] Isidro Mccoy MD [facility] [place] [address] Scheduled Orders Name Type Priority Associated Diagnoses [...] medications documented in this encounter Care Teams [employer] Computer Science Teacher Relationship Specialty Start Date End Date Denia Calderon MD [address] [place] [address] PCP - General Family Medicine 11/12/23 documented as of this encounter"
--- NOTE | 2024-09-13 23:03 | XRay Report ---
Exam(s): XR LEFT ANKLE, 2 views EXAM: XR Left Ankle, 2 Views CLINICAL HISTORY: foot and ankle pain. TECHNIQUE: Frontal and lateral views of the left ankle. COMPARISON: No relevant prior studies available. FINDINGS: Bones/joints: Comminuted appearance of the medial malleolus appears to be chronic. Degenerative changes at the ankle. Incidental prominent plantar and posterior spurs. Heterotopic chronic appearing rounded calcifications near the expected Achilles insertion. No acute fracture. No dislocation. Soft tissues: Mild soft tissue fullness noted overlying the medial and lateral malleoli. No radiopaque foreign body or subcutaneous emphysema. IMPRESSION: Mild soft tissue fullness noted overlying the medial and lateral malleoli. No radiopaque foreign body or subcutaneous emphysema. No acute osseous abnormality. Electronically signed by: Claudio Burnett MD 09/13/24 23:02 PM
--- NOTE | 2024-09-13 23:04 | XRay Report ---
Exam(s): XR RIGHT ANKLE, 2 views EXAM: XR Right Ankle, 2 Views CLINICAL HISTORY: foot and ankle pain. TECHNIQUE: Frontal and lateral views of the right ankle. COMPARISON: No relevant prior studies available. FINDINGS: Bones/joints: Comminuted appearance of the medial malleolus is similar to the contralateral ankle and presumed chronic. Mild degenerative changes. No acute osseous abnormality. Prominent plantar and posterior calcaneal spurs. Heterotopic chronic appearing rounded calcification in the region of the expected distal Achilles. No dislocation. Soft tissues: No significance soft tissue abnormality. No radiopaque foreign body or subcutaneous emphysema. IMPRESSION: No significant abnormality involving the right ankle. Electronically signed by: Claudio Burnett MD 09/13/24 23:03 PM
--- NOTE | 2024-09-13 23:05 | XRay Report ---
Exam(s): XR LEFT FOOT, 2 views EXAM: XR Left Foot, 2 Views CLINICAL HISTORY: foot and ankle pain. TECHNIQUE: Frontal and lateral views of the left foot. COMPARISON: No relevant prior studies available. FINDINGS: Bones/joints: Prominent plantar and posterior calcaneal spurs. Rounded heterotopic chronic appearing calcifications noted in the region of the Achilles insertion. Mild degenerative changes of the first metatarsal phalangeal joint. No acute fracture. No dislocation. Soft tissues: No significant overlying soft tissue abnormality. No radiopaque foreign body. IMPRESSION: No acute findings in the left foot. Electronically signed by: Claudio Burnett MD 09/13/24 23:04 PM
--- NOTE | 2024-09-13 23:06 | XRay Report ---
Exam(s): XR RIGHT FOOT, 2 views EXAM: XR Right Foot, 2 Views CLINICAL HISTORY: foot and ankle pain. TECHNIQUE: Frontal and lateral views of the right foot. COMPARISON: No relevant prior studies available. FINDINGS: Bones/joints: Prominent plantar and posterior calcaneal spurs. Heterotopic rounded chronic appearing calcification posterior and superior to the calcaneus. Minimal degenerative changes involving the first metatarsal phalangeal joint. No acute osseous abnormality. No abnormal alignment. Soft tissues: Unremarkable. No radiopaque foreign body. IMPRESSION: No acute findings in the right foot. Electronically signed by: Claudio Burnett MD 09/13/24 23:04 PM
[2024-09-13 23:48] LABS: C Reactive Protein 12.18 mg/dl (0-0.5)
[2024-09-14] MEDS: LEVOTHYROXINE SODIUM 125 MCG TABLET PO SCH (05:50)
[2024-09-14] MEDS: traMADol HCL 50 MG TABLET PO PRN (05:50)
[2024-09-14] MEDS ORDERED: LEVOTHYROXINE SODIUM 137 MCG TABLET PO SCH (06:30)
[2024-09-14 07:19] LABS: BUN Creatinine Ratio 23.3 (10-20); Calcium 9.9 mg/dl (8.6-10.3); Creatinine Clr Calc Pharmacy 44.8 ml/min; Potassium 5.3 mmol/L (3.5-5.1)
[2024-09-14] MEDS: CITALOPRAM 20 MG TAB PO SCH (08:08)
[2024-09-14] MEDS: FOLIC ACID 1 MG TAB PO SCH (08:08)
[2024-09-14] MEDS: methylPREDNISolone 60 MG in SYRINGE 0 ML IV SCH (08:08)
[2024-09-14] MEDS: CYANOCOBALAMIN (B-12) 500 MCG TABLET PO SCH (08:08)
[2024-09-14] MEDS: LEFLUNOMIDE 10 MG TAB PO SCH (08:08)
[2024-09-14] MEDS: PANTOprazole 40 MG TAB PO SCH (08:08)
[2024-09-14] MEDS: FUROSEMIDE 40 MG TAB PO SCH (08:08)
[2024-09-14] MEDS: ROSUVASTATIN CALCIUM 5 MG TAB PO SCH (08:09)
[2024-09-14] MEDS ORDERED: methylPREDNISolone 125 MG/2 ML VIAL IV SCH (09:00)
[2024-09-14] MEDS: ALPRAZolam 0.5 MG TABLET PO PRN (09:33)
[2024-09-14] MEDS: allopurinoL 100 MG TAB PO SCH (12:26)
[2024-09-14 14:13] LABS: Appearance Urine Turbid (Clear); Bacteria Urine Automated 3+ (None Seen); Bilirubin Urine Negative (Negative); Blood Urine 3+ (Negative); Color Urine Yellow; Glucose Urine UA Negative (Negative); Ketones Urine Negative (Negative); Leukocyte Esterase Urine 1+ (Negative); Nitrite Urine Negative (Negative); Protein Urine 2+ (Negative); RBC Urine Automated >20 /hpf (0-2); Specific Gravity Urine 1.024 (1.000-1.030); Urobilinogen Urine Negative (Negative); WBC Urine Automated 21-50 /hpf (0-5); pH Urine 5.5 (4.5-7.5)
[2024-09-14 14:30] LABS: Uric Acid Crystals Urine Present (None Prsent)
[2024-09-14] MEDS ORDERED: methylPREDNISolone 125 MG/2 ML VIAL IV ONE (15:04)
--- NOTE | 2024-09-14 15:22 | Hospitalist Progress Note ---
Date of Service September 14, 2024 Assessment & Plan (1) Inflammatory arthritis: (2) Ambulatory dysfunction: (3) Chronic kidney disease with active medical management without dialysis, stage 3 (moderate): (4) Cirrhosis: (5) Ulcerative pancolitis: Plan Medically complex 64 y/o woman with history of UC, inflammatory arthritis and CKD-3 with ELVI a year ago admitted with severe diffuse joint pain and stiffness, especially feet and ankles, inability to ambulate Acute on chronic inflammatory arthritis, causing severe pain and ambulatory dysfunction with inability to walk due to ankle/foot pain Acute sciatica / right lumbar pain with radicular pain - probably flaring because of need to be in bed/chair and not walking Steroid dependence with inability to wean steroids without significant flare of arthritis Discussed with Dr. Webster 09/14. Uric acid elevated at 10.6. Could be gout, which would respond to steroids but not biologics and may explain inability to taper prednisone Plan to taper down on prednisone and up on allopurinol, he can see her Thursday in clinic -methylprednisolone 60 mg IV daily until joint symptoms improve then taper - improved a bit still can't ambulate will give dose this afternoon -start allopurinol 100 mg daily and titrate up as outpatient. avoid colchicine with renal dysfunction -morphine 6 mg IV prn and tramadol PRN, scheduled APAP -xrays of feet/ankles reviewed and unremarkable - no e/o CPPD -continue leflunomide -continue rinvoq -SS bactrim daily for PJP ppx - held off today because potassium elevated, already on PPI -sent message to Chiquis Alvarenga with [facility] Ulcerative colitis currently controlled on rinvoq followed by [facility] - Chiquis Alvarenga CKD stage III, creatinine to baseline. 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 Laughlin. -avoid NSAIDS -mild hyperkalemia and Cr up to 1.8 today high end of her baseline range. held furosemide. MASH related cirrhosis, AST/ALT elevated but stable hypertensionimproved after pain control in the ED, worsened by steroids, continue carvedilol hypothyroidcontinue levothyroxine edemaheld furosemide 09/14 morbid obesity BMI of 40would benefit from GLP1 agonist, would help her joint pain, AUGUSTO, and also her Jorge related cirrhosis OSAcontinue CPAP DVT ppx - enox bid Admission and Anticipated Discharge Date Admission Date: September 13, 2024 Subjective Carmella does feel better today - definitely less stiff and foot/ankle pain improved though still severe and can't ambulate yet left ankle swelling improved a little now can pedal feet a bit more initial pain felt like shards of glass when she tried to stand and skin over joint was painful to light touch for example, a bedsheet - this improved today Physical Exam 2 Physical Exam: PHYSICAL EXAMINATION Last 24h vital signs reviewed, see documentation in flowsheet General: appears much more comfortable and moving around more HEENT: cushingoid appearance with garland facies and supraclavicular fat pads, pupils round and equal, sclerae anicteric, no conjunctival injection, moist mucus membranes Lungs: Normal respiratory effort. Heart: deferred Abdomen: nondistended Extremities: Warm, dry, well-perfused. mild edema of ankles and minimal feet. left ankle with some joint swelling/effusion but improved, right ankle similar, decreased range of motion at ankles and toes though improved, knees appear normal she has some plantar warts on her fingers bilaterally and tip of left thumb Neuro: Alert and oriented x 4, face symmetric, moves 4 extremities well Psych: Normal affect and behavior Results & Data Results & Data Vital Signs (Past 12 Hours) Vital Signs Temp Pulse Pulse Resp BP Pulse Ox O2 Del Method 09/14/24 14:55 98.4 F 76 20 162/89 H 97 Nasal Cannula 09/14/24 08:00 Nasal Cannula 09/14/24 07:27 98.1 F 77 18 179/94 H 94 Room Air 09/14/24 03:33 79 12 93 O2 Flow Rate 09/14/24 14:55 2 09/14/24 08:00 2 09/14/24 07:27 09/14/24 03:33 2 Laboratory Results 09/13/24 13:17 09/14/24 05:43 PG Care Time/CCT Total # of Minutes Spent Total Time Spent with Patient: Total time spent is greater than 50% in coordination of care (as documented) at patient's floor/unit and/or counseling patient: Coding Level of Care Code 83419 SUB INP/OBS CARE 3/50MIN Diagnoses Inflammatory arthritis M19.90 Ambulatory dysfunction R26.2 Chronic kidney disease with active medical management without dialysis, stage 3 (moderate) N18.30 Cirrhosis K74.60 Ulcerative pancolitis K51.00
[2024-09-14] MEDS: UPADACITINIB 15 MG TABERGR24H PO SCH (15:25)
[2024-09-14] MEDS: methylPREDNISolone 60 MG in SYRINGE 0 ML IV STA (15:25)
--- OUTSIDE RECORDS SUMMARY | 2024-09-15 02:21 | External Medical Summary | Summary of Care ---
Author Name Unknown Organization [facility] Address [address] [place] [address] Phone [phone] Care Team Providers Care Boat Ride Operator Name Role Phone Denia Calderon MD Primary Care Provid er Reason for Visit * Reason Onset Date Comments Update 09/13/2024 Sidney calling in regards to his Laura- Sidney wanted to inform Dr Mccoy of her status as of now, Laura is in the ER at [facility], her PA that is taking care of her at the moment , Mavis Daniels- BP 219/107, pulse is around 90 , but, Laura is not able to stand on her own, Carmella was to have an apt with Chiquis Lester today in [place] however, Chiquis advised to take her right to the ER. She is immobility and in incontinence They are unsure if this is due to the med change that has taken place oleksandr Encounter Details Date Type Department Care Team (Late st Contact Info) Description 09/13/2024 Telephone Rheumatology [facility] [address] [facility] [place] [address] Isidro Mccoy MD [address] [place] [address] Update (Sidney calling in regards to his wif... Allergies No known active allergiesdocumented as of this encounter (statuses as of 09/13/2024) Medications Citalopram Hydrobromide 20 MG Oral Tablet [...] 1 Active Vitamin D (Ergocalciferol) 1.25 MG (44069 UT) Oral Capsule Take 1 Capsule by [...] (Lasix) 2 Tablets. 1 daily 4 Active predniSONE 10 MG Oral Tablet [...] the morning. 30 Tablet 5 4 Active traMADol HCl 50 MG Oral Tablet (Ultram) Take 1 Tablet by mouth every 6 hours as needed for Pain, Severe. 30 Tablet Active documented as of this encounter (statuses as of 09/13/2024) Active Problems Problem Noted Date Diagnosed Date [...] as of this encounter (statuses as of 09/13/2024) Immunizations Name Administration Dates Next Due COVID-19, [...] encounter Miscellaneous Notes * Telephone Encounter - Isidro Mccoy MD - 09/13/2024 2:23 PM EST I spoke with Sidney and Laura - she still has high BP at the ED. Likely to be admitted. I feel needs imaging of L spine given her complaints and asked her to discuss with hospital team * Telephone Encounter - Chastity Rodas OSA - 09/13/2024 1:48 PM EST Sidney calling in regards to his Laura- Sidney wanted to inform Dr Mccoy of her status as of now, Laura is in the ER at [facility], her PA that is taking care of her at the moment , Debbie- BP 219/107, pulse is around 90 , but, Laura is not able to stand on her own, Carmella was to have an apt with Chiquis Lester today in [facility] however, Chiquis advised to take her right to the ER. Sheis immobility and in incontinence They are unsure if this is due to the med change that has taken place around a week agao. She had just been placed on Arava as well as Folic Acid . Sidney can be reached at [phone] Mccoy may leave a message.. Please advise Thank-you! Chastity documented in this encounter Plan of Treatment Upcoming Encounters Date Type Department Care Team (Late st Contact Info) Description 10/21/2024 10:40 AM EST Office Visit Rheumatology [facility] [address] [place] [address] Isidro Mccoy MD [address] [place] [address] Health Maintenance Due Date Last Done Comments Depression Monitoring 1974 HIV Screening 1977 Hepatitis C Screening 01/18/1980 TSH 01/18/1980 DTap/Tdap Vaccines (1 - Tdap) 1981 Pap Smear 1983 Cervical Cancer Screening 01/18/1992 HPV/Co-Test 01/18/1992 Mammogram 2002 Cologuard 2007 Fecal Occult Blood Test 2007 Sigmoidoscopy 2007 Pneumococcal Vaccine: 50+ Years (2 of 2 - PPSV23) 11/20/2021 09/25/2021, [...] Not on filedocumented as of this encounter Care Teams Boat Ride Operator Relationship Specialty Start Date End Date Denia Calderon MD [address] [place] [address] PCP - General Family Medicine 11/12/23 documented as of this encounter
[2024-09-15] MEDS ORDERED: UPADACITINIB 15 MG TABERGR24H PO SCH (09:00)
[2024-09-15] MEDS: cefTRIAXone SODIUM 2,000 MG/50 ML BAG IV SCH (09:53)
[2024-09-15 10:09] LABS: Creatinine Clr Calc Pharmacy 40.3 ml/min; Potassium 4.7 mmol/L (3.5-5.1)
[2024-09-15] MEDS ORDERED: methylPREDNISolone 125 MG/2 ML VIAL IV ONE (14:23)
[2024-09-15] MEDS: methylPREDNISolone 60 MG in SYRINGE 0 ML IV ONE (15:17)
--- NOTE | 2024-09-15 15:45 | Hospitalist Progress Note ---
Date of Service September 15, 2024 Assessment & Plan (1) Inflammatory arthritis: (2) Ambulatory dysfunction: (3) Chronic kidney disease with active medical management without dialysis, stage 3 (moderate): (4) Cirrhosis: (5) Ulcerative pancolitis: Plan Medically complex 64 y/o woman with history of UC, inflammatory arthritis and CKD-3 with ELVI a year ago admitted with severe diffuse joint pain and stiffness, especially feet and ankles, inability to ambulate Acute on chronic inflammatory arthritis and/or polyarticular gout flare, causing severe pain and ambulatory dysfunction with inability to walk due to ankle/foot pain Acute sciatica / right lumbar pain with radicular pain - probably flaring because of need to be in bed/chair and not walking Steroid dependence with inability to wean steroids without significant flare of arthritis -methylprednisolone 60 mg IV daily until joint symptoms improve then taper - still too painful for ambulation ordered extra dose again this afternoon -continue allopurinol 100 mg daily and titrate up as outpatient. avoid colchicine with renal dysfunction -morphine 6 mg IV prn and tramadol PRN, scheduled APAP -xrays of feet/ankles reviewed and unremarkable - no e/o CPPD -continue leflunomide -continue rinvoq -SS bactrim daily for PJP ppx - held off initiation because potassium/Cr elevated, already on PPI -discussed with Dr. Mccoy - she has outpatient appt with him Thursday 1:20 pm Ulcerative colitis currently controlled on rinvoq -communicated update to Chiquis Alvarenga with [facility] Mild ELVI on CKD stage III. 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 Laughlin. Acute urinary retention - immobility and opioid effect Probable UTI - UA abnormal, culture pending -Cr up to 2, though potassium normalized and UOP has been good. Increase in Cr seems probably related to acute urinary retention and/or UTI. continue holding furosemide, consider IV fluid but will worsen edema -continue england -ceftriaxone 1g IV daily 3-5 days -AM BMP MASH related cirrhosis, AST/ALT elevated but stable hypertensionimproved after pain control in the ED, worsened by steroids, continue carvedilol hypothyroidcontinue levothyroxine edemaheld furosemide 09/14, 09/15. Has improved with england? morbid obesity BMI of 40would benefit from GLP1 agonist, would help her joint pain, AUGUSTO, and also her Jorge related cirrhosis OSAcontinue CPAP DVT ppx - enox bid PT/OT hopeful to start tomorrow Admission and Anticipated Discharge Date Admission Date: September 15, 2024 Subjective Joint pain again a little better today though feet and ankles remain too painful to try standing up Still with R lower back / sciatica pain but has improved Feels better with england catheter Physical Exam 2 Physical Exam: PHYSICAL EXAMINATION Last 24h vital signs reviewed, see documentation in flowsheet General: continues to look improved today HEENT: moist MM Lungs: Normal respiratory effort. Heart: deferred Abdomen: nondistended : england with yellow urine, good UOP Extremities: Warm, dry, well-perfused. foot/ankle edema improved. left ankle swelling improved. LE now warm and pink she has some plantar warts on her fingers bilaterally and tip of left thumb Neuro: Alert and oriented x 4, face symmetric, moves 4 extremities well Psych: Normal affect and behavior Results & Data Results & Data Vital Signs (Past 12 Hours) Vital Signs Temp Pulse Resp BP Pulse Ox O2 Del Method O2 Flow Rate 09/15/24 14:47 98.4 F 99 H 18 158/99 H 99 Room Air 09/15/24 08:30 Nasal Cannula 2 09/15/24 07:42 97.9 F 88 18 173/101 H 94 Room Air Laboratory Results 09/13/24 13:17 09/15/24 09:12 PG Care Time/CCT Total # of Minutes Spent Total Time Spent with Patient: Total time spent is greater than 50% in coordination of care (as documented) at patient's floor/unit and/or counseling patient: Coding Level of Care Code 17713 SUB INP/OBS CARE 2/35MIN Diagnoses Inflammatory arthritis M19.90 Ambulatory dysfunction R26.2 Chronic kidney disease with active medical management without dialysis, stage 3 (moderate) N18.30 Cirrhosis K74.60 Ulcerative pancolitis K51.00
[2024-09-15] MEDS: ALPRAZolam 0.5 MG TABLET PO PRN (21:58)
[2024-09-16 09:58] LABS: BUN Creatinine Ratio 33.5 (10-20); Calcium 9.8 mg/dl (8.6-10.3); Creatinine Clr Calc Pharmacy 41.6 ml/min; Potassium 4.1 mmol/L (3.5-5.1)
[2024-09-16] MEDS ORDERED: methylPREDNISolone 125 MG/2 ML VIAL IV ONE (13:15)
[2024-09-16] MEDS: methylPREDNISolone 60 MG in SYRINGE 0 ML IV ONE (14:07)
[2024-09-16] MEDS: oxyCODONE HCL IR 5 MG TAB (IMMEDIATE RELEASE) PO PRN (15:39)
--- NOTE | 2024-09-16 16:14 | Hospitalist Progress Note ---
Date of Service September 16, 2024 Assessment & Plan (1) Inflammatory arthritis: (2) Ambulatory dysfunction: (3) Chronic kidney disease with active medical management without dialysis, stage 3 (moderate): (4) Cirrhosis: (5) Ulcerative pancolitis: Plan Medically complex 64 y/o woman with history of UC, inflammatory arthritis and CKD-3 with ELVI a year ago admitted with severe diffuse joint pain and stiffness, especially feet and ankles, inability to ambulate Acute on chronic inflammatory arthritis and/or polyarticular gout flare, causing severe pain and ambulatory dysfunction with inability to walk due to ankle/foot pain Acute sciatica / right lumbar pain with radicular pain - probably flaring because of need to be in bed/chair and not walking Steroid dependence with inability to wean steroids without significant flare of arthritis -methylprednisolone 60 mg, added an afternoon dose again today -will change allopurinol to febuxostat after discussion with her wharf labourer, because of renal dysfunction. AM uric acid check -check cryoglobulins (presentation with cold extremities and improvement with steroids) though lacks typical skin findings -morphine 6 mg IV prn breakthrough pain and start oral oxycodone PRN, scheduled APAP -xrays of feet/ankles reviewed and unremarkable - no e/o CPPD -continue leflunomide -continue rinvoq -SS bactrim daily for PJP ppx - held off initiation because potassium/Cr elevated, already on PPI -follow up with Dr. Mccoy - she has outpatient appt with him Thursday 1:20 pm Ulcerative colitis currently controlled on rinvoq -communicated update to Chiquis Alvarenga with [facility] 09/14 Mild ELVI on CKD stage III. 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 Laughlin. Acute urinary retention - immobility and opioid effect Abnormal UA - possible UTI - culture with skin li. Will finish empiric treatment with three days of ceftriaxone. -Cr up to 2, though potassium normalized and UOP has been good. Increase in Cr seems probably related to acute urinary retention and/or UTI. continue holding furosemide, consider IV fluid but will worsen edema -Cr still 2 today, discussed with Dr. Laughlin, changed allopurinol to febuxostat as discussed above -continue england, voiding trial when able to be OOB to commode -AM BMP MASH related cirrhosis, AST/ALT elevated but stable hypertensionconsider increasing carvedilol hypothyroidcontinue levothyroxine edemaheld furosemide. edema has improved despite morbid obesity BMI of 40would benefit from GLP1 agonist, would help her joint pain, AUGUSTO, and also her Jorge related cirrhosis OSAcontinue CPAP DVT ppx - enox bid PT/OT Discussed with chemistry technologist - arranging primary care follow up with [facility] Admission and Anticipated Discharge Date Admission Date: September 15, 2024 Subjective Joint pain and stiffness again a little bit better today Ankle ROM improving, foot/ankle swelling improved bilaterally Has some petechia R forearm near an IV site Physical Exam 2 Physical Exam: PHYSICAL EXAMINATION Last 24h vital signs reviewed, see documentation in flowsheet General: awake and working on wallace HEENT: moist MM Lungs: Normal respiratory effort. Heart: deferred Abdomen: nondistended : eng[place] with yellow urine, good UOP Extremities: Warm, dry, well-perfused. RUE few petechia distal to an IV site. foot/ankle edema improved seems largely resolved. left>right ankle swelling significantly improved since admission. she has some plantar warts on her fingers bilaterally and tip of left thumb Neuro: Alert and oriented x 4, face symmetric, moves 4 extremities well Psych: Normal affect and behavior Results & Data Results & Data Vital Signs (Past 12 Hours) Vital Signs Temp Pulse Resp BP Pulse Ox O2 Del Method 09/16/24 15:15 98.4 F 95 H 20 148/79 H 92 Room Air 09/16/24 07:40 98.1 F 85 20 167/91 H 93 Room Air Laboratory Results 09/13/24 13:17 09/16/24 09:19 PG Care Time/CCT Total # of Minutes Spent Total Time Spent with Patient: Total time spent is greater than 50% in coordination of care (as documented) at patient's floor/unit and/or counseling patient: Coding Level of Care Code 14656 SUB INP/OBS CARE 3/50MIN Diagnoses Inflammatory arthritis M19.90 Ambulatory dysfunction R26.2 Chronic kidney disease with active medical management without dialysis, stage 3 (moderate) N18.30 Cirrhosis K74.60 Ulcerative pancolitis K51.00
[2024-09-17] MEDS: oxyCODONE HCL IR 5 MG TAB (IMMEDIATE RELEASE) PO PRN ×2 (04:17→14:00)
[2024-09-17 07:09] LABS: Hematocrit (blood only) 26.4 % (37.0-47.0); Hemoglobin 8.8 g/dl (12.0-16.0); Mean Corpuscular Hemoglobin 33.2 pg (25.0-34.0); Mean Corpuscular Hgb Conc 33.3 g/dL (32.0-36.0); Mean Corpuscular Volume 99.6 fL (80.0-100.0); Mean Platelet Volume 10.7 fL (9.4-12.4); Nucleated RBC # (auto) 0.02 K/uL (0.00-0.12); Nucleated RBC % (auto) 0.4 %; Platelet Count 115 K/uL (130-400); RDW Coefficient of Variation 13.1 % (11.5-14.5); RDW Standard Deviation 47.2 fL (36.4-46.3); Red Blood Count 2.65 M/uL (4.20-5.40); White Blood Count 4.86 K/ul (4.8-10.8)
[2024-09-17 07:34] LABS: BUN Creatinine Ratio 36.7 (10-20); Calcium 9.3 mg/dl (8.6-10.3); Creatinine Clr Calc Pharmacy 48.6 ml/min; Potassium 4.4 mmol/L (3.5-5.1); Uric Acid 10.7 mg/dl (2.6-7.2)
[2024-09-17] MEDS ORDERED: methylPREDNISolone 125 MG/2 ML VIAL IV ONE (13:40)
--- NOTE | 2024-09-17 14:56 | Hospitalist Progress Note ---
Date of Service September 17, 2024 Assessment & Plan (1) Inflammatory arthritis: (2) Ambulatory dysfunction: (3) Chronic kidney disease with active medical management without dialysis, stage 3 (moderate): (4) Cirrhosis: (5) Ulcerative pancolitis: Plan Medically complex 64 y/o woman with history of UC, inflammatory arthritis and CKD-3 with ELVI a year ago admitted with severe diffuse joint pain and stiffness, especially feet and ankles, inability to ambulate Acute on chronic inflammatory arthritis and/or polyarticular gout flare, causing severe pain and ambulatory dysfunction with inability to walk due to ankle/foot pain Acute sciatica / right lumbar pain with radicular pain - probably flaring because of need to be in bed/chair and not walking Bilateral lower extremity weakness Steroid dependence with inability to wean steroids without significant flare of arthritis -continue methylprednisolone - start tapering as soon as pain/stiffness improved enough to progress mobility -changed allopurinol to febuxostat after discussion with her tire spotter, because of renal dysfunction, and because uric acid has not come down (still 10.9-->10.7) -cryoglobulins pending (presentation with cold extremities and improvement with steroids) though lacks typical skin findings -scheduled APAP and oxycodone 10 mg prn pain, morphine prn severe pain -xrays of feet/ankles reviewed and unremarkable - no e/o CPPD -continue leflunomide -continue rinvoq -will image Lspine with MRI as soon as she can tolerate lying flat for it - (acute back pain with immunosuppression, LE weakness, urinary retention) -SS bactrim daily for PJP ppx, PPI -discussed with Dr. Mccoy Ulcerative colitis currently controlled on rinvoq -communicated update to Chiquis Alvarenga with [facility] 09/14 Mild ELVI on CKD stage III. 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 Laughlin - discussed with him 09/16. Acute urinary retention - immobility and opioid effect Abnormal UA - possible UTI - culture with skin li. Completed three days of ceftriaxone, now incidentally on bactrim for PJP ppx. -Cr improved 1.66 today -continue england, voiding trial when able to be OOB to commode hopefully in 1-2 days -AM BMP MASH related cirrhosis, AST/ALT elevated but stable hypertension increase carvedilol hypothyroidcontinue levothyroxine edemaheld furosemide. edema has resolved with england, improved renal function morbid obesity BMI of 40would benefit from GLP1 agonist, would help her joint pain, AUGUSTO, and also her Jorge related cirrhosis OSAcontinue CPAP DVT ppx - enox bid PT/OT recommended rehab - [facility]. She would strongly benefit from acute rehab stay - excellent prognosis for rehab to return to independence with aggressive PT/OT, will benefit from supervision of rehab MD because she is medically complex with inflammatory condition and CKD which is requiring close monitoring and medication adjustments, muscle weakness and urinary retention. Discussed with bull gang worker - arranging primary care follow up with [facility] Admission and Anticipated Discharge Date Admission Date: September 15, 2024 Subjective continues slowly improving. Pain now controllable with 10 mg oxycodone, though 5 ineffective. She was able to stand up with staff yesterday and transfer into the chair, plans to do that again today. ankles and plantar part of feet at MTPs remain the most painful. ankle swelling continues to improve, edema also essentially resolved. continues to have some paresthesias both feet/toes. R low back pain persists but improved. neck pain / upper back pain and stiffness resolved Physical Exam 2 Physical Exam: PHYSICAL EXAMINATION Last 24h vital signs reviewed, see documentation in flowsheet General: awake alert sitting in bed HEENT: moist MM Lungs: Normal respiratory effort. Heart: deferred Abdomen: nondistended : [place] with endy urine Extremities: Warm, dry, well-perfused. RUE few petechia distal to an IV site. foot/ankle edema resolved. left>right ankle swelling significantly improved since admission and improved overnight. R ankle without swelling at this time. TTP on MTPs on plantar side. Ankle dorsiflexion is weak bilaterally, better on R. PROM of ankles significantly improved. Was able to get feet flat on the floor when she stood. she has some plantar warts on her fingers bilaterally and tip of left thumb. no swelling or stiffness of hands/wrists Neuro: Alert and oriented x 4, face symmetric, moves 4 extremities well Psych: Normal affect and behavior Results & Data Results & Data Vital Signs (Past 12 Hours) Vital Signs Temp Pulse Pulse Resp BP BP Pulse Ox 09/17/24 07:39 185/92 H 09/17/24 07:37 98.1 F 81 14 199/102 H 94 09/17/24 03:22 86 12 96 O2 Del Method O2 Flow Rate 09/17/24 07:39 09/17/24 07:37 Room Air 09/17/24 03:22 2 Laboratory Results 09/17/24 06:43 09/17/24 06:43 PG Care Time/CCT Total # of Minutes Spent Total Time Spent with Patient: Total time spent is greater than 50% in coordination of care (as documented) at patient's floor/unit and/or counseling patient: Coding Level of Care Code 55430 SUB INP/OBS CARE 3/50MIN Diagnoses Inflammatory arthritis M19.90 Ambulatory dysfunction R26.2 Chronic kidney disease with active medical management without dialysis, stage 3 (moderate) N18.30 Cirrhosis K74.60 Ulcerative pancolitis K51.00
[2024-09-17] MEDS: methylPREDNISolone 60 MG in SYRINGE 0 ML IV ONE (15:55)
[2024-09-17] MEDS: carvediloL 12.5 MG TAB PO SCH (15:59)
--- NOTE | 2024-09-17 17:17 | Rheumatology Consultation ---
Rheumatology Consultation DOS September 17, [address] Madrigal Attending Physician Dr Madrigal Reason for Consultation inflammatory arthritis Assessment & Plan (1) Inflammatory arthritis: presented with worsening arthritis complaints, ambulatory dysfunction, numbness, and lack of ROM of foot/ankles. Already on high dose steroids, rinvoq and arava for her enteropathic arthritis. at admission noted to have uric acid > 10. do wonder about acute gout on top of enteropathic arthritis but presentation not fully consistent. unclear why she had so much pain and got deconditioned so quickly. she unfortunately is steroid dependent and using very high doses. she has gotten better with IV solumedrol but given her neurologic complaints a MRI of the L spine is warranted. I doubt an infectious etiology given her symptoms but that is always a concern given her immunocompromised state. agree with rehab placement given her deconditioning. Plan: 1. at this point can change to oral prednisone 60mg daily and would have her take this for 5 days and then taper by 10mg every 5 days until she reaches 20mg daily. keep at this dose until she sees me as an outpatient 2. agree with MRI of the L spine 3. can stop arava at this point 4. continue with uloric 5. case was discussed with hospitalist Dr Madrigal after I saw the patient 6. Thank you for involving me in this patient's care 7. I will arrange outpatient rheumatology follow up after her discharge from rehab (2) Ambulatory dysfunction: see above (3) Ulcerative pancolitis: continue rinvoq. can stop arava at this point. Plan see above History of Present Illness Reason for Consultation: inflammatory arthritis Requesting Physician: Dr Madrigal Attending Physician: Annelise Madrigal MD History of Present Illness Laura is well known to me with enteropathic arthritis. she was on humira and entivyo in the past but was switched to rinvoq last year after developing renal failure felt to be related to humira. she is followed by [facility] and Dr Laughlin [facility] nephrology. I saw her Aug 30 with worsening arthritis. she stated at that time every time she tried to taper prednisone under 20mg daily her arthritis worsened. unfortunately she has many issues related to chronic high dose steroid use including weight gain of at least 30lbs, gar[place] face, buffalo hump (cushingnoid). she started arava and tried tapering prednisone around new years but her pain started to worsen. she states her had to pull her out of the bed and help her go to the bathroom. she came to [facility] ed on thursday in severe pain especially in her lower legs. she states she could not walk. she had called me from the ED and sounds like she may need a MRI of the L spine. she has known stenosis. she denied any illness symptoms and no rashes. no diarrhea. her was not sick. labs showed uric acid >10. I was contacted on thursday by hospital staff Dr Madrigal and started treatment for gout. her voice data communications engineer wanted uloric instead of alllopurinol because of her kidney disease. she was started in IV steroids and the pain. and swelling has slowly improved. she is still not walking well and does not have much dorsiflexion of her feet. the ankle swelling is better. she had some left shoulder pain as well. she is awaiting rehab placement for PT . she is still on IV solumedrol. Dr Madrigal is working on MRI of the L spine - my need some sedation as she has been dealing with right sided low back pain since admission too. she thinks she injured it at home when her was helping francoise get up out of chairs, bed. she denies any incontinence. she reports she is much better since her admission but still has issues moving her feet. stated her feet were bluish in color with the swelling at admission but that is now better as well. Allergies Allergy/AdvReac Type Severity Reaction Status Date / Time poison gil extract Allergy Severe weeping Verified 05/20/24 11:23 sores ragweed pollen Allergy Mild ITCHY EYES Verified 05/20/24 11:23 Home Medications Medication Instructions Recorded Confirmed Type cholecalciferol (vitamin D3) 50 50 mcg PO QAM 03/21/22 09/13/24 History mcg (2,000 unit) capsule (Vitamin D3) cyanocobalamin (vitamin B-12) 1,000 mcg PO QAM 03/21/22 09/13/24 History 1,000 mcg tablet (Vitamin B-12) mirtazapine 15 mg tablet 15 mg PO HS 03/21/22 09/13/24 History montelukast 10 mg tablet 10 mg PO HS 03/21/22 09/13/24 History albuterol sulfate 90 mcg/actuation 2 puff inhalation Q6 PRN Shortness 11/12/23 09/13/24 History aerosol inhaler Of Breath Or Wheezing alprazolam 0.5 mg disintegrating 0.5 mg PO DAILY PRN Anxiety 11/12/23 09/13/24 History tablet baclofen 10 mg tablet 10 mg PO BID PRN Muscle Pain 11/12/23 09/13/24 History citalopram 20 mg tablet 20 mg PO QAM 11/12/23 09/13/24 History tramadol 50 mg tablet 50 mg PO Q6 PRN Pain 11/12/23 09/13/24 History furosemide 20 mg tablet 40 mg (2 x 20 mg) PO .COMPLEX #180 05/20/24 09/13/24 Rx tabs upadacitinib 45 mg tablet,extended 15 mg PO DAILY 07/28/24 09/13/24 History release 24 hr (Rinvoq) carvedilol 12.5 mg tablet 12.5 mg PO UD 09/13/24 09/13/24 History carvedilol 6.25 mg tablet 6.25 mg PO UD 09/13/24 09/13/24 History folic acid 1 mg tablet 1 mg PO QAM 09/13/24 09/13/24 History leflunomide 10 mg tablet 10 mg PO QAM 09/13/24 09/13/24 History levothyroxine 125 mcg tablet 125 mcg QAM 09/13/24 09/13/24 History pantoprazole 40 mg tablet,delayed 40 mg PO QAM 09/13/24 09/13/24 History release prednisone 10 mg tablet 30 mg PO DAILY 09/13/24 09/13/24 History rosuvastatin 5 mg tablet 5 mg PO DAILY 09/13/24 09/13/24 History Patient History Medical History Arthritis "IBD ARTHRITIS" Ulcerative colitis Post traumatic stress disorder History of COVID-19 05/26/22 VIA HOME TEST Surgical History History of colonoscopy History of laparoscopy [place] teeth removed Family History Other No family history of adverse response to anesthesia Social History Smoking Status: Never smoker Second Hand Exposure: Yes ( A CHILD); Do You Dip or Chew Tobacco: No; Hx Alcohol Use: Yes Alcohol type: wine Hx Substance Use: No Preferred Language: Tajik Communication Ability: Effective Visual Impairment: No Limitations Hearing Ability: Normal Division Service Manager Required: No Beliefs That Will Affect Care: None marital status: Current Living Situation: Spouse current occupational status: retired Feels Safe at Home: Yes Safety Concerns: Feels Safe At This Time Diet: ideal protein, low salt and other Diet Comment: no phosphorus, limited dairy, lean proteins Seatbelt Use: always Assistive Devices: Walker Review of Systems Constitutional: weight gain Eyes: normal Ear, Nose, Mouth, Throat: normal Respiratory: normal Cardiovascular: Additional Comments: normal Gastrointestinal: normal Genitourinary: has catheter Musculoskeletal: see above Integumentary: no rashes Neurologic: numbness Physical Exam Constitutional: NAD sitting up in chair ENMT: normal mucosa, moist, no ulcers Respiratory: CTA B/l no wheezes Cardiovascular: Rate/Rhythm: regular rate and regular rhythm Heart Sounds: normal S1 and normal S2 Gastrointestinal (Abdomen): Soft, NT ND + BS Musculoskeletal: no synovitis noted of the hands. ? trace synovitis of the MTPs, ankles. poor dorsiflexion of both feet. poor motion of the toes. tender to palpation of both feet and ankles. no knee effusions. hip flexor strength was 3/5. deltoid strength 5/5 Skin: no rashes, warts noted both hands Results & Data Vital Signs (Past 12 Hours) Vital Signs Temp Pulse Resp BP BP Pulse Ox O2 Del Method 09/17/24 15:47 37.0 C 88 18 175/93 H 94 Room Air 09/17/24 07:39 185/92 H 09/17/24 07:37 36.7 C 81 14 199/102 H 94 Room Air Laboratory Results reviewed Diagnostic Findings reviewed
[2024-09-18 07:05] LABS: BUN Creatinine Ratio 35.9 (10-20); Calcium 9.3 mg/dl (8.6-10.3); Creatinine Clr Calc Pharmacy 52.7 ml/min; Potassium 4.6 mmol/L (3.5-5.1)
[2024-09-18] MEDS: FEBUXOSTAT 40 MG TABLET PO SCH (08:53)
[2024-09-18] MEDS: SULFA/TRIMETH 400/80MG TAB PO SCH (09:02)
--- NOTE | 2024-09-18 14:19 | Hospitalist Progress Note ---
Date of Service September 18, 2024 Assessment & Plan (1) Inflammatory arthritis: (2) Ambulatory dysfunction: (3) Chronic kidney disease with active medical management without dialysis, stage 3 (moderate): (4) Cirrhosis: (5) Ulcerative pancolitis: Plan Medically complex 64 y/o woman with history of UC, inflammatory arthritis and CKD-3 with ELVI a year ago admitted with severe diffuse joint pain and stiffness, especially feet and ankles, inability to ambulate Acute on chronic inflammatory arthritis and/or polyarticular gout flare, causing severe pain and ambulatory dysfunction with inability to walk due to ankle/foot pain Acute sciatica / right lumbar pain with radicular pain - probably flaring because of need to be in bed/chair and not walking Bilateral lower extremity weakness Steroid dependence with inability to wean steroids without significant flare of arthritis -continue steroids - 60 mg today, slow taper (recs in 09/17 Rheum note) -continue febuxostat as discussed with her granulator operator -cryoglobulins pending (presentation with cold extremities and improvement with steroids) though lacks typical skin findings -scheduled APAP and oxycodone 10 mg prn pain, morphine prn severe pain -xrays of feet/ankles reviewed and unremarkable - no e/o CPPD -stopped leflunomide as discussed with Rheum -continue rinvoq -will image Lspine with MRI as soon as she can tolerate lying flat for it - (acute back pain with immunosuppression, LE weakness, urinary retention) -SS bactrim daily for PJP ppx (expect Cr increase, caution for hyperkalemia), PPI Ulcerative colitis currently controlled on rinvoq -communicated update to Chiquis Alvarenga with [facility] 09/14 Mild ELVI on CKD stage III. 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 Laughlin - discussed with him 09/16. Acute urinary retention - immobility and opioid effect Abnormal UA - possible UTI - culture with skin li. Completed three days of ceftriaxone, now incidentally on bactrim for PJP ppx. -Cr improved 1.5 today from max of 2 -continue england, voiding trial when able to be OOB to commode hopefully in 1-2 days -AM BMP MASH related cirrhosis, AST/ALT elevated but stable hypertension increased carvedilol 09/17 BP improved and not bradycardic hypothyroidcontinue levothyroxine edemaheld furosemide. edema has resolved with eng[place], improved renal function morbid obesity BMI of 40would benefit from GLP1 agonist, would help her joint pain, AUGUSTO, and also her Jorge related cirrhosis OSAcontinue CPAP DVT ppx - enox bid PT/OT recommended rehab - [facility]. She would strongly benefit from acute rehab stay - excellent prognosis for rehab to return to independence with aggressive PT/OT, will benefit from supervision of rehab MD because she is medically complex with inflammatory condition and CKD which is requiring close monitoring and medication adjustments, muscle weakness and urinary retention. Updated her at bedside 09/17, discussed with Dr. Mccoy 09/17 railway shunter - arranging primary care follow up with [facility] Admission and Anticipated Discharge Date Admission Date: September 15, 2024 Subjective today notes that foot/ankle mobility has improved substantially on the right and somewhat on the left. L>R ankle/foot swelling slowly improving now can dorsi/plantarflex with nearly normal ROM on R can dorsiflex to 10-15 degrees on L (previously none, even yesterday) no edema of calves R back pain present but improving Physical Exam 2 Physical Exam: PHYSICAL EXAMINATION Last 24h vital signs reviewed, see documentation in flowsheet General: awake alert sitting in bed HEENT: moist MM Lungs: Normal respiratory effort. CTAB no rrw Heart: Reg no mrg Abdomen: nondistended nontender : england with endy urine - a little build master today Extremities: UE normal but with some sarcopenia, LE without any pitting edema. Some mild R ankle/foot swelling and mod on L but continuously improving, no warmth. Improved ROM both feet/ankles as noted above she has some plantar warts on her fingers bilaterally and tip of left thumb. no swelling or stiffness of hands/wrists Neuro: Alert and oriented x 4, face symmetric, moves 4 extremities well Psych: Normal affect and behavior Results & Data Results & Data Vital Signs (Past 12 Hours) Vital Signs Temp Pulse Pulse Resp BP BP Pulse Ox 09/18/24 08:50 76 160/83 H 09/18/24 07:42 204/99 H 09/18/24 07:07 98.2 F 79 18 194/111 H 95 09/18/24 02:26 68 16 97 O2 Del Method O2 Flow Rate 09/18/24 08:50 09/18/24 07:42 09/18/24 07:07 Room Air 09/18/24 02:26 2 Laboratory Results 09/17/24 06:43 09/18/24 05:41 PG Care Time/CCT Total # of Minutes Spent Total Time Spent with Patient: Total time spent is greater than 50% in coordination of care (as documented) at patient's floor/unit and/or counseling patient: Coding Level of Care Code 21012 SUB INP/OBS CARE 2/35MIN Diagnoses Inflammatory arthritis M19.90 Ambulatory dysfunction R26.2 Chronic kidney disease with active medical management without dialysis, stage 3 (moderate) N18.30 Cirrhosis K74.60 Ulcerative pancolitis K51.00
[2024-09-18] MEDS ORDERED: POLYETHYLENE (MIRALAX) 17 GM PACK PO PRN (15:36)
[2024-09-18] MEDS: SIMETHICONE 80 MG CHEW PO PRN (16:04)
[2024-09-19 08:53] LABS: BUN Creatinine Ratio 32.9 (10-20); Calcium 9.2 mg/dl (8.6-10.3); Creatinine Clr Calc Pharmacy 53.1 ml/min
[2024-09-19] MEDS: MoRPHine SULFATE 10 MG/ML CARP/VIAL IV ONE (11:49)
[2024-09-19] MEDS: FUROSEMIDE 20 MG TAB PO SCH (13:06)
--- NOTE | 2024-09-19 13:16 | Magnetic Resonance Report ---
MR lumbar spine wo con CLINICAL HISTORY: 64 years-old Female with back pain, leg weakness, urinary ret, immunosuppre. COMPARISON: CT lumbar spine 03/21/2022. TECHNIQUE: Multiplanar, multi sequence MRI of the lumbar spine was performed without intravenous cont rast. FINDINGS: Edema noted within the posterior paraspinal musculature and paraspinal tissues, likely chronic. Conus medullaris terminates at the T12-L1 level. Normal signal within the imaged lower thoracic spinal cor d. No acute fracture, subluxation or endplate erosion. There is ill-defined focus of fluid within the posterior epidural space at L3-L4 measuring up to 3.6 cm length, dimension on image 9 series 6 measu ring up to 7 x 4 mm in transverse and AP dimensions. No drainable fluid collections. Mild multilevel intervertebral disc space narrowing and spondylotic spurring with moderate to severe facet arthrosis. Mild diffuse epidural lipomatosis posteriorly. T12-L1: No central canal or neural foraminal stenosis. L1-L2: No central canal or neural foraminal stenosis. L2-L3: Small posterior annular disc bulge. Ligamentum flavum thickening with moderate facet arthrosi s and posterior epidural lipomatosis. Central canal and left neural foramen are patent. Ckad-mo-xzniz ate right foraminal narrowing. L3-L4: Mild intervertebral disc space narrowing and spondylotic spurring. Posterior epidural lipomat osis with posterior epidural fluid as above. Severe facet arthrosis with ligamentum flavum thickening and left greater than right facet effusions. Moderate central canal stenosis with AP dimension of th e thecal sac measuring 7 mm which is mostly from the facet arthrosis and ligamentum flavum thickening . Minimal inferior bilateral foraminal narrowing. L4-L5: Mild intervertebral disc space narrowing and spondylotic spurring. Posterior epidural lipomat osis with ligamentum flavum thickening and severe facet arthrosis. Small facet effusions with 10 mm s ynovial cyst posterior to the left facet/laminar. Mild facet arthrosis with AP dimension of the theca l sac measuring 9 mm. Moderate right with mild to moderate left foraminal narrowing. L5-S1: Mild intervertebral disc space narrowing and spondylotic spurring. Posterior disc bulge with annular fissure, eccentric to the right lateral recess and right neural foramen. Epidural lipomatosis . Mild central canal stenosis. Moderate narrowing of the right lateral recess with abutment of the ri ght S1 nerve root. Mild bilateral foraminal narrowing. IMPRESSION: 1. Focus of ill-defined fluid within the posterior epidural space at L3-L4 is likely related to synov ial cyst rupture associated with the severe facet arthrosis and left facet effusion. Less likely diff erential considerations would include infectious phlegmon versus small epidural hematoma. If symptoms persist, follow-up MRI with and without IV contrast may be considered. 2. Mostly mild discogenic degeneration and spondylotic spurring with moderate to severe facet arthros is as detailed above resulting in multilevel central canal and foraminal stenosis. 3. No acute fracture or bone marrow edema. ACT 112: Negative or not required by law. The above report was generated using voice recognition software. It may contain grammatical, syntax o r spelling errors. Electronically signed by: Don Martinez M.D. 09/19/2024 1:15 PM
--- NOTE | 2024-09-19 19:19 | Hospitalist Progress Note ---
Date of Service September 19, 2024 Assessment & Plan (1) Inflammatory arthritis: (2) Ambulatory dysfunction: (3) Chronic kidney disease with active medical management without dialysis, stage 3 (moderate): (4) Cirrhosis: (5) Ulcerative pancolitis: Plan Medically complex 64 y/o woman with history of UC, inflammatory arthritis and CKD-3 with ELVI a year ago admitted with severe diffuse joint pain and stiffness, especially feet and ankles, inability to ambulate #Acute on chronic inflammatory arthritis and/or polyarticular gout flare, causing severe pain and ambulatory dysfunction with inability to walk due to ankle/foot pain Acute sciatica / right lumbar pain with radicular pain - probably flaring because of need to be in bed/chair and not walking Bilateral lower extremity weakness Steroid dependence with inability to wean steroids without significant flare of arthritis -continue steroids - 60 mg pred today, slow taper (recs in 09/17 Rheum note) -continue febuxostat as 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 not sent, reordered -scheduled APAP and oxycodone 10 mg prn pain, morphine prn severe pain -xrays of feet/ankles reviewed and unremarkable - no e/o CPPD -stopped leflunomide as discussed with Rheum -continue rinvoq -Lspine MRI completed 09/19 - moderate LSS and some moderate foraminal stenoses - would account for L3/4/5 radicular pain flare - known issue. Fluid collection posterior to L3/4 may be synovial cyst rupture associated with severe facet joint arthrosis and L facet effusion, ddx phlegmon or epidural hematoma. Discussed with Carmella today. Doubt phlegmon/hematoma but Lspine should be reimaged if worsening of symptoms. -SS bactrim daily for PJP ppx (expect Cr increase, caution for hyperkalemia), PPI # Mild ELVI on CKD stage III. 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 Laughlin - discussed with him 09/16. Acute urinary retention - immobility and opioid effect - passed voiding trial 09/19 [place] removed Abnormal UA - possible UTI - culture with skin li. Completed three days of ceftriaxone, now incidentally on bactrim for PJP ppx. -Cr improved remains 1.5 today from max of 2 -resume low dose oral lasix for edema, hypertension -AM BMP # Ulcerative colitis currently controlled on rinvoq -communicated update to Chiquis Alvarenga with [facility] 09/14 -constipation resolved # MASH related cirrhosis, AST/ALT elevated but stable # hypertension increased carvedilol 09/17 BP improved and not bradycardic. Resumed lasix 09/19. assess response to diuretic and high dose steroid effect wearing off by tomorrow Other chronic issues: hypothyroidcontinue levothyroxine morbid obesity BMI of 40would benefit from GLP1 agonist, would help her joint pain, AUGUSTO, and also her Jorge related cirrhosis OSAcontinue CPAP DVT ppx - enox bid PT/OT recommended rehab - [facility]. She would strongly benefit from acute rehab stay - excellent prognosis for rehab to return to independence with aggressive PT/OT, will benefit from supervision of rehab MD because she is medically complex with inflammatory condition and CKD which is requiring close monitoring and medication adjustments, muscle weakness and urinary retention. Updated her at bedside 09/17, discussed with Dr. Mccoy 09/17 family nurse practitioner - arranging primary care follow up with Susana [facility]ORT Admission and Anticipated Discharge Date Admission Date: September 15, 2024 Subjective Continues slow steady improvement ROM improved both ankles/toes Able to walk short distance in HW with PT today, able to get into chair and to restroom Rt LBP continues improving Still some paresthesias in feet especially L [place] removed and able to urinate Physical Exam 2 Physical Exam: PHYSICAL EXAMINATION Last 24h vital signs reviewed, see documentation in flowsheet General: sitting up in the chair HEENT: moist MM Lungs: Normal respiratory effort Heart: deferred Abdomen: nondistended : [place] with yellow urine Extremities: UE normal but with some sarcopenia, LE with trace pitting edema. Some L>R ankle joint and foot swelling continues improving, no warmth. Much improved ROM both feet/ankles - dorsiflexion recovering bilaterally she has some plantar warts on her fingers bilaterally and tip of left thumb. Also on toe. no swelling or stiffness of hands/wrists Neuro: Alert and oriented x 4, face symmetric, moves 4 extremities well Psych: Normal affect and behavior Results & Data Results & Data Vital Signs (Past 12 Hours) Vital Signs Temp Pulse Resp BP BP Pulse Ox O2 Del Method 09/19/24 16:25 97.5 F L 87 16 167/91 H 95 Room Air 09/19/24 11:20 155/91 H 09/19/24 07:39 98.6 F 80 16 198/81 H 96 Room Air Laboratory Results 09/17/24 06:43 09/19/24 07:47 PG Care Time/CCT Total # of Minutes Spent Total Time Spent with Patient: Total time spent is greater than 50% in coordination of care (as documented) at patient's floor/unit and/or counseling patient: Coding Level of Care Code 97969 SUB INP/OBS CARE 3/50MIN Diagnoses Inflammatory arthritis M19.90 Ambulatory dysfunction R26.2 Chronic kidney disease with active medical management without dialysis, stage 3 (moderate) N18.30 Cirrhosis K74.60 Ulcerative pancolitis K51.00
[2024-09-20] MEDS: predniSONE 20 MG TAB PO SCH (08:13)
[2024-09-20 08:31] LABS: BUN Creatinine Ratio 30.4 (10-20); Calcium 9.5 mg/dl (8.6-10.3); Creatinine Clr Calc Pharmacy 47.2 ml/min; Potassium 4.1 mmol/L (3.5-5.1)
--- NOTE | 2024-09-20 14:09 | Hospitalist Progress Note ---
Date of Service September 20, 2024 Assessment & Plan (1) Inflammatory arthritis: Plan: patient presented with severe b/l foot & ankle pain history/exam c/w acute on chronic inflammatory arthritis - either 2nd to IBD- related arthritis vs gout vs other Steroid-dependent for about a year - HIGH dose (has not been able to wean <20mg/day) Currently on steroid burst - 60mg/day - with improving inflammatory arthropathy Dr Mccoy from [facility] saw in consult 09/17/24 recs: 1. cont prednisone 60mg daily and taper every 5 days by 10mg until she reaches 20mg daily; stay on 20mg/day until seen by outpatient rheum 2. stop arava 3. continue with uloric for elevated uric acid levels & possibility of gout contributing to clinical picture Of note - cryoglobulins sent/pending (presentation with cold extremities and improvement with steroids) although exam not c/w vasculitic type picture cont SS bactrim daily for PJP ppx (2) Degenerative lumbar spinal stenosis: Plan: Lumbar spine MRI 09/19/24 with facet arthrosis, synovial cyst at L3-L4, spinal stenosis multiple levels - considerable DJD overall MRI obtained due to low back pain with right leg radicular pain earlier in the stay - now improved did ask Dr Weber from ortho-spine to consult given the imaging findings (to ensure no infectious process, etc) he will look at films and see her tomorrow (3) Ambulatory dysfunction: Plan: combination of polyarticular inflammatory arthritis (either IBD-related and/or gouty arthritis) + l-spine DJD improving cont PT/OT will Tx to [facility] at discharge (4) Chronic kidney disease with active medical management without dialysis, stage 3 (moderate): Plan: baseline Cr mid 1's baseline CrCl 40s BMP am for stability 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 Laughlin (previous hospitalist discussed her care with him 09/16) had urinary retention requiring eng[place] placement earlier in the stay - now resolved, eng[place] out (5) Cirrhosis: Plan: 2nd MASH cont daily lasix cont coreg BID (6) Ulcerative pancolitis: Plan: follows with [facility] currently on Rinvoq controlled at this time (7) ELVI (acute kidney injury): Plan: peak Cr 2 now 1.7 baseline ~1.5 to 1.7 ELVI resolved Plan hypothyroidcontinue levothyroxine; TSH was low in April 2024; will repeat in am morbid obesity BMI of 43 OSAcontinue CPAP DVT ppx - enox BID Edema of legs, LLE>RLE -- multiple DVT risk factors (IBD, cirrhosis, etc) - will check dopplers, r/o DVT ?neuropathy of feet b/l - 2nd to l-spine disease? other? previous B12 level wnl consider neuro consult post-d/c if cleared by ortho-spine tomorrow can likely d/c to [facility] on 09/21 Admission and Anticipated Discharge Date Admission Date: September 15, 2024 Subjective patient continues to feel better each day RLE radicular pain & low back pain are all improved she is ambulating more comfortably b/l foot pain improved worst pain is over the ball of the foot near the first MTP joints b/l feet/ankles/shins - edema MUCH improved does have numbness in b/l feet - mainly the toes - worse in the left foot Review of Systems Review of Systems: cv - no chest pain pulm - no dyspnea GI - no abd pain or N/V; moving bowels Physical Exam Physical Exam: gen - obese, NAD, very pleasant mouth - no thrush; MMM neck - no JVD heart - RRR, s1 s2, no murmur lungs - CTA b/l abd - soft NT ND BS+ musculo - mild synovitis b/l first MTP joints; no ankle synovitis; no knee/shoulder/wrist synovitis ext - trace edema, worse left carrizales; left calf is larger than the right calf; pulses b/l feet 2+ neuro - strength 5/5 b/l hip flexion; ankle dorsiflexion/plantarflexion near 5/5 b/l Results & Data Results & Data Vital Signs (Past 12 Hours) Vital Signs Temp Pulse Pulse Resp BP BP Pulse Ox 09/20/24 09:08 159/84 H 09/20/24 07:51 36.9 C 76 16 179/101 H 96 09/20/24 07:15 09/20/24 03:40 78 12 96 O2 Del Method O2 Flow Rate 09/20/24 09:08 09/20/24 07:51 Room Air 09/20/24 07:15 Room Air 09/20/24 03:40 2 Laboratory Results Laboratory Results - last 24 hr 09/20/24 07:48 Sodium 139 Potassium 4.1 Chloride 101 Carbon Dioxide 31 Anion Gap 7 BUN 52 H Creatinine 1.71 H Est Cr Clr Drug Dosing 47.2 eGFR 33.46 BUN/Creatinine Ratio 30.4 H Glucose 131 H Calcium 9.5 Cryoglobulin Pending Cryoglobulin Cryocrit Pending PG Care Time/CCT Total # of Minutes Spent Total Time Spent with Patient: Total time spent is greater than 50% in coordination of care (as documented) at patient's floor/unit and/or counseling patient: Coding Level of Care Code 39022 SUB INP/OBS CARE 3/50MIN Diagnoses Inflammatory arthritis M19.90 Degenerative lumbar spinal stenosis M48.061 Ambulatory dysfunction R26.2 Chronic kidney disease with active medical management without dialysis, stage 3 (moderate) N18.30 Cirrhosis K74.60 Ulcerative pancolitis K51.00 ELVI (acute kidney injury) N17.9
--- NOTE | 2024-09-20 16:29 | Ultrasound Report ---
INDICATION: Leg swelling. COMPARISON: None available. TECHNIQUE: Multiple longitudinal and transverse sonographic images of the left and right lower extremity were obtained in conjunction with duplex Doppler sonography and serial compression through the left and right common femoral, superficial femoral, popliteal, and where possible visualized proximal calf veins. FINDINGS: The abovementioned veins demonstrate normal compressibility, flow and an appropriate augmentation response where possible. IMPRESSION: No evidence of deep venous thrombosis within the visualized bilateral lower extremities. Electronically signed by Dominguez Lugo 09-20-2024 4:28 PM
[2024-09-21 03:27] VITALS: RESP 16
[2024-09-21 08:32] LABS: Hematocrit (blood only) 29.2 % (37.0-47.0); Hemoglobin 9.6 g/dl (12.0-16.0); Mean Corpuscular Hemoglobin 33.3 pg (25.0-34.0); Mean Corpuscular Hgb Conc 32.9 g/dL (32.0-36.0); Mean Corpuscular Volume 101.4 fL (80.0-100.0); Mean Platelet Volume 10.4 fL (9.4-12.4); Nucleated RBC # (auto) 0.02 K/uL (0.00-0.12); Nucleated RBC % (auto) 0.2 %; Platelet Count 148 K/uL (130-400); RDW Coefficient of Variation 13.4 % (11.5-14.5); RDW Standard Deviation 50.4 fL (36.4-46.3); Red Blood Count 2.88 M/uL (4.20-5.40)
[2024-09-21 08:50] LABS: BUN Creatinine Ratio 30.3 (10-20); C Reactive Protein 0.84 mg/dl (0-0.5); Calcium 9.5 mg/dl (8.6-10.3); Potassium 4.3 mmol/L (3.5-5.1)
[2024-09-21 09:05] LABS: Thyroid Stimulating Hormone 0.439 uIu/ml (0.300-4.500)
[2024-09-21 09:11] LABS: Ferritin 633.3 ng/ml (8-388)
--- NOTE | 2024-09-21 12:54 | Orthopedic Consultation ---
Date of Consultation September 21, 2024 Assessment & Plan (1) Degenerative lumbar spinal stenosis: Assessment lumbar spinal stenosis. Plan at this time at length yesterday with patient reviewing MRI findings and clinical course. This time she does have evidence of spinal stenosis most impressive at L3-L4. I do appreciate evidence of facet hypertrophy with facet cyst. She however demonstrates no clear radicular component or symptoms consistent with neural compression. At this point she is going to rehab. She has improved. Will see her in our office in the next 2 to 3 months to assess her progress. Lastly there is nothing in her presentation or exam that indicates lumbar infection. History of Present Illness Reason for Consultation: Back and leg pain Attending Physician: Ryan Deleon MD History of Present Illness This is a very pleasant 64-year-old female who presents to the hospital with an episode of some modest back pain but most significantly pain involving her bilateral feet to the point that she was unable to ambulate secondary to discomfort. Upon my evaluation today the symptoms have improved. She is in the chair at the bedside. She states the pain was in the metatarsal joints. Is worse with weightbearing. Again she is improved significantly since admission. She denies any clear radicular complaints denies any neurogenic claudicatory complaints. States the back pain is modest in nature at this time. Allergies Allergy/AdvReac Type Severity Reaction Status Date / Time poison gil extract Allergy Severe weeping Verified 05/20/24 11:23 sores ragweed pollen Allergy Mild ITCHY EYES Verified 05/20/24 11:23 Home Medications Medication Instructions Recorded Confirmed Type cholecalciferol (vitamin D3) 50 50 mcg PO QAM 03/21/22 09/13/24 History mcg (2,000 unit) capsule (Vitamin D3) cyanocobalamin (vitamin B-12) 1,000 mcg PO QAM 03/21/22 09/13/24 History 1,000 mcg tablet (Vitamin B-12) mirtazapine 15 mg tablet 15 mg PO HS 03/21/22 09/13/24 History montelukast 10 mg tablet 10 mg PO HS 03/21/22 09/13/24 History albuterol sulfate 90 mcg/actuation 2 puff inhalation Q6 PRN Shortness 11/12/23 09/13/24 History aerosol inhaler Of Breath Or Wheezing alprazolam 0.5 mg disintegrating 0.5 mg PO DAILY PRN Anxiety 11/12/23 09/13/24 History tablet baclofen 10 mg tablet 10 mg PO BID PRN Muscle Pain 11/12/23 09/13/24 History citalopram 20 mg tablet 20 mg PO QAM 11/12/23 09/13/24 History tramadol 50 mg tablet 50 mg PO Q6 PRN Pain 11/12/23 09/13/24 History furosemide 20 mg tablet 40 mg (2 x 20 mg) PO .COMPLEX #180 05/20/24 09/13/24 Rx tabs upadacitinib 45 mg tablet,extended 15 mg PO DAILY 07/28/24 09/13/24 History release 24 hr (Rinvoq) carvedilol 12.5 mg tablet 12.5 mg PO UD 09/13/24 09/13/24 History carvedilol 6.25 mg tablet 6.25 mg PO UD 09/13/24 09/13/24 History folic acid 1 mg tablet 1 mg PO QAM 09/13/24 09/13/24 History leflunomide 10 mg tablet 10 mg PO QAM 09/13/24 09/13/24 History levothyroxine 125 mcg tablet 125 mcg QAM 09/13/24 09/13/24 History pantoprazole 40 mg tablet,delayed 40 mg PO QAM 09/13/24 09/13/24 History release prednisone 10 mg tablet 30 mg PO DAILY 09/13/24 09/13/24 History rosuvastatin 5 mg tablet 5 mg PO DAILY 09/13/24 09/13/24 History Patient History Medical History Arthritis "IBD ARTHRITIS" Ulcerative colitis Post traumatic stress disorder History of COVID-19 05/26/22 VIA HOME TEST Surgical History History of colonoscopy History of laparoscopy [place] teeth removed Family History Other No family history of adverse response to anesthesia Social History Smoking Status: Never smoker Second Hand Exposure: Yes ( A CHILD); Do You Dip or Chew Tobacco: No; Hx Alcohol Use: Yes Alcohol type: wine Hx Substance Use: No Preferred Language: Malawian Communication Ability: Effective Visual Impairment: No Limitations Hearing Ability: Normal Ancillary Services Manager Required: No Beliefs That Will Affect Care: None marital status: Current Living Situation: Spouse current occupational status: retired Feels Safe at Home: Yes Safety Concerns: Feels Safe At This Time Diet: ideal protein, low salt and other Diet Comment: no phosphorus, limited dairy, lean proteins Seatbelt Use: always Assistive Devices: Walker Physical Exam Physical Exam: On exam she is in the chair at the bedside. She is comfortable. As no pain to palpation of the lower extremities. She has full sensation to cold and light touch. She has reasonable plantarflexion dorsiflexion bilaterally. Deep tendon reflexes diminished. Results & Data Vital Signs (Past 12 Hours) Vital Signs Pulse Pulse Resp BP Pulse Ox O2 Del Method 09/21/24 08:42 86 154/79 H 09/21/24 07:25 Room Air 09/21/24 03:24 68 16 96
[2024-09-21] MEDS: ALPRAZolam 0.5 MG TABLET PO STA (13:46)
--- NOTE | 2024-09-21 13:51 | Discharge Summary ---
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 cont prednisone 60mg daily and taper every 5 days by 10mg until she reaches 20mg daily; stay on 20mg/day until seen by outpatient rheum 2. stop arava 3. continue with uloric for elevated uric acid levels & possibility of gout contributing to clinical picture Of note - cryoglobulins sent/pending (presentation with cold extremities and improvement with steroids) although exam not c/w vasculitic type picture cont SS bactrim daily for PJP ppx (2) Degenerative lumbar spinal stenosis: Lumbar spine MRI 09/19/24 with facet arthrosis, synovial cyst at L3-L4, spinal stenosis multiple levels - considerable DJD overall MRI obtained due to low back pain with right leg radicular pain earlier in the stay - now improved did ask Dr Weber from ortho-spine to consult given the imaging findings (to ensure no infectious process, etc) he will look at films and see her tomorrow (3) Ambulatory dysfunction: combination of polyarticular inflammatory arthritis (either IBD-related and/or gouty arthritis) + l-spine DJD improving cont PT/OT will Tx to [facility] at discharge (4) Chronic kidney disease with active medical management without dialysis, stage 3 (moderate): baseline Cr mid 1's baseline CrCl 40s BMP am for stability 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 other? 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 That required stopping her Biologics which had previously been effective on her UC and arthritis. She was started on Rinvoq this summer, initially on loading dose of 45 mg daily and steroids were able to be tapered as low as 5 mg prednisone at that time. At 5 mg she had flare of arthritis symptoms and dose had to be increased. Since then she has had several rounds of trying to taper steroids, with recurrent joint pain symptoms each time. Recently on very slow taper since May. Reduced from 30 mg to 20 mg a week ago and leflunomide 10 mg was started. Within three days of decreasing prednisone she had significant increase in joint pain, especially both feet and ankles, to the point now that she is unable to ambulate and her has basically had to carry her around the house. She is having severe pain in both feet and ankles and they feel cold to her, though her reports they have been warm to touch. She has had L>R ankle joint swelling and has pain in metatarsal heads. No 1st MTP pain per se. She has element of pain and stiffness all over. Hands and elbows relatively spared and has been able to wallace. She has neck, tspine and lspine pain and stiffness. She's having right low back pain with radiation to right buttock. Her bowel symptoms are close to baseline with several loose stools per day, no blood, has had few episodes of bowel incontinence mainly caused by reduced mobility. Symptoms are worse in the morning, but currently severe all day long. She says she does have a history of a gout flare in the past that was treated with colchicine, though not recent. no eye pain or redness, has noticed some blurred vision while reading recently Discharge Exam gen - obese, NAD, very pleasant mouth - no thrush; MMM neck - no JVD heart - RRR, s1 s2, no murmur lungs - CTA b/l abd - soft NT ND BS+ musculo - mild synovitis b/l first MTP joints; no ankle synovitis; no knee/shou lder/wrist synovitis ext - trace edema, worse left carrizales; left calf is larger than the right calf; pulses b/l feet 2+ neuro - strength 5/5 b/l hip flexion; ankle dorsiflexion/plantarflexion near 5/5 b/l Discharge Plan Discharge Items Patient Disposition: Transfer Inpatient Rehab Fac Reason For Visit: INFLAMMATORY ARTHRITIS, AMBULATORY DYSFUNCTION Discharge Diagnosis: 1. inflammatory arthritis - improving; due to IBD? gout? combination of factors? 2. ulcerative colitis 3. hypothyroidism 4. chronic kidney disease 5. steroid-induced hyperglycemia (hba1c 7% in 2023) 6. cirrhosis 7. anxiety 8. sleep apnea 9. lumbar degenerative joint disease Activity: Resume your previous activity Non-emergency contact: Primary Care Provider and Specialist Call non-emergency contact if: you have any medication questions, your symptoms worsen, your pain is not controlled, your pain is worsening, your pain is unusual for you and your pain is concerning for you Follow-up/Referrals: Tyree Weber DO [Surgeon] - (2-3 months; follow-up for lumbar DJD ) Tyree Young DO [Physician] - (2-4 weeks; follow-up of inflammatory arthritis - new patient ) Denia Calderon MD [Primary Care Provider] - Diet: Carb Consistent or DM2 Addtl Attending Provider Instructions: Mrs Trevizo was hospitalized due to severe polyarticular inflammatory arthritis, mainly of multiple joints of the legs (ankles, feet, etc). She responded well to higher amounts of prednisone therapy. The arthritis is either due to Inflammatory Bowel Disease (IBD) and/or gout. She also had low back pain and some right leg pain which may have been due to lumbar degenerative joint disease. The back pain and right leg pain have improved as well. She was seen by rheumatology and ortho-spine. Rheumatology advised slow taper of prednisone starting at 60mg/day and decreasing by 10mg every 5 days until 20mg/day is reached. Mrs Trevizo should stay on the 20mg/day of prednisone until seen by [facility]. Ortho-spine (Dr Weber) advises follow-up in the ortho clinic in 2-3 months for recheck of her lumbar spine. Recommendations - 1. PT/OT - eval & Rx 2. Check BSGs at least twice daily 3. Check CBC, BMP, and magnesium in 4-5 days for stability 4. As long as Mrs Trevizo is on 20mg of prednisone per day or more she should remain on once daily Bactrim SS for pneumocystis prophylaxis; please follow creatinine and potassium levels as needed while on such 5. f/u Dr Bashir Young, [facility], in 2-3 weeks - she will be a new patient to Dr Young 6. psychology consult for anxiety management 7. STOP Leflunomide It was our pleasure to care for Mrs Trevizo! Pending Studies at Discharge: Yes Studies:: Cryoglobulins Stand-Alone Forms: [facility] Skilled Items Patient informed of condition?: Yes DNR: No Discharge Level of Care: Acute rehab Communicable Disease: No Discharge Prognosis: Stable Lines: None Urinary Catheter: No Medications and DC Order Prescriptions: New sulfamethoxazole-trimethoprim [Bactrim] 400-80 mg Tablet 1 tab PO DAILY Qty: 30 1RF Rx Instructions: for pneumocystis prophylaxis while on high-dose prednisone melatonin 3 mg Tablet 3 mg PO HS PRN (Reason: sleep) Qty: 30 0RF oxycodone 5 mg Tablet 10 mg PO Q4H PRN (Reason: pain) Qty: 10 0RF enoxaparin [Lovenox] 40 mg/0.4 mL Syringe 40 mg subcut Q12H 14 Days Qty: 11.2 0RF febuxostat [Uloric] 40 mg Tablet 40 mg PO DAILY Qty: 30 0RF Continued Rinvoq 45 mg tablet extended release 24 hr 15 mg PO DAILY cyanocobalamin (vitamin B-12) [Vitamin B-12] 1,000 mcg Tablet 1,000 mcg PO QAM cholecalciferol (vitamin D3) [Vitamin D3] 50 mcg (2,000 unit) Capsule 50 mcg PO QAM montelukast 10 mg tablet 10 mg PO HS mirtazapine 15 mg tablet 15 mg PO HS pantoprazole 40 mg tablet,delayed release (DR/EC) 40 mg PO QAM folic acid 1 mg tablet 1 mg PO QAM rosuvastatin 5 mg tablet 5 mg PO DAILY levothyroxine 125 mcg Tablet 125 mcg QAM albuterol sulfate 90 mcg/actuation HFA aerosol inhaler 2 puff INHALATION Q6 PRN (Reason: Shortness Of Breath Or Wheezing) Rx Instructions: last filled december 2023 citalopram 20 mg tablet 20 mg PO QAM baclofen 10 mg Tablet 10 mg PO BID PRN (Reason: Muscle Pain) carvedilol 12.5 mg tablet 12.5 mg PO BIDM Qty: 0 0RF Rx Instructions: 12.5 mg po bid. filled 08/02 90 day supply Changed furosemide 20 mg tablet 20 mg PO QAM Qty: 180 3RF Rx Instructions: 40 mg orally each morning. Take additional 20 mg in afternoon for persistent leg swelling; last filled 08/02 60 day supply alprazolam 0.5 mg tablet,disintegrating 0.5 mg PO BID PRN (Reason: Anxiety) Qty: 0 0RF prednisone 10 mg tablet 10 mg PO DIRECTED Qty: 0 0RF Rx Instructions: start 09/22/24. 6 tabs PO QD x 3 days; then 5 tabs PO QD x 5 days; then 4 tabs PO QD x 5 days; then 3 tabs PO QD x 5 days; then 2 tabs PO QD thereafter. Discontinued carvedilol 6.25 mg tablet 6.25 mg PO UD Rx Instructions: 6.25mg po bid. filled 09/01 90 day supply leflunomide 10 mg tablet 10 mg PO QAM tramadol 50 mg tablet 50 mg PO Q6 PRN (Reason: Pain) Discharge Orders: Discharge Order (Routine); Ordered 09/21/24 Ordered By: Ryan Deleon Admission Data Admit Date/Time: 09/15/24 14:58 Attending Provider: Ryan Deleon Admit Provider: Annelise Madrigal Primary Care Provider: Denia Calderon Other Providers: Annelise Madrigal; [facility]; Isidro Mccoy; Tyree Weber Hospital Stay Data Consultations 09/13/24 17:41 ED Decision to Admit Stat 09/17/24 15:10 Consult Rheumatology Routine 09/20/24 13:39 Consult Orthopedic Spine Surgery Routine Diagnostic Imagining Performed 09/19/24 10:58 MR lumbar spine wo con Urgent 09/20/24 14:08 US venous doppler LE BI Routine Pending Results Patient Have Any Pending Studies at Discharge: Yes Discharge Instructions Given to Patient (Per Discharging Provider) Mrs Trevizo was hospitalized due to severe polyarticular inflammatory arthritis, mainly of multiple joints of the legs (ankles, feet, etc). She responded well to higher amounts of prednisone therapy. The arthritis is either due to Inflammatory Bowel Disease (IBD) and/or gout. She also had low back pain and some right leg pain which may have been due to lumbar degenerative joint disease. The back pain and right leg pain have improved as well. She was seen by rheumatology and ortho-spine. Rheumatology advised slow taper of prednisone starting at 60mg/day and decreasing by 10mg every 5 days until 20mg/day is reached. Mrs Trevizo should stay on the 20mg/day of prednisone until seen by [facility]. Ortho-spine (Dr Weber) advises follow-up in the ortho clinic in 2-3 months for recheck of her lumbar spine. Recommendations - 1. PT/OT - eval & Rx 2. Check BSGs at least twice daily 3. Check CBC, BMP, and magnesium in 4-5 days for stability 4. As long as Mrs Trevizo is on 20mg of prednisone per day or more she should remain on once daily Bactrim SS for pneumocystis prophylaxis; please follow creatinine and potassium levels as needed while on such 5. f/u Dr Bashir Young, [facility], in 2-3 weeks - she will be a new patient to Dr Young 6. psychology consult for anxiety management 7. STOP Leflunomide It was our pleasure to care for Mrs Trevizo! Coding Diagnoses Inflammatory arthritis M19.90 Degenerative lumbar spinal stenosis M48.061 Ambulatory dysfunction R26.2 Chronic kidney disease with active medical management without dialysis, stage 3 (moderate) N18.30 Cirrhosis K74.60 Ulcerative pancolitis K51.00 ELVI (acute kidney injury) N17.9
[2024-09-21 14:11] VITALS: BP 160/76; PULSE 84; TEMP 97.7; O2SAT 94
== END 2024-09-21 14:53 | DRG 554 ==
LOC: 3W 12:56 → ED 12:56 → 3W 20:37 → SUATTDRO 09-15 14:58